=== PATIENT | male | born 1945 | race Caucasian/White ===

== ENCOUNTER → 2018-12-24 08:29 | Outpatient (CLI) | payer OTHER, SELFPAY ==
[2018-12-24 10:06] LABS: Add Manual Diff / Slide Review NO; Basophils Absolute Auto 0 /uL (0-100); Basophils Percent Auto 0.8 % (0-2); Eosinophils Absolute Auto 100 /uL (0-450); Eosinophils Percent Auto 1.7 % (2-4); Hemoglobin 13.9 g/dL (13.5-17.5); Lymphocytes Absolute Auto 1500 /uL (1100-4500); Lymphocytes Percent Auto 25.5 % (25-40); Mean Corpuscular Hemoglobin 29.8 PG (26-34); Mean Corpuscular Volume 87.6 fL (80-100); Monocytes Absolute Auto 600 /uL (0-900); Neutrophils Absolute Auto 3500 /uL (1500-7000); Platelet Count 224 X10^3/uL (150-400); Red Blood Cell Count 4.68 X10^6/uL (4.5-5.9); Red Cell Distribution Width 13.9 % (11.6-14.8); White Blood Cell Count 5.7 X10^3/uL (4.5-11.0)
[2018-12-24 10:15] LABS: Alanine Aminotransferase 16 IU/L (21-72); Albumin 4.4 g/dL (3.5-5.0); Albumin Globulin Ratio 1.6 (1.0-2.8); Alkaline Phosphatase 126 U/L (38-126); Aspartate Aminotransferase 24 IU/L (17-59); BUN Creatinine Ratio 16.3 (6-22); Bilirubin Total 0.9 mg/dL (0.2-1.3); Blood Urea Nitrogen 13 mg/dL (9-20); Carbon Dioxide 30 mmol/L (22-32); Chloride 104 mmol/L (98-107); Cholesterol 120 mg/dL (140-199); Estimated Glomerular Filt Rate > 60.0 mL/min (>60); Globulin 2.8 g/dL (1.7-4.1); Glucose 91 mg/dL (80-110); HDL Cholesterol 48 mg/dL (40-60); HEMOLYSIS < 15 (0-50); LDL Cholesterol Calculated 63 mg/dL (<100); Potassium 3.8 mmol/L (3.4-5.1); Sodium 145 mmol/L (137-145); Total Protein 7.2 g/dL (6.3-8.2); Triglycerides 46 mg/dL (35-150)
[2018-12-24 10:47] LABS: Thyroid Stimulating Hormone 2.48 uIU/mL (0.47-4.68)
[2018-12-24 10:50] LABS: Prostate Specific Antigen 1.05 ng/mL (0.10-4.00)
== END ==
PROVIDERS: Family Provider Family Medicine; PCP Family Medicine; Visit Provider Family Medicine
DX: E03.9 Hypothyroidism, unspecified (principal); E78.2 Mixed hyperlipidemia; Z00.00 Encounter for general adult medical examination without abnormal findings; Z12.5 Encounter for screening for malignant neoplasm of prostate
CPT/HCPCS: 36415; 80053; 80061; 84153; 84443; 85025

== ENCOUNTER → 2020-09-10 09:01 | Outpatient (CLI) | payer OTHER, SELFPAY ==
[2020-09-10 10:21] LABS: Alanine Aminotransferase 19 IU/L (<50); Albumin 4.5 g/dL (3.5-5.0); Albumin Globulin Ratio 1.8 (1.0-2.8); Alkaline Phosphatase 128 U/L (38-126); Aspartate Aminotransferase 41 IU/L (17-59); BUN Creatinine Ratio 18.2 (6-22); Bilirubin Total 0.7 mg/dL (0.2-1.3); Blood Urea Nitrogen 16 mg/dL (9-20); Calcium 10.2 mg/dL (8.4-10.2); Carbon Dioxide 28 mmol/L (22-32); Chloride 103 mmol/L (98-107); Cholesterol 121 mg/dL (140-199); Estimated Glomerular Filt Rate > 60.0 mL/min (>60); Globulin 2.5 g/dL (1.7-4.1); Glucose 93 mg/dL (80-110); HDL Cholesterol 59 mg/dL (40-60); HEMOLYSIS < 15 (0-50); LDL Cholesterol Calculated 55 mg/dL (<100); Potassium 3.7 mmol/L (3.4-5.1); Sodium 141 mmol/L (137-145); Triglycerides 34 mg/dL (35-150)
[2020-09-10 10:50] LABS: TSH w/ Reflex to FT4 1.46 uIU/mL (0.47-4.68)
[2020-09-10 10:51] LABS: Prostate Specific Antigen Scrn 0.986 ng/mL (0.1-4.0)
== END ==
PROVIDERS: Family Provider Family Medicine; PCP Family Medicine; Referring Provider Family Medicine; Visit Provider Family Medicine
DX: E03.9 Hypothyroidism, unspecified (principal); Z12.5 Encounter for screening for malignant neoplasm of prostate; E78.2 Mixed hyperlipidemia
CPT/HCPCS: 36415; 80053; 80061; 84443; G0103

== ENCOUNTER → 2020-09-21 09:59 | Outpatient (CLI) | payer MEDICARE, SELFPAY ==
[2020-09-21] MEDS: COVID-19 VACC, Ad26(JANSSEN)/PF 0.5 ML IM (10:14)
== END ==
PROVIDERS: Family Provider Family Medicine; PCP Family Medicine; Visit Provider Internal Medicine
DX: Z23 Encounter for immunization (principal)
CPT/HCPCS: 0031A; 91303

== ENCOUNTER 2021-05-31 23:17 | Inpatient (IN) | payer OTHER, SELFPAY ==
[2021-05-31 23:24] VITALS: BP 133/79; PULSE 89; RESP 17; TEMP 37.4; O2SAT 97; BMI 24.2
[2021-05-31 23:40] LABS: Add Manual Diff / Slide Review NO; Basophils Absolute Auto 0 /uL (0-100); Eosinophils Absolute Auto 0 /uL (0-450); Hematocrit 42.4 % (41-53); Hemoglobin 14.6 g/dL (13.5-17.5); Lymphocytes Absolute Auto 200 /uL (1100-4500); Mean Corpuscular HGB Conc 34.4 % (30-36); Mean Corpuscular Hemoglobin 29.5 PG (26-34); Mean Corpuscular Volume 85.5 fL (80-100); Monocytes Absolute Auto 500 /uL (0-900); Neutrophils Absolute Auto 7600 /uL (1500-7000); Platelet Count 193 X10^3/uL (150-400); Red Blood Cell Count 4.96 X10^6/uL (4.5-5.9); Red Cell Distribution Width 13.5 % (11.6-14.8); White Blood Cell Count 8.3 X10^3/uL (4.5-11.0)
[2021-05-31 23:41] LABS: Alanine Aminotransferase 26 IU/L (<50); Albumin 4.2 g/dL (3.5-5.0); Albumin Globulin Ratio 1.7 (1.0-2.8); Alkaline Phosphatase 77 U/L (38-126); Aspartate Aminotransferase 34 IU/L (17-59); BUN Creatinine Ratio 12.5 (6-22); Bilirubin Total 1.1 mg/dL (0.2-1.3); Blood Urea Nitrogen 10 mg/dL (9-20); Carbon Dioxide 32 mmol/L (22-32); Chloride 92 mmol/L (98-107); Estimated Glomerular Filt Rate > 60.0 mL/min (>60); Globulin 2.5 g/dL (1.7-4.1); Glucose 148 mg/dL (80-110); HEMOLYSIS < 15 (0-50); Lipase 10 U/L (23-300); Potassium 3.2 mmol/L (3.4-5.1); Sodium 133 mmol/L (137-145); Total Protein 6.7 g/dL (6.3-8.2)
--- NOTE | 2021-05-31 23:50 | DI.RAD.S_ITS ---
PROCEDURE: XR ACUTE ABDOMEN SERIES INDICATIONS: left lower quadrant pain TECHNIQUE: One view chest and two views of the abdomen were acquired. COMPARISON: None. FINDINGS: Surgical changes and devices: None. Chest: Mild patchy bilateral perihilar and basilar reticulonodular density.. Heart size is normal. No pleural effusions. No pneumoperitoneum. Abdomen: Bowel gas pattern is normal. No suspicious calcifications. Visualized solid organ contours appear normal. Bones: No suspicious bony lesions. IMPRESSION: Mild atypical pneumonia. No acute intra-abdominal process. Dictated by: Christina Alva M.D. on 06/01/2021 at 0:14 Approved by: Christina Alva M.D. on 06/01/2021 at 0:14
[2021-06-01] VITALS (48 sets, daily range): BP systolic 82–167; BP diastolic 6–94; PULSE 57–95; RESP 7–18; TEMP 36.4–37.3; O2SAT 92–100; BMI 24.2
--- NOTE | 2021-06-01 | PATH_ITS ---
[facility] Accession Number: [id number] . 01 Material submitted: . sigmoid colon - SIGMOID COLON . 02 Diagnosis: Sigmoid Colon, Resection (Length 15.0 cm): Extensive serosal exudate and adhesions (perforation per operative report) in a region of disruption. No dysplasia or malignancy identified. Margins appear viable and without diagnostic abnormality. MRV 06/08/2021 1304 Local . 02 Electronically signed: . Nivia Shepherd MD, Pathologist NPI- [id number] . 01 Gross description: . The specimen is received in formalin, labeled sigmoid colon and consists of a 15.0 cm in length by 5.0 cm in diameter portion of colon with two stapled margins. The serosa is brooks-pink and smooth, and there is a 7.0 x 6.0 cm area of brooks-green exudate and fibrinous adhesions, located 3.0 cm from the nearest stapled margin. Opening reveals a brooks-pink mucosa with normal to attenuated mucosal folds. The wall thickness ranges from 0.1-0.5 cm. No lymph node are identified within the attached adipose tissue. Skilled Trades Teacher sections are submitted. . A1-A2: Stapled margins, customer relations representative perpendicular sections (blue and black). A3-A5: Area of disruption with exudate. A6: Skilled Trades Teacher colon. ([id number]) /MRV 06/02/2021 1211 Local . 02 Pathologist provided ICD-10: Z00.01 . 02 CPT . 147907 Performed at: 01 [facility] [address] [facility], [place], [place] [id number] MD Hussein Thurman MD Phone: [phone] Performed at: 02 [facility] [address] [place] [id number] MD Nicki Goodwin MD Phone: [phone]
--- NOTE | 2021-06-01 01:28 | DI.CT.S_ITS ---
PROCEDURE: CT ABDOMEN PELVIS W CON INDICATIONS: severe abdominal pain, lower abdomen TECHNIQUE: After the administration of intravenous contrast, axial sections acquired from the lung bases to the pubic symphysis. Coronal and sagittal reformats were performed. For radiation dose reduction, the following was used: automated exposure control, adjustment of mA and/or kV according to patient size. COMPARISON: None. FINDINGS: Image quality: Excellent. Lung bases: Mild bibasilar atelectasis versus pneumonia. Heart: No significant findings. ABDOMEN: Liver: Unremarkable. Gallbladder: Wall is mildly thickened Biliary ducts: Unremarkable. Pancreas: Unremarkable. Spleen: Unremarkable. Adrenal Glands: Unremarkable. Kidneys and Ureters: Unremarkable. Stomach and Bowel: Stomach is moderately distended. Multiple mildly distended loops of small bowel within the left hemiabdomen which are mildly thickened. Colon is nondistended. There is thickening of the descending and sigmoid colon. There is a large collection of extraluminal stool and gas within the left hemipelvis, spanning roughly 11 cm craniocaudal by 10 cm transverse. Peritoneum: Small amount of free fluid within the abdomen and pelvis. Small amount of pneumoperitoneum in the abdomen and pelvis. Ventral Wall: No hernias. Abdominal Nodes: No retroperitoneal or mesenteric adenopathy by size criteria. Vessels: Aorta and inferior vena cava are normal in size. PELVIS: Pelvic Organs: Unremarkable. Bladder: Unremarkable. Pelvic Nodes: No enlarged lymph nodes. Miscellaneous: No hernias are seen. Bones: Unremarkable. IMPRESSION: 1. Bowel perforation within the left hemipelvis, resulting in a large extraluminal collection of stool. Pneumoperitoneum is also present. This likely represents perforation of the sigmoid colon, secondary to diverticulitis or ischemic bowel. 2. Mildly distended and thickened loops of small bowel within the left pelvis and abdomen, likely secondary. 3. Distended stomach. 4. Findings discussed with Dr. Red on 06/01/2021 at 01:58 hours. Dictated by: Christina Alva M.D. on 06/01/2021 at 1:56 Approved by: Christina Alva M.D. on 06/01/2021 at 2:00
[2021-06-01] MEDS: ONDANSETRON 4 MG/2 ML INJ IV ×2 (01:40→21:51)
[2021-06-01] MEDS: HYDROMORPHONE 1 MG INJ IV (01:40)
[2021-06-01] MEDS: SODIUM CHLORIDE 0.9% 1,000 ML 1000 ML IV (01:41)
--- NOTE | 2021-06-01 01:50 | ED.GENADULT ---
HPI - General Adult General Chief complaint: Abdominal Pain Stated complaint: abd px h/o pancreatitis Time Seen by Provider: 06/01/21 00:40 Source: patient and EMS Mode of arrival: EMS Limitations: no limitations History of Present Illness HPI narrative: 75-year-old gentleman with a history of hypertension, hypothyroidism and BPH who presents with abdominal pain it has been present since this morning and has gotten worse by mid afternoon. He did have a bowel movement this morning that did not influences pain. He describes it is involving his entire lower abdomen, sharp pain that just ?hurts?. Over the last few hours he reports that he has not been passing any flatus. He denies any fevers, cough, chills, nausea or vomiting. He has not had any chest pain, palpitations lower extremity edema. He has never had abdominal pain like this. He denies any abdominal surgeries previously. Related Data Previous Rx's Medication Instructions Recorded loratadine 10 mg tablet (Claritin) 10 mg PO DAILY #90 tab 12/24/18 alprazolam 0.5 mg tablet (Xanax) 0.5 mg PO BIDP PRN #20 tab 12/09/19 levothyroxine 50 mcg tablet 50 mcg PO DAILY #90 tab 09/10/20 tamsulosin 0.4 mg capsule (Flomax) 0.4 mg PO QDAY #90 cap 10/21/20 amoxicillin 875 mg-potassium 1 tab PO BID #20 tab 02/16/21 clavulanate 125 mg tablet (Augmentin) benazepril 20 See Rx Instructions .ROUTE 03/01/21 mg-hydrochlorothiazide 25 mg tablet .COMPLEX #60 tab Allergies Allergy/AdvReac Type Severity Reaction Status Date / Time No Known Drug Allergies Allergy Unverified 09/10/20 09:21 Review of Systems Review of Systems Narrative: Remainder of complete review of systems is otherwise unremarkable except for that included in the HPI. Patient History Medical History Hypertension Hypothyroidism Social History Smoking Status: Current every day smoker Smoking Status: Current every day smoker Substance Use Type: does not use Exam Narrative Exam Narrative: General: Healthy appearing, in obvious abdominal pain. Able to give a complete and coherent history. Well-nourished well-developed HEENT: Moist mucous membranes, normal sclera with reactive pupils, Neck: No JVD, supple Respiratory: Lungs are clear to auscultation, no wheezing no rales no rhonchi. Full and symmetrical air movement Cardiac: Regular rate and rhythm no murmurs no bruits Abdomen: Distended, diffusely tender with guarding in the lower abdomen. Rushes and tinkles appreciated on exam. He does not have any rebound. There is no flank pain Skin: Warm and dry, no rashes Neurologic: Grossly neurologically intact with no obvious asymmetries or abnormalities Extremities: No trauma, well perfused, no lower extremity edema Psych: Cooperative, appropriate insight and affect Initial Vital Signs Initial Vital Signs: Vital Signs Temperature 99.3 F 05/31/21 23:24 Pulse Rate 89 05/31/21 23:24 Respiratory Rate 17 05/31/21 23:24 Blood Pressure 133/79 05/31/21 23:24 Pulse Oximetry 97 05/31/21 23:24 Course Orders Ordered: ED Orders 05/31/21 23:33 Complete Blood Count AUTO DIFF Stat Comprehensive Metabolic Panel Stat Lipase Stat 05/31/21 23:50 XR acute abdomen series Stat 06/01/21 01:28 CT abdomen pelvis w con Stat 06/01/21 02:11 Blood Culture Stat Lactate (Lactic Acid) Stat 06/01/21 03:00 COVID19 - ADMIT (CEMENT TESTER ASSISTANT swab/PCR) Stat Hydromorphone HCl (Hydromorphone 0.5 Mg Inj) 0.5 mg IV Q15MIN PRN PRN Reason: Pain, Last Admin: 06/01/21 03:04 Dose: 0.5 mg Documented by: Admin: 06/01/21 02:30 Dose: 0.5 mg Documented by: FREEMAN Discontinued Medications Hydromorphone HCl (Hydromorphone 1 Mg Inj) 1 mg IV NOW ONE Stop: 06/01/21 01:29 Last Admin: 06/01/21 01:40 Dose: 1 mg Documented by: JESSIE Sodium Chloride (Normal Saline 0.9%) 1,000 mls @ 1,000 mls/hr IV BOLUS ONE Stop: 06/01/21 02:27 Last Infusion: 06/01/21 03:05 Dose: 0 mls/hr Documented by: Admin: 06/01/21 01:41 Dose: 1,000 mls/hr Documented by: JESSIE Piperacillin Sod/Tazobactam (Sod 4.5 gm/ Sodium Chloride) 100 mls @ 200 mls/hr IV NOW ONE Stop: 06/01/21 02:01 Last Infusion: 06/01/21 03:05 Dose: 0 mls/hr Documented by: Admin: 06/01/21 02:28 Dose: 200 mls/hr Documented by: FREEMAN Lidocaine HCl (Lidocaine 2% (Glydo) 6 Ml Gel) 6 ml TOP NOW ONE Stop: 06/01/21 02:27 Last Admin: 06/01/21 02:28 Dose: 6 ml Documented by: FREEMAN Ondansetron HCl (Ondansetron 4 Mg/2 Ml Inj) 4 mg IV NOW ONE Stop: 06/01/21 01:29 Last Admin: 06/01/21 01:40 Dose: 4 mg Documented by: JESSIE Vital Signs Vital signs: Vital Signs - 8 hr 05/31/21 23:24 06/01/21 00:06 06/01/21 00:30 Temperature 99.3 F Pulse Rate 89 88 75 Respiratory Rate 17 Blood Pressure 133/79 144/80 H 119/62 Pulse Oximetry 97 99 96 06/01/21 01:00 06/01/21 01:30 06/01/21 01:49 Temperature Pulse Rate 78 81 95 H Respiratory Rate Blood Pressure 131/68 129/67 158/74 H Pulse Oximetry 97 96 98 06/01/21 02:00 Temperature Pulse Rate 80 Respiratory Rate Blood Pressure 136/60 Pulse Oximetry 98 Medical Decision Making Lab Data Result diagrams: 05/31/21 23:33 05/31/21 23:33 Labs: Lab Results 05/31/21 05/31/21 06/01/21 Range/Units 23:33 23:33 02:11 WBC 8.3 (4.5-11.0) X10^3/uL RBC 4.96 (4.5-5.9) X10^6/uL Hgb 14.6 (13.5-17.5) g/dL Hct 42.4 (41-53) % MCV 85.5 (80-100) fL MCH 29.5 (26-34) PG MCHC 34.4 (30-36) % RDW 13.5 (11.6-14.8) % Plt Count 193 (150-400) X10^3/uL Neut % (Auto) 91.0 H (50-75) % Lymph % (Auto) 3.0 L (25-40) % [place] % (Auto) 6.0 (3-14) % Eos % (Auto) 0.0 L (2-4) % Baso % (Auto) 0.0 (0-2) % Neut # (Auto) 7600 H (1524-6545) /uL Lymph # (Auto) 200 L (0371-3232) /uL [place] # (Auto) 500 (0-900) /uL Eos # (Auto) 0 (0-450) /uL Baso # (Auto) 0 (0-100) /uL Sodium 133 L (137-145) mmol/L Potassium 3.2 L (3.4-5.1) mmol/L Chloride 92 L (98-107) mmol/L Carbon Dioxide 32 (22-32) mmol/L BUN 10 (9-20) mg/dL Creatinine 0.80 (0.66-1.25) mg/dL Estimated GFR > 60.0 (>60) mL/min BUN/Creatinine Ratio 12.5 (6-22) Glucose 148 H (80-110) mg/dL Lactate 1.9 (0.7-2.1) mmol/L Calcium 10.0 (8.4-10.2) mg/dL Total Bilirubin 1.1 (0.2-1.3) mg/dL AST 34 (17-59) IU/L ALT 26 (<50) IU/L Alkaline Phosphatase 77 (38-126) U/L Total Protein 6.7 (6.3-8.2) g/dL Albumin 4.2 (3.5-5.0) g/dL Globulin 2.5 (1.7-4.1) g/dL Albumin/Globulin Ratio 1.7 (1.0-2.8) Lipase 10 L (23-300) U/L Imaging Data Chest x-ray: Radiologist's Impression: FINDINGS:? ? Surgical changes and devices:? None.? ? Chest:? Mild patchy bilateral perihilar and basilar reticulonodular density..? Heart size is normal.? No pleural effusions.? No pneumoperitoneum.? ? Abdomen:? Bowel gas pattern is normal.? No suspicious calcifications.? Visualized solid organ contours appear normal.? ? Bones:? No suspicious bony lesions.? ? IMPRESSION:? Mild atypical pneumonia.? No acute intra-abdominal process. ? ? Dictated by: Christina Alva M.D. on 06/01/2021 at 0:14 ? ? CT scan - abdomen/pelvis: Radiologist's Impression: FINDINGS:? Image quality:? Excellent.? ? Lung bases:? Mild bibasilar atelectasis versus pneumonia. Heart:? No significant findings. ? ABDOMEN: Liver:? Unremarkable.? ? Gallbladder:? Wall is mildly thickened? ? Biliary ducts:? Unremarkable.? ? Pancreas:? Unremarkable.? ? Spleen:? Unremarkable.? ? Adrenal Glands:? Unremarkable.? ? Kidneys and Ureters:? Unremarkable.? ? ? Stomach and Bowel:? Stomach is moderately distended.? Multiple mildly distended loops of small bowel within the left hemiabdomen which are mildly thickened.? Colon is nondistended.? There is thickening of the descending and sigmoid colon.? There is a large collection of extraluminal stool and gas within the left hemipelvis, spanning roughly 11 cm craniocaudal by 10 cm transverse. Peritoneum:? Small amount of free fluid within the abdomen and pelvis.? Small amount of pneumoperitoneum in the abdomen and pelvis. ? Ventral Wall: ? No hernias.? Abdominal Nodes:? No retroperitoneal or mesenteric adenopathy by size criteria.? Vessels:? Aorta and inferior vena cava are normal in size.? ? PELVIS: Pelvic Organs:? Unremarkable.? ? Bladder:? Unremarkable.? ? Pelvic Nodes: No enlarged lymph nodes.? Miscellaneous: No hernias are seen. ? ? ? Bones:? Unremarkable.? IMPRESSION:? 1. Bowel perforation within the left hemipelvis, resulting in a large extraluminal collection of stool.? Pneumoperitoneum is also present.? This likely represents perforation of the sigmoid colon, secondary to diverticulitis or ischemic bowel. 2. Mildly distended and thickened loops of small bowel within the left pelvis and abdomen, likely secondary. 3. Distended stomach. 4. Findings discussed with Dr. Red on 06/01/2021 at 01:58 hours.? ? Dictated by: Christina Alva M.D. on 06/01/2021 at 1:56 ? ? ECG Data Interpretation: Sinus rhythm with arrhythmia Rate of 87 No acute ischemia MDM Narrative Medical decision making narrative: Basically healthy 75-year-old gentleman with increasing abdominal pain over the last 12 hours. He notes in retrospect that he has been somewhat more constipated over the last couple days but that is not a chronic problem for him. Lab work was reassuring and initial chest x-ray did not suggest dramatic abnormalities however clinical exam was concerning for acute surgical abdomen so CT scan was pursued. CT scan with multiple significant findings including a bowel perforation in the left hemipelvis resulting in a large extraluminal collection of stool. Pneumoperitoneum. Likely represents perforation of the sigmoid colon secondary to diverticulitis or ischemic bowel. Distended stomach. Discussed with Dr Alva at 1:50 am 2:[address] Rose, general surgeon. Reviewed findings in case. Agreed with plan for NG tube, antibiotics, pain control, gentle IV hydration and operating room early this morning. Will be admitted as an inpatient to Dr. Rose. 2:10am findings reviewed with patient. After a full mg of Dilaudid his pain is much better controlled. Currently working on additional blood work, COVID testing an NG tube placement. Findings are reviewed with him along with anticipated emergent surgery in a couple of hours with resulting colostomy expected. Of note, his is currently admitted to the hospital after having had a stroke. 2:20 pain is currently controlled, he is hemodynamically stable. supervisor beet end has been notified of anticipated sole painter surgery. 5:15 approximately 800 cc of fluid out of the NG tube in pain is much better controlled at this time. Resting comfortably . Discharge Plan Departure Patient Disposition: Admitted As Inpatient Clinical Impression: Bowel perforation, Pneumoperitoneum Admit Date/Time: 06/01/21 02:17 Admit Provider: Bala Rose
[2021-06-01] MEDS: LIDOCAINE 2% (GLYDO) 6 ML GEL TOP (02:28)
[2021-06-01] MEDS: PIPERACILLIN/TAZO 4.5 GM in SODIUM CHLORIDE 0.9% 100 ML 200 ML IV (02:28)
[2021-06-01] MEDS: HYDROMORPHONE 0.5 MG INJ IV ×3 (02:30→06:03)
[2021-06-01 02:40] LABS: Lactate (Lactic Acid) 1.9 mmol/L (0.7-2.1)
[2021-06-01 04:42] LABS: COVID19 - ADMIT (NP swab/PCR) Negative (Negative)
--- NOTE | 2021-06-01 06:03 | PC.NURSE ---
Dr. Rose in ED for surgical consult.
--- NOTE | 2021-06-01 06:08 | PM.HP.1 ---
History of Present Illness History of Present Illness Date Patient Seen: 06/01/21 Time Patient Seen: 06:08 Date of Onset of Symptoms: 05/31/21 Chief complaint: Abdominal pain Narrative: Elkin is a 75-year-old man who presents today to the emergency department overnight complaining of several hours of severe abdominal pain. He had a bowel movement yesterday morning which was unremarkable. He has been constipated for several days. He did take 1 narcotic pain pill for hip pain several days ago. He is not normally constipated. He had a colonoscopy many years ago but he is not sure exactly when. Patient History Medical History Hypertension Hypothyroidism Family & Social History Safety & Behavioral: Feels Safe in Current Yes Environment Tobacco & Substance use: Smoking Status Current every day smoker Substance Use Type does not use Meds Home Medications and Allergies Home Medications Medication Instructions Recorded Confirmed Type loratadine 10 mg tablet (Claritin) 10 mg PO DAILY #90 tab 12/24/18 Rx alprazolam 0.5 mg tablet (Xanax) 0.5 mg PO BIDP PRN #20 tab 12/09/19 Rx levothyroxine 50 mcg tablet 50 mcg PO DAILY #90 tab 09/10/20 09/10/20 Rx tamsulosin 0.4 mg capsule (Flomax) 0.4 mg PO QDAY #90 cap 10/21/20 10/21/20 Rx amoxicillin 875 mg-potassium 1 tab PO BID #20 tab 02/16/21 Rx clavulanate 125 mg tablet (Augmentin) benazepril 20 See Rx Instructions .ROUTE 03/01/21 Rx mg-hydrochlorothiazide 25 mg tablet .COMPLEX #60 tab Allergies Allergy/AdvReac Type Severity Reaction Status Date / Time No Known Drug Allergies Allergy Unverified 09/10/20 09:21 Exam Vital Signs (past 8 hours): - 05/31/21 23:24 06/01/21 00:06 06/01/21 00:30 Temperature 99.3 F Pulse Rate 89 88 75 Respiratory Rate 17 Blood Pressure 133/79 144/80 H 119/62 Pulse Oximetry 97 99 96 06/01/21 01:00 06/01/21 01:30 06/01/21 01:49 Temperature Pulse Rate 78 81 95 H Respiratory Rate Blood Pressure 131/68 129/67 158/74 H Pulse Oximetry 97 96 98 06/01/21 02:00 06/01/21 02:30 06/01/21 03:00 Temperature Pulse Rate 80 87 84 Respiratory Rate Blood Pressure 136/60 119/67 151/68 H Pulse Oximetry 98 94 92 06/01/21 03:30 06/01/21 04:00 06/01/21 04:30 Temperature Pulse Rate 59 L 61 62 Respiratory Rate Blood Pressure 116/71 128/66 Pulse Oximetry 97 98 98 06/01/21 05:00 06/01/21 05:30 Temperature Pulse Rate 61 63 Respiratory Rate Blood Pressure 130/65 121/71 Pulse Oximetry 99 99 Oxygen Delivery Method Room Air Const General: healthy appearing Resp Effort & Inspection: normal respiratory effort Cardio Rate: regular rate GI Other: Rigid abdomen Objective Labs Result Diagrams: 05/31/21 23:33 05/31/21 23:33 Labs: Laboratory Results - last 24 hr 05/31/21 05/31/21 06/01/21 23:33 23:33 02:11 WBC 8.3 RBC 4.96 Hgb 14.6 Hct 42.4 MCV 85.5 MCH 29.5 MCHC 34.4 RDW 13.5 Plt Count 193 Neut % (Auto) 91.0 H Lymph % (Auto) 3.0 L [place] % (Auto) 6.0 Eos % (Auto) 0.0 L Baso % (Auto) 0.0 Neut # (Auto) 7600 H Lymph # (Auto) 200 L [place] # (Auto) 500 Eos # (Auto) 0 Baso # (Auto) 0 Sodium 133 L Potassium 3.2 L Chloride 92 L Carbon Dioxide 32 BUN 10 Creatinine 0.80 Estimated GFR > 60.0 BUN/Creatinine Ratio 12.5 Glucose 148 H Lactate 1.9 Calcium 10.0 Total Bilirubin 1.1 AST 34 ALT 26 Alkaline Phosphatase 77 Total Protein 6.7 Albumin 4.2 Globulin 2.5 Albumin/Globulin Ratio 1.7 Lipase 10 L SARS-CoV-2 (PCR) 06/01/21 03:00 WBC RBC Hgb Hct MCV MCH MCHC RDW Plt Count Neut % (Auto) Lymph % (Auto) [place] % (Auto) Eos % (Auto) Baso % (Auto) Neut # (Auto) Lymph # (Auto) [place] # (Auto) Eos # (Auto) Baso # (Auto) Sodium Potassium Chloride Carbon Dioxide BUN Creatinine Estimated GFR BUN/Creatinine Ratio Glucose Lactate Calcium Total Bilirubin AST ALT Alkaline Phosphatase Total Protein Albumin Globulin Albumin/Globulin Ratio Lipase SARS-CoV-2 (PCR) Negative Assessment & Plan Assessment and plan (1) Perforated sigmoid colon: Status: Acute Plan I explained to Elkin that the CT indicates that he has perforated sigmoid colon with feculent peritonitis. I suspect this is a perforated stercoral ulcer however perforated diverticulitis or perforated colon cancer are also possible. I explained to him that he will need emergency exploratory laparotomy with an end colostomy. Although he is hemodynamically stable now I would expect him to quickly become very ill eventually if we do not proceed to the surgery this morning. I explained that he will have a colostomy when he wakes up from surgery and this will be temporary as long as he remains healthy and can be reversed 3 to 6 months after surgery. He is receiving Zosyn in the ER now. He would like to proceed with surgery. Time Spent With Patient Critical Care time: I spent a total of [] minutes of critical care time on this patient's care today; this time is exclusive of procedural time.
--- NOTE | 2021-06-01 06:50 | PC.NURSE ---
OR team here to transport pt to surgery
[2021-06-01] MEDS: LACTATED RINGERS 1,000 ML 42 ML IV ×3 (07:11→13:54)
[2021-06-01] MEDS: LIDOCAINE 2% W/EPI INJ 20 ML INJ (07:40)
--- NOTE | 2021-06-01 07:45 | SUR.OPER ---
Supine on padded OR bed, head on pillow, arms secured on padded arm boards at <90 degrees abduction, legs uncrossed, safety belt at thigh, tape over blanket over lower legs.
[2021-06-01] MEDS: ACETAMINOPHEN 1,000 MG/100 ML VIAL IV (07:50)
[2021-06-01] MEDS: PIPERACILLIN/TAZO 3.375 GM in SODIUM CHLORIDE 0.9% 100 ML 25 ML IV (09:42)
[2021-06-01] MEDS: BUPIVACAINE LIPOSOME 266 MG/20 ML VIAL INJ (09:45)
--- NOTE | 2021-06-01 10:43 | PM.OP.1 ---
Operative Date/Time/Diagnoses Date of procedure: 06/01/21 Time of procedure: 10:43 Pre-op diagnosis: Perforated sigmoid colon Post-op diagnosis: same Procedure & Clinicians Procedure: Exploratory laparotomy, sigmoid colectomy, peritoneal lavage and end colostomy Same procedure as scheduled: Yes Indications: Perforated sigmoid colon Surgeon: Bala Rose Click Yes if Unassisted: Yes Anesthesia Type: General Operative Notes Findings: Large full-thickness perforation of the proximal sigmoid colon with a 5 cm collection of solid stool in the sigmoid mesentery Applied: catheter and drain(s) Estimated Blood Loss (mL): 40 Procedure in detail: The patient was on Zosyn. The patient was brought to the operating room, placed on the table in the supine position and general endotracheal anesthesia was induced. A Monroe catheter was placed. The abdomen was prepped and draped in the usual fashion. A time-out was performed. A 10 cm low midline incision was created sharply and extended to the superior portion of the umbilicus skirting to the right. The fascia was divided with cautery. The posterior sheath was grasped between clamps and divided sharply. The peritoneum was entered and some murky ascites was suctioned. The large Amado wound retractor was placed. A Bookwalter retractor was set up. We explored the abdomen and found be some solid stool extruding from what looked like a hole in the mid sigmoid colon. We started to mobilize the sigmoid colon by taking it down along the white line of Toldt laterally. Initially, it appeared that we had entered the colon but soon realized that there was a large collection of solid stool in the sigmoid mesentery. This was scooped out by hand. We observed a 1 cm defect along the mesenteric aspect of the sigmoid colon which was the original source of the perforation. We then divided the colon at the proximal end of the sigmoid portion with a contour stapler. We started to take down the mesentery with LigaSure until we were well past the large hole. The distal portion of the sigmoid colon was again divided with a contour stapler. We removed the portion of sigmoid colon and proceeded to irrigate the pelvis with about 8 L of warm saline. There was a rather long rectal stump. We marked each corner of the staple line of the rectal stump with a 3-0 Prolene suture left long. We then proceeded to irrigate the rest of the abdomen until all visible evidence of contamination was gone. Next, we mobilized the descending colon to the splenic flexure allowing the colon to easily reach the left lower quadrant abdominal wall. We then created a colostomy site in the left lower quadrant and brought out the end of the colon. At this point we transitioned to clean gloves and gowns. We placed a 19 round Torsten drain into the left pelvis where the abscess cavity had been. We brought the drain out through a right lower quadrant stab incision, secured to the skin with a 3-0 nylon stitch and attached a bulb. Next, we injected some Exparel into the fascia and closed the midline wound with running 0 PDS suture. We then irrigated the subcutaneous wound and closed the skin with kiah. A negative pressure dressing was applied. Finally, we matured the colostomy in a Lakeisha fashion and applied a colostomy appliance. The patient was awakened and brought to recovery room. EBL 40 mL. Post-operative Condition: stable Disposition: PACU
--- NOTE | 2021-06-01 12:41 | SUR.PHASEI ---
took back over on the patient. woke up extremely anxious. tries to pull out catheter. impulsive. dr fernandez called and notified. will write orders accordingly. two nurses remain at bedside to avoid patient pulling out tubes.
[2021-06-01] MEDS: HALOPERIDOL 5 MG/ML VIAL 2.5 MG IV (12:50)
--- NOTE | 2021-06-01 13:01 | SUR.PHASEI ---
Prior to taking over the patient, patient had pulled his catheter tube fairly hard per ELADIO Murphy. patient remained aggitated. once haldol given and patient settled down we did a closer examination. ELADIO Herbert felt a ball in the shaft of his penis when assessing monroe function as we did not see urine return in the last 15 minutes. When 10cc syringe placed to deflate balloon, only air was returned, no liquid. MD notified via phone in OR. During this time entire monroe slipped out of penis. No bleeding noted from penis. MD immediately notified. Monroe placed in bag for inspection. Patient able to rest at this time. NG noted to have coffee ground colored drainage at this time, differing from original orange color prior. Colostomy remains pink, moist. Very tiny spots x2 on dressing, bloody in nature. JEFFRY Drain remains intact with serosanguenous drainage. Abdomen soft and flat.
--- NOTE | 2021-06-01 13:48 | SUR.PHASEI ---
Dr Raygoza to bedside. Examines old catheter tip and states is WNL. No bleeding continued to be noted from penis. Dr Raygoza inserted 20 g catheter with no problems or difficulties. Patient johny well.
[2021-06-01 14:24] LABS: Add Manual Diff / Slide Review NO; Basophils Absolute Auto 0 /uL (0-100); Basophils Percent Auto 0.1 % (0-2); Eosinophils Absolute Auto 0 /uL (0-450); Hematocrit 37.7 % (41-53); Hemoglobin 13.1 g/dL (13.5-17.5); Lymphocytes Absolute Auto 300 /uL (1100-4500); Lymphocytes Percent Auto 3.6 % (25-40); Mean Corpuscular HGB Conc 34.7 % (30-36); Mean Corpuscular Hemoglobin 29.8 PG (26-34); Mean Corpuscular Volume 85.8 fL (80-100); Monocytes Absolute Auto 300 /uL (0-900); Monocytes Percent Auto 3.1 % (3-14); Neutrophils Absolute Auto 8200 /uL (1500-7000); Neutrophils Percent Auto 93.2 % (50-75); Platelet Count 162 X10^3/uL (150-400); Red Blood Cell Count 4.39 X10^6/uL (4.5-5.9); Red Cell Distribution Width 13.6 % (11.6-14.8); White Blood Cell Count 8.8 X10^3/uL (4.5-11.0)
--- NOTE | 2021-06-01 14:37 | P.CONS_ITS ---
History of Present Illness Consult details Date Patient Seen: 06/01/21 Time Patient Seen: 14:37 Chief complaint: Abdominal pain Reason for consult: Traumatic removal of Monroe catheter Requesting provider: Bala Rose Narrative: This is a 75-year-old male who underwent emergent operation for apparent colonic rupture with stool in peritoneal cavity. He now has a colostomy, JEFFRY, an NG, as well as a Monroe. In in the PACU as he was waking up he became combative, and pulled his Monroe out. There was no bleeding, nursing did report a ?lump in the urethra, with further questioning this was the Monroe they deflated it and the catheter was easily removed. The patient had a silicone catheter but has no allergies. I discussed things with Dr. Rose and he feels that the patient would benefit from a Monroe catheter moving forward given the operation that he had and the disease process he was suffering from. Procedure: Noting that the patient needed a Monroe catheter the patient was prepped with Betadine and draped in a sterile fashion. The patient then had 2% viscous lidocaine instilled within the urethra as well as surgical lubricant and a 20 [place] 5 cc Monroe catheter was passed through the urethra and into the bladder without difficulty. The balloon was filled with 10 cc of sterile water and placed to gravity drainage. Clear yellow urine was observed to be flowing. Nursing was instructed to secure the Monroe and the patient was admonished not to full with any tube coming out of his body presently. These findings were then discussed with Dr. Rose letting him know that the Monroe catheter is in place and could be removed at his leisure. Meds Home Medications and Allergies Home Medications Medication Instructions Recorded Confirmed Type loratadine 10 mg tablet (Claritin) 10 mg PO DAILY #90 tab 12/24/18 Rx alprazolam 0.5 mg tablet (Xanax) 0.5 mg PO BIDP PRN #20 tab 12/09/19 Rx levothyroxine 50 mcg tablet 50 mcg PO DAILY #90 tab 09/10/20 09/10/20 Rx tamsulosin 0.4 mg capsule (Flomax) 0.4 mg PO QDAY #90 cap 10/21/20 10/21/20 Rx amoxicillin 875 mg-potassium 1 tab PO BID #20 tab 02/16/21 Rx clavulanate 125 mg tablet (Augmentin) benazepril 20 See Rx Instructions .ROUTE 03/01/21 Rx mg-hydrochlorothiazide 25 mg tablet .COMPLEX #60 tab Allergies Allergy/AdvReac Type Severity Reaction Status Date / Time No Known Drug Allergies Allergy Verified 06/01/21 09:29 Exam Vital Signs (past 8 hours): - 06/01/21 10:43 06/01/21 10:48 06/01/21 10:53 Temperature 97.5 F L Pulse Rate 65 63 62 Respiratory Rate 12 10 L 10 L Blood Pressure 82/46 L 85/46 L 87/47 L Pulse Oximetry 97 96 95 06/01/21 10:58 06/01/21 11:03 06/01/21 11:08 Temperature 97.5 F L Pulse Rate 63 62 62 Respiratory Rate 10 L 10 L 9 L Blood Pressure 86/51 L 90/49 L 97/50 L Pulse Oximetry 97 98 98 06/01/21 11:13 06/01/21 11:18 06/01/21 11:23 Temperature Pulse Rate 61 60 61 Respiratory Rate 8 L 10 L 8 L Blood Pressure 91/54 L 92/53 L 100/52 L Pulse Oximetry 98 98 98 06/01/21 11:29 06/01/21 11:34 06/01/21 11:39 Temperature Pulse Rate 59 L 60 62 Respiratory Rate 8 L 8 L 8 L Blood Pressure 95/52 L 94/55 L 98/55 L Pulse Oximetry 98 98 98 06/01/21 11:43 06/01/21 11:48 06/01/21 11:55 Temperature Pulse Rate 57 L 59 L 58 L Respiratory Rate 7 L 8 L 8 L Blood Pressure 94/56 L 95/57 L 90/56 L Pulse Oximetry 98 98 98 06/01/21 12:00 06/01/21 12:05 06/01/21 12:09 Temperature 99.2 F Pulse Rate 61 64 60 Respiratory Rate 10 L 18 10 L Blood Pressure 107/6 L 101/63 99/66 Pulse Oximetry 97 99 97 06/01/21 12:16 06/01/21 12:30 06/01/21 12:45 Temperature Pulse Rate 60 81 74 Respiratory Rate 8 L 12 15 Blood Pressure 123/63 156/80 H 167/77 H Pulse Oximetry 100 95 97 06/01/21 12:53 06/01/21 13:08 06/01/21 13:18 Temperature Pulse Rate 88 62 65 Respiratory Rate 15 12 12 Blood Pressure 139/77 110/62 98/56 L Pulse Oximetry 95 99 99 06/01/21 13:33 06/01/21 13:49 Temperature Pulse Rate 73 69 Respiratory Rate 16 15 Blood Pressure 144/62 H Pulse Oximetry 99 99 Oxygen Delivery Method Nasal Cannula Oxygen Flow Rate 2 Narrative Exam Narrative: General: This is a somnolent male resting in his bed who is noted to have somewhat restless legs. Genitourinary exam normal uncircumcised appearing penis, normal meatus without evidence of blood, normal penile shaft, normal scrotum, normal testes. Objective Labs Result Diagrams: 06/01/21 14:10 05/31/21 23:33 Labs: Laboratory Results - last 24 hr 05/31/21 05/31/21 06/01/21 23:33 23:33 02:11 WBC 8.3 RBC 4.96 Hgb 14.6 Hct 42.4 MCV 85.5 MCH 29.5 MCHC 34.4 RDW 13.5 Plt Count 193 Neut % (Auto) 91.0 H Lymph % (Auto) 3.0 L [place] % (Auto) 6.0 Eos % (Auto) 0.0 L Baso % (Auto) 0.0 Neut # (Auto) 7600 H Lymph # (Auto) 200 L [place] # (Auto) 500 Eos # (Auto) 0 Baso # (Auto) 0 Sodium 133 L Potassium 3.2 L Chloride 92 L Carbon Dioxide 32 BUN 10 Creatinine 0.80 Estimated GFR > 60.0 BUN/Creatinine Ratio 12.5 Glucose 148 H Lactate 1.9 Calcium 10.0 Total Bilirubin 1.1 AST 34 ALT 26 Alkaline Phosphatase 77 Total Protein 6.7 Albumin 4.2 Globulin 2.5 Albumin/Globulin Ratio 1.7 Lipase 10 L SARS-CoV-2 (PCR) 06/01/21 06/01/21 03:00 14:10 WBC 8.8 RBC 4.39 L Hgb 13.1 L Hct 37.7 L MCV 85.8 MCH 29.8 MCHC 34.7 RDW 13.6 Plt Count 162 Neut % (Auto) 93.2 H Lymph % (Auto) 3.6 L [place] % (Auto) 3.1 Eos % (Auto) 0.0 L Baso % (Auto) 0.1 Neut # (Auto) 8200 H Lymph # (Auto) 300 L [place] # (Auto) 300 Eos # (Auto) 0 Baso # (Auto) 0 Sodium Potassium Chloride Carbon Dioxide BUN Creatinine Estimated GFR BUN/Creatinine Ratio Glucose Lactate Calcium Total Bilirubin AST ALT Alkaline Phosphatase Total Protein Albumin Globulin Albumin/Globulin Ratio Lipase SARS-CoV-2 (PCR) Negative [facility] Medical History (Updated 06/01/21 @ 14:48 by Mando Raygoza MD) Hypertension Hypothyroidism Trauma of urethra Tobacco & Substance Use Smoking Status: Current every day smoker Assessment & Plan Assessment and plan (1) Trauma of urethra: Qualifiers: Encounter type: initial encounter Qualified Code(s): S37.30XA - Unspecified injury of urethra, initial encounter Status: Acute Plan Assessment and plan: Patient with traumatic removal of Monroe catheter without apparent significant sequelae. Plan Monroe catheter is replaced 20 [place] 5 cc atraumatically resulting in the flow of clear yellow urine. Catheter can be removed at the surgeon's pleasure. Time Spent With Patient Time with patient: less than 30 minutes Critical Care time: I spent a total of [] minutes of critical care time on this patient's care today; this time is exclusive of procedural time.
[2021-06-01 14:38] LABS: BUN Creatinine Ratio 14.4 (6-22); Blood Urea Nitrogen 15 mg/dL (9-20); Calcium 8.7 mg/dL (8.4-10.2); Carbon Dioxide 31 mmol/L (22-32); Chloride 97 mmol/L (98-107); Estimated Glomerular Filt Rate > 60.0 mL/min (>60); Glucose 126 mg/dL (80-110); HEMOLYSIS < 15 (0-50); Potassium 3.8 mmol/L (3.4-5.1); Sodium 134 mmol/L (137-145)
[2021-06-01] MEDS: DEXTROSE 5%-0.45NS W/KCL 40MEQ 1,000 ML 125 MEQ IV ×2 (15:06→22:45)
--- NOTE | 2021-06-01 18:59 | PC.NURSE ---
Pt arrived from PACU at approx 1430. A/O but drowsy and surprised he has colostomy. States he is overwhelmed with the process. NG connected to LIS. Oriented to room and call system.
[2021-06-01] MEDS: GABAPENTIN 300 MG CAPSULE PO (21:51)
[2021-06-01] MEDS: HYDROCODONE/ACET 5/325 TABLET 1 TAB PO (21:51)
[2021-06-02 01:00] VITALS: BP 136/72; PULSE 73; RESP 16; TEMP 37; O2SAT 96
[2021-06-02 05:02] VITALS: BP 121/71; PULSE 75; RESP 16; TEMP 36.7; O2SAT 96
[2021-06-02] MEDS: DEXTROSE 5%-0.45NS W/KCL 40MEQ 1,000 ML 125 MEQ IV ×2 (06:28→21:16)
--- NOTE | 2021-06-02 07:32 | P.PN_ITS ---
Subjective Subjective Date Patient Seen: 06/02/21 Time Patient Seen: 07:32 Interval history: No complaints. Exam Vital Signs (past 8 hours): - 06/02/21 01:00 06/02/21 05:02 Temperature 98.6 F 98.1 F Pulse Rate 73 75 Respiratory Rate 16 16 Blood Pressure 136/72 121/71 Pulse Oximetry 96 96 Oxygen Delivery Method Room Air Oxygen Flow Rate 0 Narrative Exam Narrative: Abdomen soft Colostomy looks well perfused. No output yet. Drain bulb contains scant dark bloody fluid Monroe collection bag contains dark yellow urine Objective Labs Result Diagrams: 06/01/21 14:10 06/01/21 14:10 Labs: Laboratory Results - last 24 hr 06/01/21 06/01/21 14:10 14:10 WBC 8.8 RBC 4.39 L Hgb 13.1 L Hct 37.7 L MCV 85.8 MCH 29.8 MCHC 34.7 RDW 13.6 Plt Count 162 Neut % (Auto) 93.2 H Lymph % (Auto) 3.6 L [place] % (Auto) 3.1 Eos % (Auto) 0.0 L Baso % (Auto) 0.1 Neut # (Auto) 8200 H Lymph # (Auto) 300 L [place] # (Auto) 300 Eos # (Auto) 0 Baso # (Auto) 0 Sodium 134 L Potassium 3.8 Chloride 97 L Carbon Dioxide 31 BUN 15 Creatinine 1.04 Estimated GFR > 60.0 BUN/Creatinine Ratio 14.4 Glucose 126 H Calcium 8.7 PFSH Medical History (Updated 06/02/21 @ 07:34 by Bala Rose MD) Hypertension Hypothyroidism Trauma of urethra Social History household members: spouse Smoking Status: Current every day smoker alcohol intake: never Assessment & Plan Assessment and plan (1) Postoperative examination: Status: Acute Plan Doing well postop day. Awaiting colostomy function Will DC NG tube Will continue Monroe catheter for now for close monitoring of urine output and because there was possible urethral trauma when he pulled his Monroe on the PACU. His urine output has been marginal overnight so we will give a normal saline osmani cristhian. Awaiting labs. Will replete electrolytes as needed. Dr. Hinson will be covering for the next few days. Time Spent With Patient Critical Care time: I spent a total of [] minutes of critical care time on this patient's care today; this time is exclusive of procedural time. Quality VTE Deep Vein Thrombosis/Pulmonary Embolism Present on Admission: No
[2021-06-02 07:35] VITALS: BP 142/71; PULSE 70; RESP 17; TEMP 36.4; O2SAT 94
--- NOTE | 2021-06-02 08:40 | PC.NURSE ---
Addendum entered by Emilie Landon R.N. 06/02/21 16:37: Pt sat in chair good portion of day. Denies discomfort when asked. Torsten drain, colostomy w/minimal drainage. IVF continue as per orders. Monroe cath patent maria c urine. Satisfactory post op course. Call light w/in reach, bed alarm on for pt safety. Continue w/plan of care. Original Note: Pt awake, denies discomfort at this time. NG removed as per orders, Tele removed as per orders. Lungs clear, SpO2 96% RA IVF infusing as per orders into the RFA HL LAC intact/patent. BRODY dsg w/small amount old shadow drainage noted. Torsten drain patent Colostomy bag intact/patent. Monroe cath patent maria c urine Call light w/in reach, bed alarm on for pt safety.
[2021-06-02 09:10] LABS: Add Manual Diff / Slide Review NO; Basophils Absolute Auto 0 /uL (0-100); Basophils Percent Auto 0.1 % (0-2); Eosinophils Absolute Auto 0 /uL (0-450); Hematocrit 38.3 % (41-53); Hemoglobin 13.1 g/dL (13.5-17.5); Lymphocytes Absolute Auto 500 /uL (1100-4500); Lymphocytes Percent Auto 5.9 % (25-40); Mean Corpuscular HGB Conc 34.1 % (30-36); Mean Corpuscular Hemoglobin 29.4 PG (26-34); Monocytes Absolute Auto 400 /uL (0-900); Monocytes Percent Auto 4.5 % (3-14); Neutrophils Absolute Auto 8400 /uL (1500-7000); Neutrophils Percent Auto 89.5 % (50-75); Platelet Count 168 X10^3/uL (150-400); Red Blood Cell Count 4.45 X10^6/uL (4.5-5.9); Red Cell Distribution Width 13.9 % (11.6-14.8); White Blood Cell Count 9.4 X10^3/uL (4.5-11.0)
[2021-06-02] MEDS: PIPERACILLIN/TAZO 3.375 GM in SODIUM CHLORIDE 0.9% 100 ML 25 ML IV ×2 (09:15→16:20)
[2021-06-02] MEDS: GABAPENTIN 300 MG CAPSULE PO ×2 (09:16→21:14)
[2021-06-02] MEDS: ENOXAPARIN 40 MG/0.4 ML SYRINGE SUBCUT (09:16)
[2021-06-02 09:24] LABS: BUN Creatinine Ratio 21.3 (6-22); Blood Urea Nitrogen 20 mg/dL (9-20); Calcium 9.1 mg/dL (8.4-10.2); Carbon Dioxide 35 mmol/L (22-32); Chloride 98 mmol/L (98-107); Estimated Glomerular Filt Rate > 60.0 mL/min (>60); Glucose 116 mg/dL (80-110); HEMOLYSIS < 15 (0-50); Potassium 3.5 mmol/L (3.4-5.1); Sodium 136 mmol/L (137-145)
[2021-06-02 13:00] VITALS: BP 161/77; PULSE 63; RESP 16; TEMP 37.7; O2SAT 95
[2021-06-02] MEDS: INFLUENZA HD VACCINE 0.7 ML SYRINGE IM (13:11)
--- NOTE | 2021-06-02 13:18 | CM.DANOTE ---
Patient is a 75 yo male who was admitted on 06/01/21 for Abd Pain. Pt has [facility] for insurance and his PCP is Dr. Jayson Mcmullen. EMR was reviewed. Per Surgeon, pt with a likely perforated Sigmoid Colon and will need exploratory lap and new colostomy. Pt tolerated surgical procedure well but currently no output from his colostomy. 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 Pt drives and does not use DME for ambulation. Pt and spouse have local supportive friends including Rhianna who lives nearby. Pt's spouse was just discharged to [facility] private pay after being admitted for medical care at [employer] until pt recovers from his surgery and with plan of colostomy reversal in a few months. Pt anticipates d/c to home when medically stable and would be agreeable to HH RN if needed for colostomy care. SW provided the HH Choice list and only agency that covers [facility] is [facility]. Mash Filter Operatorjohn Hazel meeting bedside with pt now to discuss foods to promote healing and reduce complications. SW called [facility] with new referral and discussed pt status and JIMI Sanchez kindly faxed clinicals to review for HH RN. F2F completed but needs Surgeon signature if HH RN needed. Plan: SW to follow closely for pt's colostomy to begin having output and pt to tolerate advancing diet and to confirm safe d/c home with possible need of HH RN through [facility] for colostomy care. ARISTEO Daly Discharge Planning/Care Management Advanced directive, confirm from FAMILY Start: 06/01/21 15:00 Freq: Q24H Status: Active Protocol: Document 06/01/21 16:00 GMP (Rec: 06/01/21 18:10 GMP [id number]) Advance Directive, confirm on record Time 16:00 Person contacted pt Copy received No CM Discharge Assessment Start: 06/02/21 13:16 Freq: Status: Active Protocol: Document 06/02/21 13:16 BF (Rec: 06/02/21 13:18 BF [id number]) Discharge Planning Assessment Assigned Supervisor Tubing ARISTEO Suazo Advance Directives? Yes Advance Directives on File No History Provided By Patient,Medical Record Has Patient been admitted in last 30 No days? Prior Living Arrangements House Household Members spouse Type of transporation used prior to Drives own vehicle admit Independent with ADL's Yes Is patient alert and oriented? Yes Caregiver for Another No Patient/Family Preference Home with Home Health Barriers to Discharge No Discharge Plan Home with Home Health Transportation Arrangement friend to likely transport at d/c Referrals Initiated Home Health Additional Comment [facility] for RN colostomy care Medicare Choice List Provided Yes SNF/HH Preference [facility] due to [facility] Has Agency SNF been contacted Yes Whiteboard Updated in Patient Room with Yes name and ext. # of Supervisor Tubing Review Status In Process Please Provide Date Initial DC 06/02/21 Assessment Was Performed Next Review Type Continued Stay Review
--- NOTE | 2021-06-02 14:26 | CM.DPNOTE ---
Faxed referral packet to [facility] per Lakeisha and received fax conf. Laura Soto CM Asst.
--- NOTE | 2021-06-02 16:21 | DIET.PN1 ---
Dietary Progress Note Assessment: 75y M s/p colon resection and colostomy after perforation of sigmoid colon c spillage. Pt tearful throughout bedside assessment, finding comfort in SENIOR WEB ANALYST Jeremy as well as the two cedar trees outside patient room. Pt has poor dentition and is picky eater so has trouble with roughage/seeds in diet. Usual Diet: B: canned peaches, cream of wheat, black tea c sugar L: Diet Pepsi and cookies D: TV dinner (used to like steak and potatoes) Ht: 167.64 cm Wt: 68.039 kg BMI: 24.2 Last BM: 05/30/21 (06/01/21 03:06) MNA: Daren Score: 17 Diet: 06/01/21 18:16 NPO Diet Diet Modifications: Ice chips okay NPO Type: NPO except for Meds 06/02/21 Dinner Clear Liquid Diet Diet Modifications: Ensure Clear c trays Nutrition Percent Meal Consumed 50% 06/02/21 10:30 Labs: RBC 4.45 X10^6/uL (4.5-5.9) L 06/02/21 08:49 Hgb 13.1 g/dL (13.5-17.5) L 06/02/21 08:49 Hct 38.3 % (41-53) L 06/02/21 08:49 Creatinine 0.94 mg/dL (0.66-1.25) 06/02/21 08:49 Lactate 1.9 mmol/L (0.7-2.1) 06/01/21 02:11 Nutrition Diagnosis: altered GI function r/t colostomy Interventions: 1. Using Colostomy Medical Nutrition Therapy handout educated pt on nutrition to support healing and diet reccs for next 6w including following low fiber diet and ensuring good fluid intake. Handout goes into detail on foods which may cause blockage, increase or decrease output, increase or decrease odor. Pts questions answered at this time. Monitoring/Evaluations: POs, diet advancement Electronically Signed by: Yasemin Gilbert 06/02/21 16:[address] [address]
[2021-06-02 21:10] VITALS: BP 143/97; PULSE 74; RESP 18; TEMP 37.7; O2SAT 96
[2021-06-02] MEDS: HYDROCODONE/ACET 5/325 TABLET 1 TAB PO (21:14)
[2021-06-03] VITALS (11 sets, daily range): BP systolic 136–179; BP diastolic 80–90; PULSE 59–72; RESP 18; TEMP 36.9–37.1; O2SAT 93–98
[2021-06-03] MEDS: PIPERACILLIN/TAZO 3.375 GM in SODIUM CHLORIDE 0.9% 100 ML 25 ML IV ×3 (00:06→17:22)
[2021-06-03] MEDS: DEXTROSE 5%-0.45NS W/KCL 40MEQ 1,000 ML 125 MEQ IV ×3 (04:45→21:49)
[2021-06-03 05:52] LABS: Add Manual Diff / Slide Review NO; Basophils Absolute Auto 0 /uL (0-100); Basophils Percent Auto 0.4 % (0-2); Eosinophils Absolute Auto 200 /uL (0-450); Eosinophils Percent Auto 2.3 % (2-4); Hematocrit 34.3 % (41-53); Hemoglobin 11.7 g/dL (13.5-17.5); Lymphocytes Absolute Auto 1000 /uL (1100-4500); Mean Corpuscular HGB Conc 34.1 % (30-36); Mean Corpuscular Hemoglobin 29.3 PG (26-34); Monocytes Absolute Auto 600 /uL (0-900); Monocytes Percent Auto 6.1 % (3-14); Neutrophils Absolute Auto 7900 /uL (1500-7000); Neutrophils Percent Auto 81.2 % (50-75); Platelet Count 159 X10^3/uL (150-400); Red Blood Cell Count 3.99 X10^6/uL (4.5-5.9); Red Cell Distribution Width 13.6 % (11.6-14.8); White Blood Cell Count 9.7 X10^3/uL (4.5-11.0)
[2021-06-03 05:57] LABS: Alanine Aminotransferase 21 IU/L (<50); Albumin Globulin Ratio 1.2 (1.0-2.8); Alkaline Phosphatase 109 U/L (38-126); Aspartate Aminotransferase 48 IU/L (17-59); BUN Creatinine Ratio 13.6 (6-22); Bilirubin Total 0.6 mg/dL (0.2-1.3); Blood Urea Nitrogen 12 mg/dL (9-20); Calcium 8.6 mg/dL (8.4-10.2); Carbon Dioxide 25 mmol/L (22-32); Chloride 106 mmol/L (98-107); Estimated Glomerular Filt Rate > 60.0 mL/min (>60); Globulin 2.5 g/dL (1.7-4.1); Glucose 104 mg/dL (80-110); HEMOLYSIS 26 (0-50); Potassium 4.7 mmol/L (3.4-5.1); Sodium 134 mmol/L (137-145); Total Protein 5.5 g/dL (6.3-8.2)
[2021-06-03 06:12] LABS: Procalcitonin 4.15 ng/mL (<0.5)
[2021-06-03] MEDS: GABAPENTIN 300 MG CAPSULE PO ×2 (08:58→20:55)
[2021-06-03] MEDS: ENOXAPARIN 40 MG/0.4 ML SYRINGE SUBCUT (08:58)
[2021-06-03] MEDS: HYDROCODONE/ACET 5/325 TABLET 1 TAB PO ×3 (09:10→20:55)
--- NOTE | 2021-06-03 12:23 | PM.PNPO.1 ---
Subjective Subjective Interval history: Patient doing okay. Seems comfortable. Sitting up talking with his who was visiting. Exam Vital Signs (past 8 hours): - 06/03/21 05:00 06/03/21 07:55 06/03/21 11:30 Temperature 98.6 F 98.7 F 98.7 F Pulse Rate 65 72 71 Respiratory Rate 18 18 18 Blood Pressure 148/86 H 165/81 H 176/90 H Pulse Oximetry 97 98 96 Oxygen Delivery Method Room Air Oxygen Flow Rate 0 Narrative Exam Narrative: Lungs are clear to auscultation. Good effort. Heart regular rate and rhythm without murmur gallop. Abdomen her wound VAC is in place. Ostomy is edematous and pink. Bag was apparently does clean but he the patient states that the output from the ostomy did not exactly look like stool. Objective Labs Result Diagrams: 06/03/21 04:50 06/03/21 04:50 Labs: Laboratory Results - last 24 hr 06/03/21 06/03/21 04:50 04:50 WBC 9.7 RBC 3.99 L Hgb 11.7 L Hct 34.3 L MCV 86.0 MCH 29.3 MCHC 34.1 RDW 13.6 Plt Count 159 Neut % (Auto) 81.2 H Lymph % (Auto) 10.0 L [place] % (Auto) 6.1 Eos % (Auto) 2.3 Baso % (Auto) 0.4 Neut # (Auto) 7900 H Lymph # (Auto) 1000 L [place] # (Auto) 600 Eos # (Auto) 200 Baso # (Auto) 0 Sodium 134 L Potassium 4.7 D Chloride 106 Carbon Dioxide 25 BUN 12 Creatinine 0.88 Estimated GFR > 60.0 BUN/Creatinine Ratio 13.6 Glucose 104 Calcium 8.6 Magnesium 2.0 Total Bilirubin 0.6 AST 48 ALT 21 Alkaline Phosphatase 109 Total Protein 5.5 L Albumin 3.0 L Globulin 2.5 Albumin/Globulin Ratio 1.2 Procalcitonin 4.15 H [facility] Medical History (Updated 06/02/21 @ 07:34 by Bala Rose MD) Hypertension Hypothyroidism Trauma of urethra Social History household members: spouse Smoking Status: Current every day smoker alcohol intake: never Assessment & Plan Post-op Postoperative Procedures: Procedures Operation Date: 06/01/21 07:15 Actual Procedure Side Surgeon p Exploratory Laparotomy, Sigmoid Colectomy, Abdominal Washout, Colostomy Not Applicable Bala Rose MD Postoperative status narrative: Patient is doing well. Little distended so I told him to slow down on taking p.o. liquids. I am not sure ostomy is actually working yet. Postoperative plan narrative: Continue IV antibiotics. Added his oral medications. Quality VTE Deep Vein Thrombosis/Pulmonary Embolism Present on Admission: No
[2021-06-03] MEDS: TAMSULOSIN 0.4 MG CAPSULE PO (13:33)
[2021-06-03] MEDS: lisinopriL 20 MG TABLET PO (13:33)
[2021-06-03] MEDS: hydroCHLOROthiazide 25 MG TABLET PO (13:33)
[2021-06-03 16:45] LABS: Acinetobacter baumannii Not Detected (Not Detect); Candida albicans Not Detected (Not Detect); Candida glabrata Not Detected (Not Detect); Candida krusei Not Detected (Not Detect); Candida parapsilosis Not Detected (Not Detect); Candida tropicalis Not Detected (Not Detect); E. coli Not Detected (Not Detect); Enterobacter cloacae complex Not Detected (Not Detect); Enterobacteriaceae species Not Detected (Not Detect); Enterococcus species Not Detected (Not Detect); Haemophilus influenzae Not Detected (Not Detect); Listeria monocytogenes Not Detected (Not Detect); Neisseria meningitidis Not Detected (Not Detect); Proteus species Not Detected (Not Detect); Pseudomonas aeruginosa Not Detected (Not Detect); Serratia marcescens Not Detected (Not Detect); Staphylococcus species Not Detected (Not Detect); Streptococcus agalactiae (Gr B Not Detected (Not Detect); Streptococcus pneumonia Not Detected (Not Detect); Streptococcus pyogenes (Gr A) Not Detected (Not Detect); Streptococcus species Not Detected (Not Detect)
[2021-06-03] MEDS: HYDRALAZINE 20 MG/ML VIAL 5 MG IV (18:39)
--- NOTE | 2021-06-03 18:54 | PC.NURSE ---
Pt started having brown liquid output into colostomy bag today. continued with high blood pressures with sbp maintaining in the 170's. Dr Hinson notified and Hydralazine 5 mg IV given at 1840.Will continue to monitor.
[2021-06-04] VITALS (9 sets, daily range): BP systolic 128–168; BP diastolic 80–109; PULSE 63–85; RESP 18–20; TEMP 36.4–37.7; O2SAT 93–98
--- NOTE | 2021-06-04 00:25 | PC.NURSE ---
s/p perforated sigmoid colon w/ colostomy POD#3 patient is a/o, voices needs. pleasant and talkative. 1pa cares and bed mobility. able to assist w/ moving around in bed, declined SCD's/. reports 5/10 abd pain (w/ movement) at HS, one norco given w/ good effect. declined offer of ice pack to surgical incisions. patient reports the air in my abdomen is what is uncomfortable, not the incisions. HOLLOCK MAKER reports a large amount of gas expelled from the colostomy bag. 180 cc of liquid brown stool collected from colostomy at HS. incisions are covered, shadow drainage on midline near sternum. drainage is dry and appears to be from earlier in the day. continues w/ Torsten drain, currently sero-sang drainage noted to be in the bulb, and also the BRODY drain insertion site located near the sternum. patient reports feeling gas bubbles on the right side of his abd. hernandez catheter is draining large amounts of yellow urine to gravity. skin is cool and dry, cheeks are flushed, remains afebrile. tolerating clears, may advance as tolerated. declined offer of jello at HS. D51/2NS w/ [id number]+ at 125/hour to RPIV. bp on Day shift was 170/80. for PM/NOC: 155/83, then 128/80. intermittent IV abx, and IVF. pulse check w/ pulse oximeter measured 70, manual check via radial pulse was 60.
[2021-06-04] MEDS: PIPERACILLIN/TAZO 3.375 GM in SODIUM CHLORIDE 0.9% 100 ML 25 ML IV ×3 (01:42→20:29)
[2021-06-04] MEDS: DEXTROSE 5%-0.45NS W/KCL 40MEQ 1,000 ML 125 MEQ IV ×2 (05:47→15:44)
[2021-06-04] MEDS: HYDROCODONE/ACET 5/325 TABLET 1 TAB PO ×2 (06:37→20:33)
[2021-06-04] MEDS: LEVOTHYROXINE 50 MCG TABLET PO (06:37)
[2021-06-04] MEDS: hydroCHLOROthiazide 25 MG TABLET PO (08:55)
[2021-06-04] MEDS: GABAPENTIN 300 MG CAPSULE PO ×2 (09:01→20:30)
[2021-06-04] MEDS: ENOXAPARIN 40 MG/0.4 ML SYRINGE SUBCUT (09:01)
[2021-06-04] MEDS: lisinopriL 20 MG TABLET PO ×2 (09:02→13:51)
[2021-06-04] MEDS: TAMSULOSIN 0.4 MG CAPSULE PO (09:02)
--- NOTE | 2021-06-04 10:55 | PC.NURSE ---
This CERTIFIED MARINE MECHANIC helped patient ambulate up to sink to brush teeth with FWW. He was steady on his feet, wearing his no-skid slippers and required no assistance. Afterward, he requested to sit in chair. Patient asks if he can occasionally stand and take a few steps then sit back in chair. This CERTIFIED MARINE MECHANIC asked RN Curt who said yes this is OK to do. Notified patient. Call light is within reach.
--- NOTE | 2021-06-04 11:05 | DI.RAD.S_ITS ---
PROCEDURE: XR ACUTE ABDOMEN SERIES INDICATIONS: abd distention post op TECHNIQUE: One view chest and two views of the abdomen were acquired. COMPARISON: Merged With [facility], CR, XR ACUTE ABDOMEN SERIES, 05/31/2021, 23:45. FINDINGS: Surgical changes and devices: Postsurgical changes are seen in lower abdomen with midline skin kiah and a right-sided surgical drain. Chest: Lungs are clear. Heart size is normal. No pleural effusions. Possible free air under right hemidiaphragm is noted. Abdomen: Moderate air distended small bowel and colon loops are noted throughout the abdomen with a few air-fluid levels. No peritoneal free air. No suspicious calcifications. Visualized solid organ contours appear normal. Bones: No suspicious bony lesions. IMPRESSION: Finding is most suggestive of postop ileus. Suggestion of trace amount of free air under right hemidiaphragm which likely represent postsurgical changes. Dictated by: Tommy Wren M.D. on 06/04/2021 at 11:38 Approved by: Tommy Wren M.D. on 06/04/2021 at 11:39
--- NOTE | 2021-06-04 12:47 | PC.NURSE ---
Addendum entered by Curt Sales R.N. 06/04/21 18:28: Pt up with QUALITY COMPLIANCE CONSULTANT. Up in chair good portion of the day. gait steady. Taking some clear liquid. some blotting, But otherwise johny Cl liq. Original Note: Pt alert and oriented, makes needs known articulately. Surgical site intact. Drains patent. Has Hernandez, Picco, and Torsten drain. Up to chair this morning and down to X-ray per Dr's orders. Hernandez to remain in per Dr. Hinson. Had long discussion about Pt's concerns. Reassured Pt he was progressing well and that not having the hernandez or other drains out was not uncommon. Pt requires reassurance that he is doing well. Pt continues to all that is asked of him.
--- NOTE | 2021-06-04 13:07 | PM.PNPO.1 ---
Subjective Subjective Interval history: Patient feeling pretty well. Wondering about his Monroe. No cough. Putting gas into his bag and a small amount of liquid stool. Exam Vital Signs (past 8 hours): - 06/04/21 07:20 06/04/21 09:02 06/04/21 12:20 Temperature 98.7 F 97.6 F Pulse Rate 71 71 63 Respiratory Rate 18 18 Blood Pressure 162/87 H 162/87 H 168/86 H Pulse Oximetry 93 93 Oxygen Delivery Method Room Air Oxygen Flow Rate 0 Narrative Exam Narrative: Cooperative alert sitting in a chair in no apparent distress. Lungs are clear to auscultation. Heart regular rate and rhythm without murmur gallop. Abdomen remains a little distended but soft. Ostomy is viable. Midline is intact and no cellulitis. Monroe is in place. Objective Labs Result Diagrams: 06/03/21 04:50 06/03/21 04:50 Labs: Laboratory Results - last 24 hr 06/01/21 02:11 A. baumannii (PCR) Not detected Kimberlee albicans (PCR) Not detected C. glabrata (PCR) Not detected C. krusei (PCR) Not detected C. parapsilosis (PCR) Not detected C. tropicalis (PCR) Not detected Enterobacteriac sp PCR Not detected E. cloacae complex PCR Not detected Enterococcus sp PCR Not detected E. coli (PCR) Not detected H. influenzae (PCR) Not detected Klebsiella oxytoca PCR Not detected Klebsiella pneumoniae Not detected List. monocytogenes PCR Not detected N. meningitidis (PCR) Not detected Proteus species (PCR) Not detected Serratia marcescens PCR Not detected Staphylococcus sp PCR Not detected Staph aureus (PCR) Not detected mecA-Methicil Res Gene Not Reportable Streptococcus sp PCR Not detected Group A Strep (PCR) Not detected Strep agalactiae (PCR) Not detected Strep pneumoniae (PCR) Not detected P. aeruginosa (PCR) Not detected Darlin/B-Vanco Res Genes Not Reportable KPC-Carbap Res Gene PCR Not Reportable [facility] Medical History (Updated 06/02/21 @ 07:34 by Bala Rose MD) Hypertension Hypothyroidism Trauma of urethra Social History household members: spouse Smoking Status: Current every day smoker alcohol intake: never Assessment & Plan Post-op Postoperative Procedures: Procedures Operation Date: 06/01/21 07:15 Actual Procedure Side Surgeon p Exploratory Laparotomy, Sigmoid Colectomy, Abdominal Washout, Colostomy Not Applicable Bala Rose MD Postoperative plan narrative: Patient had acute delirium in the recovery room most likely secondary to the anesthetic and other agents used during his operation. This resulted in him pulling his Monroe catheter out. Because of that trauma I will leave his Monroe in today. Ostomy is began to function. He is still somewhat distended so I am in no grigsby to advance his diet. X-rays are hopeful however. He has a fair amount of air in his small bowel but there is no particular distension. I did note a small amount of free air under the right hemidiaphragm on these plain films but that is not particularly unusual at this point. His vital signs have been acceptable except for hypertension. Will adjust his medications. Quality VTE Deep Vein Thrombosis/Pulmonary Embolism Present on Admission: No
--- NOTE | 2021-06-04 15:24 | PT.IIE ---
Current Diagnoses Perforation of intestine (nontraumatic) (06/01/21) Unspecified injury of urethra, initial encounter (06/01/21) Encounter for follow-up examination after completed treatment for conditions other than malignant neoplasm (06/01/21) Surgery Performed Operation Date: 06/01/21 07:15 Actual Procedures p Exploratory Laparotomy, Sigmoid Colectomy, Abdominal Washout, Colostomy(Not Applicable) - Bala Rose MD Medical History (Last Updated 06/01/21 @ 14:47 by Mando Raygoza MD) Hypertension Hypothyroidism Trauma of urethra Physical Therapy Inpatient Evaluation/Re-Eval M1 PT/OT-IP Prior Functional Status Start: 06/04/21 13:57 Freq: NEEDED Status: Active Protocol: Document 06/04/21 15:08 AMB (Rec: 06/04/21 15:24 AMB [id number]) Medical Review Prior Functional Status Medical History Reviewed Yes Mobility and Gait Independent with all ADLs, driving, used a SPC at times due to R hip arthritis Social History Household Members spouse Living Arrangements House Number of Floors (Floors) Two Floors Number of Stairs To Enter/Railing? 3 without railings Additional Social History Comment Doesn't need to use second floor, is at a rehab facility currently and he was working on installing railings on the stairs when he needed to come to the hospital. M2 PT-IP Current Condition Start: 06/04/21 13:57 Freq: NEEDED Status: Active Protocol: Document 06/04/21 15:08 AMB (Rec: 06/04/21 15:24 AMB [id number]) Physical Therapy Current Condition Current Condition Evaluation Date 06/04/21 Treatment Diagnosis weakness s/p colostomy Onset Date 05/31/21 M3 PT-IP Subjective Start: 06/04/21 13:57 Freq: NEEDED Status: Active Protocol: Document 06/04/21 15:08 AMB (Rec: 06/04/21 15:24 AMB [id number]) Subjective Physical Therapy Visit Type Type Initial Evaluation Visit Start Time 14:50 Visit Stop Time 15:15 Total Visit Minutes 25 Physical Therapy Visit Comments Patient Comments Elkin is sitting up in his recliner, he has some abdominal discomfort, but otherwise is doing well. M4 PT-IP Mobility and Gait Start: 06/04/21 13:57 Freq: NEEDED Status: Active Protocol: Document 06/04/21 15:08 AMB (Rec: 06/04/21 15:24 AMB [id number]) PT-Transfer Assessment Sit to and From Stand Sit to and from Stand Standby Assistance Equipment Transfer Assistive Device Front Wheeled Walker Transfers Transfer Destination Chair Transfer Technique Stand Step Pivot Transfer Ability Level of Assist Standby Assistance Comments Mobility Comments Elkin moves from sit to stand and stand to sit with SBA. Gait Assessment Gait Gait Assistance Required: Standby Assistance Distance (Feet) 200 Assistive Devices Assistive Device Front Wheeled Walker Gait Deviations General Gait Pattern Decreased Stride Length Factors Limiting Gait Function Factors Limiting Gait Function Decreased Activity Tolerance Comments Gait Comments Elkin ambulates with FWW, slowly but with good stability . Stair Climbing Assessment Evaluation Level of Assist On Stairs Standby Assistance Devices Stair Climbing Assistive Devices Left Railing,Right Railing Technique/Endurance Stair Climbing Direction Ascend and Descend Stair Climbing Technique Step Over Step Number of Steps Climbed 3 Query Text: Stair Climbing Set # Repetitions (reps) 1 Comments Stair Climbing Comments Cues to manage IV line but otherwise ascends and descend stairs well. PT-Balance Assessment Sitting Balance and Reactions Static Sitting Balance Ability Normal Dynamic Sitting Balance Ability Normal Standing Balance and Reactions Static Standing Balance Ability Good Dynamic Standing Balance Ability Good M5 PT-IP Objective Assessments Start: 06/04/21 13:57 Freq: NEEDED Status: Active Protocol: Document 06/04/21 15:08 AMB (Rec: 06/04/21 15:24 AMB [id number]) Orientation Orientation/Cognition Level of Alertness Alert Gross Range of Motion Upper Extremity ROM Assessment Within Functional Limits Lower Extremity ROM Assessment Within Functional Limits Strength Upper Extremity Strength Assessment Within Functional Limits Lower Extremity Strength Assessment Within Functional Limits M7 PT-IP Assessment and Plan Start: 06/04/21 13:57 Freq: NEEDED Status: Active Protocol: Document 06/04/21 15:08 AMB (Rec: 06/04/21 15:24 AMB [id number]) PT Summary Assessment and Plan Potential Rehabilitation Potential Excellent Status of Condition at Evaluation Stable Summary Impairments Transfers,Gait,Activity Tolerance Assessment Summary Elkin is planning to discharge home without family present due to his currently being at rehab. He was able to ambulate with FWW and ascend/descend stairs with railings with SBA. The question for the next therapy session is can he ambulate safely without FWW and ascend/ descend the stairs without using a railing. If so he would be likely be able to discharge home when medically stable. Goals Bed Mobility Goal Independent Transfer Goal Independent Gait Goal Standby Assistance Gait Distance 300 Other Goals Ascend and descend 3 stairs without a railing with SBA Days to Meet Goals 3 Frequency of Treatment Frequency Of Treatment Once a Day Treatment Plan Physical Therapy Treatment Plan Bed Mobility Training,Transfer Training,Gait Training, Therapeutic Exercise,Balance Retraining Other Recommendations and Next Treatment Bed mobility, stairs without a Focus railing, gait with SPC Recommendations To Nursing Amount of Assist Needed Standby Assistance Discharge Recommendations PT Discharge Recommendations Home Transportation Needs at Discharge Private Vehicle
--- NOTE | 2021-06-04 18:43 | PC.NURSE ---
2830- Patient requested to walk the halls. Confirmed with RN Curt that this was OK to do, and he said yes. Walked beside patient for about 10 minutes while he walked the halls. He used his cane and had non-skid slippers on. I followed with his IV pole. He was steady on his feet, alert, oriented and talkative. We returned back to his room where he sat in the recliner with call light in reach. Reminded to call for any needs. Patient verbalized understanding.
[2021-06-04] MEDS: HYDRALAZINE 20 MG/ML VIAL 5 MG IV (23:17)
[2021-06-05] VITALS: BP 158/76; PULSE 65; RESP 18; TEMP 36.6; O2SAT 95
[2021-06-05 00:41] VITALS: BP 134/75; PULSE 65
[2021-06-05] MEDS: PIPERACILLIN/TAZO 3.375 GM in SODIUM CHLORIDE 0.9% 100 ML 25 ML IV ×2 (03:19→12:11)
[2021-06-05] MEDS: DEXTROSE 5%-0.45NS W/KCL 40MEQ 1,000 ML 125 MEQ IV (03:20)
[2021-06-05 04:40] VITALS: BP 157/83; PULSE 84; RESP 16; TEMP 36.4; O2SAT 97
[2021-06-05] MEDS: LEVOTHYROXINE 50 MCG TABLET PO (05:17)
[2021-06-05] MEDS: TAMSULOSIN 0.4 MG CAPSULE PO (08:48)
[2021-06-05] MEDS: HYDROCODONE/ACET 5/325 TABLET 1 TAB PO (08:48)
[2021-06-05] MEDS: ENOXAPARIN 40 MG/0.4 ML SYRINGE SUBCUT (08:48)
[2021-06-05] MEDS: hydroCHLOROthiazide 25 MG TABLET PO (08:48)
[2021-06-05] MEDS: lisinopriL 20 MG TABLET 40 MG PO (08:48)
[2021-06-05] MEDS: GABAPENTIN 300 MG CAPSULE PO ×2 (08:49→21:01)
[2021-06-05 12:00] VITALS: BP 147/73; PULSE 100; RESP 19; TEMP 36.9; O2SAT 98
--- NOTE | 2021-06-05 12:30 | PT.IPTN ---
Current Diagnoses Perforation of intestine (nontraumatic) (06/01/21) Unspecified injury of urethra, initial encounter (06/01/21) Encounter for follow-up examination after completed treatment for conditions other than malignant neoplasm (06/01/21) Surgery Performed Operation Date: 06/01/21 07:15 Actual Procedures p Exploratory Laparotomy, Sigmoid Colectomy, Abdominal Washout, Colostomy(Not Applicable) - Bala Rose MD Physical Therapy Treatment Note M2 PT-IP Current Condition Start: 06/04/21 13:57 Freq: NEEDED Status: Active Protocol: Document 06/04/21 15:08 AMB (Rec: 06/04/21 15:24 AMB [id number]) Physical Therapy Current Condition Current Condition Evaluation Date 06/04/21 Treatment Diagnosis weakness s/p colostomy Onset Date 05/31/21 M3 PT-IP Subjective Start: 06/04/21 13:57 Freq: NEEDED Status: Active Protocol: Document 06/05/21 12:02 KS (Rec: 06/05/21 13:26 KS [id number]) Subjective Physical Therapy Visit Type Type Treatment Note Visit Start Time 12:02 Visit Stop Time 12:30 Total Visit Minutes 28 Number of CUSTODIAL MAINTENANCE WORKER Visits 1 Physical Therapy Visit Comments Patient Comments Pt agreeable to work w/ therapy. M4 PT-IP Mobility and Gait Start: 06/04/21 13:57 Freq: NEEDED Status: Active Protocol: Document 06/05/21 12:02 KS (Rec: 06/05/21 13:26 KS [id number]) PT-Transfer Assessment Sit to and From Stand Sit to and from Stand Independent Equipment Transfer Assistive Device None,Gait Belt,Straight Cane Transfers Transfer Destination Chair Transfer Technique Pt ambulated w/ SPC and no AD. Transfer Ability Level of Assist Independent,Standby Assistance Comments Mobility Comments Pt stood independently w/ therapy entered room. He then ambulated ~700 [address] in hallway w / SBA and SPC, but only used for 2 short bouts. He stated he usually ambulates w/o AD but sometimes usue SPC when arthritic hip is painful. He then completed 12 steps w/ no rails but w/ SPC SBA. He is safe to return home when medically stable. Gait Assessment Gait Gait Assistance Required: Standby Assistance Distance (Feet) 700 Assistive Devices Assistive Device None,Gait Belt,Straight Cane Comments Gait Comments Pt ambulated ~700 ft SBA mostly w/o AD, but 2x short use of SPC due to some hip pain. He ambulated quickly w/ good gait. Stair Climbing Assessment Evaluation Level of Assist On Stairs Standby Assistance Devices Stair Climbing Assistive Devices None,Straight Cane Technique/Endurance Stair Climbing Direction Ascend and Descend Stair Climbing Technique Step Over Step,Step to Step Number of Steps Climbed 3 Stair Climbing Set # Repetitions (reps) 4 Comments Stair Climbing Comments Pt ascended/descended 12 total steps SBA using both step over step and step to step pattern and SPC when descending for balance. PT-Balance Assessment Sitting Balance and Reactions Static Sitting Balance Ability Normal Dynamic Sitting Balance Ability Normal Standing Balance and Reactions Static Standing Balance Ability Good Dynamic Standing Balance Ability Good M5 PT-IP Objective Assessments Start: 06/04/21 13:57 Freq: NEEDED Status: Active Protocol: Document 06/04/21 15:08 AMB (Rec: 06/04/21 15:24 AMB [id number]) Orientation Orientation/Cognition Level of Alertness Alert Gross Range of Motion Upper Extremity ROM Assessment Within Functional Limits Lower Extremity ROM Assessment Within Functional Limits Strength Upper Extremity Strength Assessment Within Functional Limits Lower Extremity Strength Assessment Within Functional Limits M6 PT-IP Treatment Start: 06/04/21 13:57 Freq: NEEDED Status: Active Protocol: Document 06/05/21 13:26 KS (Rec: 06/05/21 13:26 KS [id number]) Physical Therapy Treatment Education Education Provided Safety M7 PT-IP Assessment and Plan Start: 06/04/21 13:57 Freq: NEEDED Status: Active Protocol: Document 06/05/21 12:02 KS (Rec: 06/05/21 13:26 KS [id number]) PT Summary Assessment and Plan Potential Rehabilitation Potential Excellent Status of Condition at Evaluation Stable Summary Impairments Transfers,Gait,Activity Tolerance Progress Towards Goals Progressing Toward Goals Assessment Summary Pt independent for most mobility, SBA for ambulation and stairs. He ambulated ~700 ft mostly w/o AD but minimal use of SPC and ascended/ descended 12 steps w/ SPC descending to remain balanced. He feels safe to d/c home and may go home when medically stable. He has met his therapy goals. Goals Bed Mobility Goal Independent Transfer Goal Independent Gait Goal Standby Assistance Gait Distance 300 Other Goals Ascend and descend 3 stairs without a railing with SBA Days to Meet Goals 3 Frequency of Treatment Frequency Of Treatment Once a Day Treatment Plan Physical Therapy Treatment Plan Bed Mobility Training,Transfer Training,Gait Training, Therapeutic Exercise,Balance Retraining Other Recommendations and Next Treatment Bed mobility, stairs without a Focus railing, gait with SPC Recommendations To Nursing Amount of Assist Needed Standby Assistance Discharge Recommendations PT Discharge Recommendations Home Transportation Needs at Discharge Private Vehicle
--- NOTE | 2021-06-05 13:14 | PM.PN.1 ---
Subjective Subjective Date Patient Seen: 06/05/21 Time Patient Seen: 13:17 Interval history: Elkin is feeling well. He has done well with clear liquid diet. He is starting to have some output through his colostomy. Exam Vital Signs (past 8 hours): Oxygen Delivery Method Room Air Oxygen Flow Rate 0 Narrative Exam Narrative: Abdomen is soft, appropriately tender Colostomy is viable and well perfused with some stool output. Drain output is serous Objective Labs Result Diagrams: 06/03/21 04:50 06/03/21 04:50 [facility] Medical History (Updated 06/02/21 @ 07:34 by Bala Rose MD) Hypertension Hypothyroidism Trauma of urethra Social History household members: spouse Smoking Status: Current every day smoker alcohol intake: never Assessment & Plan Assessment and plan (1) Postoperative examination: Status: Acute Plan Doing well now postop day 4 and starting to have some return of bowel function. Will advance diet to regular Will DC Monroe He would like Xanax for anxiety and a Pneumovax if available. Time Spent With Patient Critical Care time: I spent a total of [] minutes of critical care time on this patient's care today; this time is exclusive of procedural time. Quality VTE Deep Vein Thrombosis/Pulmonary Embolism Present on Admission: No
--- NOTE | 2021-06-05 15:11 | CM.DPNOTE ---
DCP Note Met w/patient this afternoon to review DCP. Spouse Becky (recently DC from to [facility] after a stroke) was in the room visiting w/patient. Patient and spouse in good spirits, patient has been walking the hallways when he can, and explains he has not gotten extensive teaching yet on ostomy care but expects he will receive this w/in 24 hrs since surgeon might DC him home as soon as tomorrow (?) Patient plans to DC home when medically cleared; transport likely via friend Rhianna. Patient plans to manage his ostomy on his own w/assist from HH RN. Placed call to [facility], spoke w/ Cynthia. She did not receive this HH referral. Reviewed notes to find SW did discuss referral w/Kevin 06.02.21 however actual faxed referral was sent to [facility]. Faxed referral to [facility] this afternoon. Unfortunately, [place] will not have a HH RN available until the end of next week, and there is no other agency that provides nursing on [facility]. Patient may be able to get transport via friends vs [employer] taxi into the surgeon's office and/or wound care for assist w/ostomy change (?) Still need surgeon's signature on F2F CM team following closely for coordination of DCP. Discussion and coordination w/surgeon would be helpful JW
[2021-06-05] MEDS: [UNRECOGNIZED DRUG - OTHER] IM (16:08)
[2021-06-05 16:55] VITALS: BP 143/88; PULSE 107; RESP 20; TEMP 37.2; O2SAT 99
--- NOTE | 2021-06-05 19:46 | PC.NURSE ---
Dr. Rose here. He spoke with the patient for a long time. Increased diet. Monroe d/c intact, no void yet, pt doesn't think it will be a problem. While Dr Rose was here he removed pt's drains as well. Pt is resting quietly at this time. Information about colostomy and diet were printed up and Camille HENDRICKS will give them to pt.
[2021-06-05 20:12] VITALS: BP 124/72; PULSE 91; RESP 16; TEMP 36.2; O2SAT 96
--- NOTE | 2021-06-06 00:28 | PC.NURSE ---
It was noted that patient removed cody drain from dressing, he stated it was sometime this afternoon. Also, his colostomy was loose and draining out the side onto the cody dressing. Notified Dr. Rose and received order to remove midline dressing and leave KATHIE and ok to cover kiah with ostomy wafer if needed. [place] are clean, dry and intact. No drainage or s/s of infection noted.
[2021-06-06 05:10] VITALS: BP 134/86; PULSE 68; RESP 16; TEMP 35.8; O2SAT 96
[2021-06-06] MEDS: LEVOTHYROXINE 50 MCG TABLET PO (05:26)
[2021-06-06 09:06] VITALS: BP 128/81; PULSE 76; RESP 16; TEMP 37; O2SAT 99
[2021-06-06 09:07] VITALS: BP 128/81; PULSE 77
[2021-06-06] MEDS: TAMSULOSIN 0.4 MG CAPSULE PO (09:07)
[2021-06-06] MEDS: ENOXAPARIN 40 MG/0.4 ML SYRINGE SUBCUT (09:07)
[2021-06-06] MEDS: hydroCHLOROthiazide 25 MG TABLET PO (09:07)
[2021-06-06] MEDS: GABAPENTIN 300 MG CAPSULE PO (09:07)
[2021-06-06] MEDS: lisinopriL 20 MG TABLET 40 MG PO (09:07)
[2021-06-06] MEDS: HYDROCODONE/ACET 5/325 TABLET 1 TAB PO (09:18)
--- NOTE | 2021-06-06 11:07 | PT-IP ANOTE ---
Per VOCATIONAL TRAINING DIRECTOR note from yesterday patient has met all PT goals and is safe and independent with mobility, ambulated 700 ft yesterday. Confirmed with RN patient continues to do well with mobility. Patient is discharged from inpatient PT.
--- NOTE | 2021-06-06 14:19 | P.DS_ITS ---
History of Present Illness History of Present Illness Chief complaint: Abdominal pain Narrative: Elkin is a 75-year-old man who presents today to the emergency department overnight complaining of several hours of severe abdominal pain. He had a bowel movement yesterday morning which was unremarkable. He has been constipated for several days. He did take 1 narcotic pain pill for hip pain several days ago. He is not normally constipated. He had a colonoscopy many years ago but he is not sure exactly when. Discharge Providers Provider Date of admission: 06/01/21 02:17 Discharge Date: 06/06/21 Primary care physician: Jayson Mcmullen MD Consults: 06/01/21 07:07 Consult to Respiratory Therapy Evaluate & Treat Comment: Physician Instructions: Evaluate and treat 06/01/21 10:54 Consult to Discharge Planning Routine Comment: 06/04/21 13:06 Consult to Physical Therapy Evaluate & Treat Comment: Assist in ambulation Physician Instructions: Evaluate and Treat 06/06/21 13:29 Consult to Home Health Routine Comment: colostomy Reason For Exam: New colostomy, please help with appliance changes Discharge provider: Bala Rose MD Summary Hospital Course Discharge Diagnosis: Perforated sigmoid colon Hospital Course: The patient underwent emergency sigmoid colectomy for a perforated sigmoid colon on 06/01/21. He had a large perforation with significant collection of stool within the sigmoid mesentery. He underwent a sigmoid colectomy with end ileostomy. He did well after surgery and was able to restart a diet. He had colostomy function by post operative day 4 and had significant stool output into day 5 requiring several appliance changes. He was discharged home on post op day 5. Home health was ordered to assist with initial colostomy care at home. Status at Discharge Cognitive/behavioral status at discharge: oriented Functional status at discharge: independent ambulation Time Spent with Patient Time spent: Greater than 30 minutes Exam Vital Signs (past 8 hours): - 06/06/21 09:06 06/06/21 09:07 Temperature 98.6 F Pulse Rate 76 77 Respiratory Rate 16 Blood Pressure 128/81 128/81 Pulse Oximetry 99 Oxygen Delivery Method Room Air Oxygen Flow Rate 0 Narrative Exam Narrative: Abdomen is less distended Colostomy is well perfused and functional Midline wound is healing well Objective Labs Result Diagrams: 06/03/21 04:50 06/03/21 04:50 [facility] Medical History (Updated 06/02/21 @ 07:34 by Bala Rose MD) Hypertension Hypothyroidism Trauma of urethra Social History household members: spouse Smoking Status: Current every day smoker alcohol intake: never Discharge Plan Discharge Plan Patient Disposition: Home Discharge orders & Medications Prescriptions: New alprazolam 0.5 mg tablet 0.5 mg PO BID PRN (Reason: anxiety) Qty: 10 0RF oxycodone 5 mg tablet 5 mg PO Q8H PRN (Reason: pain) Qty: 15 0RF Continued benazepril-hydrochlorothiazide 20-25 mg tablet See Rx Instructions .ROUTE .COMPLEX Qty: 60 0RF Dose Instruction: TAKE 1 TABLET BY MOUTH DAILY Rx Instructions: TAKE 1 TABLET BY MOUTH DAILY levothyroxine 50 mcg tablet 50 mcg PO DAILY Qty: 90 2RF Rx Instructions: establishing appt w [facility] 3/4 tamsulosin [Flomax] 0.4 mg capsule 0.4 mg PO QDAY Qty: 90 3RF loratadine [Claritin] 10 mg tablet 10 mg PO DAILY PRN (Reason: Allergy Symptoms) 0RF Follow up/Referrals: Jayson Mcmullen MD [Primary Care Provider] - Diet/Activity/Treatments Diet: Regular Activity: No restrictions Skin/Wound/Dressing Care Skin care: Leave midline incision open to air. Ok to shower Report to your healthcare provider any signs of infection, such as:: chills, fever, night sweats, increased pain, unusual drainage and unusual redness Visit Report/Discharge Packet Instructions: How to Care for Your Colostomy or Ileostomy, [facility]: Wound Care Discharge Data Primary Care Provider: Jayson Mcmullen Quality VTE Deep Vein Thrombosis/Pulmonary Embolism Present on Admission: No
--- NOTE | 2021-06-06 15:29 | CM.DPC ---
DCP Discharge Home with HH Per Surgeon, pt is medically stable to d/c home with RN and outpt follow up at [facility]. JUANA met bedside with pt and provided his Medicare Rights and a copy for home and he acknowledges understanding and states he is agreeable with d/c home today and friend Rhianna to provide transport home and also friend of the family is an Ostomy/sizing machine tender and will be available to answer patient's questions or concerns and pt feels very supported by this plan. JUANA provided the Critical access hospital brochure and updated him that they likely do not have openings to come see him at home for 4 or so days and pt is agreeable with this and states then it will give me a chance to get settled back in at home. JUANA updated RN and pt will call eve [place] for orange picker at ER entrance when pt has received his d/c pwk and his supplies for home. JUANA called and left msg for w/e [facility] RN and faxed Critical access hospital pt's F2F, d/c summ, and MD orders. Plan: Patient to d/c home via friend BLANKA and new Critical access hospital referral and outpt f/u with Surgeon. ARISTEO Daly
--- NOTE | 2021-06-06 15:45 | PC.NURSE ---
Discharge Note Patient A&O, VSS, RA, no complaints of pain/discomfort. Ostomy appliance and bag changed at bedside by Dr Rose and this RN. Extensive ostomy education given to patient by this RN. Multiple ostomy supplies given to patient. Home health to follow-up with patient tomorrow. Discharge information reviewed with patient all questions/concerns addressed. Patient reminded to order picker/assembler prescriptions at preferred pharmacy. Medication retrieved from pharmacy. All belongings packed and given to patient. Patient taken down via wheelchair to POV.
== END 2021-06-06 15:30 | disposition home health service (06) | DRG 329 ==
LOC: ED 06-01 00:40 → AC 06-01 02:18 → ICU 06-01 09:09 → AC 06-01 10:07
PROVIDERS: Specialist; Admitting Provider Surgery; Emergency Provider Emergency Medicine; Family Provider Family Medicine; PCP Family Medicine; Referring Provider Emergency Medicine; Visit Provider Surgery
PROC: 0DTN0ZZ Resection of Sigmoid Colon, Open Approach (ICD-10-PCS; CPT 49000; principal; 2021-06-01 07:15)
DX: K63.1 Perforation of intestine (nontraumatic) (principal); K65.1 Peritoneal abscess; F19.921 Other psychoactive substance use, unspecified with intoxication with delirium; R18.8 Other ascites; T88.59XA Other complications of anesthesia, initial encounter; F17.200 Nicotine dependence, unspecified, uncomplicated; I10 Essential (primary) hypertension; E03.9 Hypothyroidism, unspecified; F41.9 Anxiety disorder, unspecified; Z20.822 Contact with and (suspected) exposure to COVID-19; X58.XXXA Exposure to other specified factors, initial encounter; Z23 Encounter for immunization
CPT/HCPCS: 36415; 44143; 74022; 74177; 80048; 80053; 83605; 83690; 83735; 84145; 85025; 87040; 87077; 87150; 87205; 87635; 90471; 90662; 90732; 93005; 96361; 96365; 96375; 97116; 97161; 97530; 99223; 99232; 99285; 99406; C9803; C9290; J0131; J0330; J0360; J1100; J1170; J1630; J1650; J1885; J2405; J2543; J2704; Q9967

== ENCOUNTER → 2021-06-17 14:44 | Outpatient (CLI) | payer OTHER, SELFPAY ==
[2021-06-01 03:06] VITALS: BMI 24.2
[2021-06-17 15:34] LABS: Add Manual Diff / Slide Review NO; Basophils Absolute Auto 100 /uL (0-100); Basophils Percent Auto 0.7 % (0-2); Eosinophils Absolute Auto 100 /uL (0-450); Hematocrit 34.9 % (41-53); Hemoglobin 12.1 g/dL (13.5-17.5); Lymphocytes Absolute Auto 1300 /uL (1100-4500); Lymphocytes Percent Auto 12.9 % (25-40); Mean Corpuscular HGB Conc 34.8 % (30-36); Mean Corpuscular Hemoglobin 29.1 PG (26-34); Mean Corpuscular Volume 83.7 fL (80-100); Monocytes Absolute Auto 1100 /uL (0-900); Monocytes Percent Auto 11.3 % (3-14); Neutrophils Absolute Auto 7500 /uL (1500-7000); Neutrophils Percent Auto 74.1 % (50-75); Platelet Count 514 X10^3/uL (150-400); Red Blood Cell Count 4.17 X10^6/uL (4.5-5.9); Red Cell Distribution Width 13.4 % (11.6-14.8); White Blood Cell Count 10.1 X10^3/uL (4.5-11.0)
[2021-06-17 15:46] LABS: Alanine Aminotransferase 46 IU/L (<50); Albumin 3.8 g/dL (3.5-5.0); Albumin Globulin Ratio 1.5 (1.0-2.8); Alkaline Phosphatase 88 U/L (38-126); Aspartate Aminotransferase 46 IU/L (17-59); Bilirubin Total 0.5 mg/dL (0.2-1.3); Blood Urea Nitrogen 13 mg/dL (9-20); Calcium 10.1 mg/dL (8.4-10.2); Carbon Dioxide 33 mmol/L (22-32); Chloride 91 mmol/L (98-107); Cholesterol 133 mg/dL (140-199); Estimated Glomerular Filt Rate > 60.0 mL/min (>60); Globulin 2.5 g/dL (1.7-4.1); Glucose 116 mg/dL (80-110); HDL Cholesterol 31 mg/dL (40-60); HEMOLYSIS < 15 (0-50); LDL Cholesterol Calculated 77 mg/dL (<100); Sodium 132 mmol/L (137-145); Total Protein 6.3 g/dL (6.3-8.2); Triglycerides 124 mg/dL (35-150)
== END ==
PROVIDERS: Family Provider Family Medicine; PCP Family Medicine; Referring Provider Surgery; Visit Provider Surgery
DX: Z93.3 Colostomy status (principal)
CPT/HCPCS: 36415; 80053; 80061; 85025

== ENCOUNTER → 2021-07-27 11:50 | Outpatient (CLI) | payer OTHER, SELFPAY ==
[2021-06-01 03:06] VITALS: BMI 24.2
--- NOTE | 2021-07-27 11:52 | DI.RAD.S_ITS ---
PROCEDURE: XR HIP W PEL IF DONE RT 2V INDICATIONS: RIGHT HIP PAIN TECHNIQUE: AP pelvis with lateral view(s) of the right hip(s). COMPARISON: None. FINDINGS: Bones: No fractures or dislocations. Pelvic ring appears intact. No suspicious bony lesions. Moderate bilateral degenerative hip joint space narrowing is present without erosions. Subchondral sclerosis is present. Lower lumbar degenerative changes present. Soft tissues: The visualized bowel gas pattern is normal. No suspicious soft tissue calcifications. IMPRESSION: Bilateral arthritic changes as above. Dictated by: Yohana Herzog M.D. on 07/27/2021 at 17:34 Approved by: Yohana Herzog M.D. on 07/27/2021 at 17:35
[2021-07-27 12:22] LABS: Add Manual Diff / Slide Review NO; Basophils Absolute Auto 100 /uL (0-100); Basophils Percent Auto 1.2 % (0-2); Eosinophils Absolute Auto 100 /uL (0-450); Eosinophils Percent Auto 0.8 % (2-4); Hematocrit 32.6 % (41-53); Lymphocytes Absolute Auto 1400 /uL (1100-4500); Lymphocytes Percent Auto 15.2 % (25-40); Mean Corpuscular HGB Conc 33.8 % (30-36); Mean Corpuscular Hemoglobin 27.3 PG (26-34); Mean Corpuscular Volume 80.8 fL (80-100); Monocytes Absolute Auto 500 /uL (0-900); Monocytes Percent Auto 5.8 % (3-14); Neutrophils Absolute Auto 7100 /uL (1500-7000); Platelet Count 403 X10^3/uL (150-400); Red Blood Cell Count 4.03 X10^6/uL (4.5-5.9); Red Cell Distribution Width 16.3 % (11.6-14.8); White Blood Cell Count 9.2 X10^3/uL (4.5-11.0)
[2021-07-27 12:34] LABS: HEMOLYSIS < 15 (0-50); Iron 67 ug/dL (49-181)
[2021-07-27 12:46] LABS: Percent Iron Saturation 22 % (20-50); Total Iron Binding Capacity 304 ug/dL (261-462); Transferrin 237 mg/dL (206-381)
[2021-07-27 13:06] LABS: TSH w/ Reflex to FT4 1.34 uIU/mL (0.47-4.68)
[2021-07-27 13:12] LABS: Ferritin 104 ng/mL (18-464)
== END ==
PROVIDERS: Family Medicine; Family Provider Family Medicine; PCP Family Medicine; Referring Provider Family Medicine; Visit Provider Family Medicine
DX: D64.9 Anemia, unspecified (principal); E03.9 Hypothyroidism, unspecified; I10 Essential (primary) hypertension; M25.551 Pain in right hip
CPT/HCPCS: 36415; 73502; 82728; 83540; 83550; 84443; 85025

== ENCOUNTER → 2021-11-29 09:12 | Outpatient (CLI) | payer OTHER, SELFPAY ==
[2021-06-01 03:06] VITALS: BMI 24.2
[2021-11-29 11:55] LABS: COVID19 -Nasal RAPID Negative (Negative)
== END ==
PROVIDERS: Family Provider Family Medicine; PCP Family Medicine; Visit Provider Surgery
DX: Z20.822 Contact with and (suspected) exposure to COVID-19 (principal); Z01.812 Encounter for preprocedural laboratory examination
CPT/HCPCS: 87635

== ENCOUNTER 2021-11-30 10:22 | Day surgery (SDC) | payer OTHER, SELFPAY ==
[2021-06-01 03:06] VITALS: BMI 24.2
[2021-11-30 10:56] VITALS: BP 192/99; PULSE 65; RESP 12; TEMP 36.6; O2SAT 99; BMI 22.8
[2021-11-30] MEDS: LACTATED RINGERS 1,000 ML 42 ML IV (11:15)
--- NOTE | 2021-11-30 12:14 | PM.HP.1 ---
History of Present Illness History of Present Illness Date Patient Seen: 11/30/21 Time Patient Seen: 12:14 Chief complaint: SCREENING COLONOSCOPY Narrative: Elkin is here for his colonoscopy prior to his colostomy reversal tomorrow. Patient History Medical History Hypertension Hypothyroidism Trauma of urethra Surgical History Hx of exploratory laparotomy (06/01/21) Family & Social History Social History: household members spouse Tobacco & Substance use: Tobacco type cigarettes Smoking Status Former smoker alcohol intake never Substance Use Type marijuana Meds Home Medications and Allergies Home Medications Medication Instructions Recorded Confirmed Type loratadine 10 mg tablet (Claritin) 10 mg PO DAILY PRN 06/01/21 11/30/21 History benazepril 20 See Rx Instructions .ROUTE 06/28/21 11/30/21 Rx mg-hydrochlorothiazide 25 mg tablet .COMPLEX #60 tab levothyroxine 50 mcg tablet 50 mcg PO DAILY #90 tab 06/28/21 11/30/21 Rx hydrocodone 5 mg-acetaminophen 325 1 tab PO Q8H PRN #60 tab 07/27/21 11/30/21 Rx mg tablet tamsulosin 0.4 mg capsule (Flomax) 0.4 mg PO QDAY #90 cap 10/25/21 11/30/21 Rx alprazolam 0.5 mg tablet 0.5 mg PO BID PRN #14 tab 11/24/21 11/30/21 Rx Allergies Allergy/AdvReac Type Severity Reaction Status Date / Time No Known Drug Allergies Allergy Verified 11/30/21 10:42 Exam Vital Signs (past 8 hours): - 11/30/21 10:56 Temperature 97.8 F Pulse Rate 65 Respiratory Rate 12 Blood Pressure 192/99 H Pulse Oximetry 99 Oxygen Delivery Method Room Air Const General: healthy appearing Resp Effort & Inspection: normal respiratory effort GI Palpation: soft Assessment & Plan Assessment and plan (1) Colostomy status: Status: Acute Plan We will perform a colostomy and proctoscopy today to rule out unexpected malignancies prior to colostomy reversal tomorrow. Time Spent With Patient Critical Care time: I spent a total of [] minutes of critical care time on this patient's care today; this time is exclusive of procedural time.
[2021-11-30] MEDS: MIDAZOLAM 5 MG/5 ML VIAL IV (12:37)
[2021-11-30] MEDS: fentaNYL 250 MCG/5 ML INJ IV (12:43)
[2021-11-30 13:00] VITALS: BP 162/74; PULSE 49; RESP 16; TEMP 36.9; O2SAT 96
--- NOTE | 2021-11-30 13:00 | P.OP.COLON_ITS ---
Operative Date/Time/Diagnoses Date of procedure: 11/30/21 Time of procedure: 13:00 Pre-op diagnosis: Colon cancer screening and colostomy status Post-op diagnosis: same Procedure & Clinicians Study performed: Colonoscopy and proctoscopy with sedation Surgeon: Bala Rose Procedure Notes Procedure in detail: Surgeon: Bala Rose MD Procedure: The patient was brought to the operating room and placed supine. The patient was connected to monitoring devices. A time-out was performed. Sedation was administered with Versed and fentanyl. Once the patient was adequately sedated, the colostomy bag was removed and the scope was then inserted into the colostomy and advanced to the cecum where the appendiceal or ifice was identified and photographed. The scope was then slowly withdrawn over greater than 6 minutes. Mucosa was thoroughly inspected. No abnormalities were noted. The appliance was changed. Next, the scope was inserted through the rectum to the end of the rectal stump. There was a small polyp right at the staple line and this was left in Situ with a plan to remove it at the surgery tomorrow. The scope was retroflexed in the rectum. No abnormalities were noted. The scope was straightened and removed. The patient was awakened and brought to recovery. Versed: 7 mg Fentanyl: 150 mcg EBL: 0 Findings: Normal colon Scope withdrawal time: 12 Post-procedure Recommendations: Colonoscopy in 5 years Follow up: weeks Disposition: PACU
[2021-11-30 13:06] VITALS: BP 146/75; PULSE 56; RESP 12; O2SAT 95
[2021-11-30 13:11] VITALS: BP 142/76; PULSE 49; RESP 12; O2SAT 95
[2021-11-30 13:16] VITALS: BP 161/96; PULSE 55; RESP 16; O2SAT 98
[2021-11-30 13:20] VITALS: BP 163/90; PULSE 50; RESP 16; TEMP 37.1; O2SAT 97
--- NOTE | 2021-11-30 13:27 | SUR.PHASEII ---
pt given discharge instructions. Pt state he understands discharge instructions. pt to come back tomorrow for surgery. Pt's is picking up his prescriptions now. No distress noted. No complaints voiced.
== END 2021-11-30 13:47 | disposition home or self-care (01) ==
PROVIDERS: Family Provider Family Medicine; PCP Family Medicine; Referring Provider Surgery; Visit Provider Surgery
PROC: 0DJD8ZZ Inspection of Lower Intestinal Tract, Via Natural or Artificial Opening Endoscopic (ICD-10-PCS; CPT 45378; principal; 2021-11-30 11:45)
DX: Z12.11 Encounter for screening for malignant neoplasm of colon (principal); Z93.3 Colostomy status; I10 Essential (primary) hypertension; E03.9 Hypothyroidism, unspecified; K63.5 Polyp of colon
CPT/HCPCS: G0105; J2250; J3010

== ENCOUNTER 2021-12-01 07:12 | Inpatient (IN) | payer OTHER, SELFPAY ==
[2021-06-01 03:06] VITALS: BMI 24.2
[2021-11-24 09:36] VITALS: BMI 23.7
[2021-12-01] VITALS (19 sets, daily range): BP systolic 83–150; BP diastolic 38–84; PULSE 74–104; RESP 8–18; TEMP 36.3–38.1; O2SAT 93–100; BMI 23.7
--- NOTE | 2021-12-01 | PATH_ITS ---
[facility] Accession Number: [id number] . 01 Material submitted: . PART A: appendix - APPENDIX PART B: rectum - RECTUM PART C: colon - COLON . 01 Diagnosis: A. Appendix, Appendectomy: Appendix with no signficiant diagnostic abnormality. Negative for dysplasia and malignancy. . B. Rectum, Segmental Resection: Rectal segment with well healed staple line at blind end. Fibrous adhesions. Negative for active, chronic, and microscopic colitis. Negative for dysplasia and malignancy. . C. Colon, Segmental Resection: Colocutaneous tissue, with changes consistent with prior procedure. Negative for active, chronic, or microscopic colitis. Negative for dysplasia and malignancy. [facility] 12/08/2021 0924 Local . 01 Comment: B. The endoscopic impression of a polyp at the rectal stump staple line is noted. Sampled polypoid tissue from this area shows colonic tissue with a prominent benign lymphoid aggregate and polypid redundancy. There is no evidence of dysplasia or malignancy. . 01 Electronically signed: . Nicki Goodwin MD, Pathologist NPI- [id number] . 01 Gross description: . A. Received in formalin, labeled with the patient's name and designated 1. Appendix is a 7.0 cm long x 0.8 cm in diameter intact vermiform appendix with a moderate amount of attached mesoappendix and a stapled proximal margin (inked black). The serosa is brooks and hyperemic with focal extensive brooks fibrous and hemorrhagic adhesions. The wall is uniform, 0.3 cm thick. The lumen is uniform and pinpoint. No gross evidence of perforation or other lesions are identified. Administrative Clerk sections to include proximal inked margin, cross sections, and distal bisected tip are submitted in A1. B. Received in formalin labeled with the patient's name, designated 2. Rectum is a 3.5 cm long x 2.5 cm in diameter segment of bowel, received closed with one stapled end (inked black), and an opposing blind end with embedded sutures and dusky hemorrhagic adhesions. The serosa is brooks and smooth with a moderate amount of attached fat. The mucosa is pink-brooks and unremarkable with normal folding and an average wall thickness of 0.4 cm. No discrete lesions are identified. The blind end has multiple embedded kiah. No additional lesions are identified. Administrative Clerk composite longitudinal sections are submitted in B1-B2. . A small possible polypoid structure is located near the blind pouch measuring 0.3 cm in greatest dimension. . B5-B6: Possible polypoid structure. (AG:[id number]) . C. Received in formalin and labeled with the patient's name, designated 3. Colon is a 3.2 x 3.2 cm portion of exposed erythematous slightly nodular mucosa with a 0.7 x 0.2 cm peripheral attached portion of brooks- white fibrotic skin, contiguous with a 5.5 cm long x 3.5 cm in diameter segment of bowel, received closed with a stapled end. The skin/colostomy margin is inked black and the bowel mucosal margin is inked blue. The serosa is sandoval-brooks with focal extensive adhesions. The bowel mucosa is brooks, slightly granular with normal folding and an average wall thickness of 0.5 cm. No discrete masses or other lesions are identified. Administrative Clerk sections are submitted as follows: . C1: Colostomy site, including rim of skin. C2: Administrative Clerk mid portion. C3: Administrative Clerk bowel margin. (ANTONINO:[id number]) /[facility] 12/07/[address] [place] [address] . Pathologist provided ICD-10: Z43.3, Z93.3 . 01 CPT . 404196, 605899, [id number] Specimen Comment: A courtesy copy of this report has been sent to [phone] Performed at: 01 [facility] [address] [place] [address], [place], [place] [id number] MD Hussein Thurman MD Phone: [phone]
[2021-12-01] MEDS: LACTATED RINGERS 1,000 ML 42 ML IV ×3 (07:48→14:02)
--- NOTE | 2021-12-01 08:23 | PM.HP.1 ---
History of Present Illness History of Present Illness Date Patient Seen: 12/01/21 Time Patient Seen: 08:24 Chief complaint: INPT Narrative: Elkin is in for his colostomy reversal following his sigmoid colon resection for a perforation last May. He had a colonoscopy yesterday with no findings except a small polyp at the staple line of the rectal stump which was not resected because it will be resected during the take down. He has no new problems to report. Patient History Medical History Hypertension Hypothyroidism Trauma of urethra Surgical History Hx of exploratory laparotomy (06/01/21) Family & Social History Social History: household members spouse Tobacco & Substance use: Tobacco type cigarettes Smoking Status Former smoker alcohol intake never Substance Use Type marijuana Meds Home Medications and Allergies Home Medications Medication Instructions Recorded Confirmed Type loratadine 10 mg tablet (Claritin) 10 mg PO DAILY PRN 06/01/21 12/01/21 History benazepril 20 See Rx Instructions .ROUTE 06/28/21 12/01/21 Rx mg-hydrochlorothiazide 25 mg tablet .COMPLEX #60 tab levothyroxine 50 mcg tablet 50 mcg PO DAILY #90 tab 06/28/21 12/01/21 Rx hydrocodone 5 mg-acetaminophen 325 1 tab PO Q8H PRN #60 tab 07/27/21 12/01/21 Rx mg tablet tamsulosin 0.4 mg capsule (Flomax) 0.4 mg PO QDAY #90 cap 10/25/21 12/01/21 Rx alprazolam 0.5 mg tablet 0.5 mg PO BID PRN #14 tab 11/24/21 12/01/21 Rx metronidazole 500 mg tablet 500 mg PO TID #3 tab 11/30/21 12/01/21 Rx neomycin 500 mg tablet 1 g PO TID #3 tab 11/30/21 12/01/21 Rx Allergies Allergy/AdvReac Type Severity Reaction Status Date / Time No Known Drug Allergies Allergy Verified 12/01/21 07:24 Exam Vital Signs (past 8 hours): - 12/01/21 07:46 Temperature 97.8 F Pulse Rate 82 Respiratory Rate 16 Blood Pressure 142/80 H Pulse Oximetry 100 Oxygen Delivery Method Room Air Const General: healthy appearing Resp Effort & Inspection: normal respiratory effort GI Other: well perfused colostomy Assessment & Plan Assessment and plan (1) Colostomy status: Status: Acute Plan Plan for colostomy reversal today. Time Spent With Patient Critical Care time: I spent a total of [] minutes of critical care time on this patient's care today; this time is exclusive of procedural time.
[2021-12-01 08:32] LABS: Add Manual Diff / Slide Review NO; Basophils Absolute Auto 0 /uL (0-100); Basophils Percent Auto 0.4 % (0-2); Eosinophils Absolute Auto 100 /uL (0-450); Eosinophils Percent Auto 0.8 % (2-4); Hematocrit 40.2 % (41-53); Hemoglobin 14.3 g/dL (13.5-17.5); Lymphocytes Absolute Auto 1300 /uL (1100-4500); Lymphocytes Percent Auto 18.9 % (25-40); Mean Corpuscular HGB Conc 35.6 % (30-36); Mean Corpuscular Hemoglobin 28.5 PG (26-34); Monocytes Absolute Auto 900 /uL (0-900); Monocytes Percent Auto 12.6 % (3-14); Neutrophils Absolute Auto 4700 /uL (1500-7000); Neutrophils Percent Auto 67.3 % (50-75); Platelet Count 225 X10^3/uL (150-400); Red Blood Cell Count 5.02 X10^6/uL (4.5-5.9); Red Cell Distribution Width 14.3 % (11.6-14.8)
[2021-12-01 08:42] LABS: BUN Creatinine Ratio 16.7 (6-22); Blood Urea Nitrogen 12 mg/dL (9-20); Calcium 9.7 mg/dL (8.4-10.2); Carbon Dioxide 29 mmol/L (22-32); Chloride 93 mmol/L (98-107); Estimated Glomerular Filt Rate > 60 mL/min (>60); Glucose 118 mg/dL (80-110); HEMOLYSIS < 15 (0-50); Potassium 3.8 mmol/L (3.4-5.1); Sodium 131 mmol/L (137-145)
[2021-12-01] MEDS: AMPICILLIN/SULBACTAM 3 GM 3 GM in SODIUM CHLORIDE 0.9% 100 ML IV ×4 (09:33→23:46)
--- NOTE | 2021-12-01 10:42 | SUR.OPER ---
Monroe inserted with ease, Clear yellow urine was visualized in tubing prior to balloon inflation. Secured during surgery. Secured to thigh with statlock prior to leaving OR
[2021-12-01] MEDS: ACETAMINOPHEN IV 1,000 MG/100 ML VIAL 400 MG IV (11:00)
[2021-12-01] MEDS: BUPIVACAINE 0.25% (PF) VIAL 30 ML INJ (11:22)
--- NOTE | 2021-12-01 12:08 | PM.AN.REGBLK ---
Regional Block Pre-procedure Procedure: Continuous Epidural for Post-operative Pain Management Attending OB provider: Bala Rose PMH/ROS narrative: 76y/o male s/p colostomy for bowel perforation, here for takedown/reversal. PMH: HTN, well controlled on benazapril-HCTZ (took this am); hypothyroid, stable on synthroid (this am), BPH, on tamsulosin (this am). ASA Class: II Labs: Hct 40.2 % (41-53) L 12/01/21 08:21 Plt Count 225 X10^3/uL (150-400) 12/01/21 08:21 Medications: Current Medications Generic Name Dose Route Start Last Admin Trade Name Freq PRN Reason Stop Dose Admin Hydromorphone HCl 0 mg 12/01/21 10:36 Hydromorphone 2 Mg Inj IV Q5M PRN Pain, Severe (7-10) Hydromorphone HCl 0 mg 12/01/21 10:36 Hydromorphone 2 Mg Inj IV Q5M PRN Pain, Moderate (4-6) Hydromorphone HCl 0 mg 12/01/21 10:36 Hydromorphone 2 Mg Inj IV Q5MIN PRN Pain, Mild (1-3) Lactated Ringer's 1,000 mls @ 42 mls/hr 12/01/21 06:45 12/01/21 11:00 Lactated Ringers IV 42 mls/hr CONT JEFFERSON Administration FENT 2MCG/ML BUPIV 0.125% EPI 200 mcg in 100 mls @ 4 mls/hr 12/01/21 10:45 Fentanyl/Bupiv/Ns 2mcg/Ml - 0.125% EPIDURAL CONT JEFFERSON Allergies: Allergies Allergy/AdvReac Type Severity Reaction Status Date / Time No Known Drug Allergies Allergy Verified 12/01/21 07:24 Procedure Insertion date: 12/01/21 Insertion time: 09:20 Prep/Local: betadine x3 and 1% lidocaine Interspace: T10-11 Patient position: sitting Needle: 18 gauge Grant Loss of resistance with: saline VELMA at (cm): 4 Catheter placed at SKIN (cm): 9 Catheter in SPACE (cm): 5 Insertion: No CSF, No Blood, No Paresthesia with insertion, No Paresthesia with injection and No Test dose reaction Initial Medications TEST DOSE time: 09:25 TEST DOSE: 1.5% lidocaine with epinephrine 1:200k (mL): 3 BOLUS DOSE time: 09:35 BOLUS DOSE (mL): 3 BOLUS DOSE med: 0.2% ropivacaine Infusion INFUSION: 0.125% bupivacaine and with fentanyl 2 mcg/mL Initial rate (mL/hr): 4 Subsequent interventions: see anesthesia record. Infusion started at 12:05. PCEA. Post-procedure Anesthesia time START: 09:08 Anesthesia time END: 09:28 Post-procedure Anesthesia Assessment: Yes CV function: HR/BP stable, Yes Resp function: RR/sat/airway adequate, Yes Mental status appropriate and No Anesthesia complications
--- NOTE | 2021-12-01 14:55 | P.OP_ITS ---
Operative Date/Time/Diagnoses Date of procedure: 12/01/21 Time of procedure: 14:55 Pre-op diagnosis: Colostomy reversal Post-op diagnosis: same Procedure & Clinicians Procedure: Reversal of colostomy Same procedure as scheduled: Yes Surgeon: Bala Rose Desulfurizer Operator: Adrian Ojeda Anesthesia Type: General and Epidural Operative Notes Procedure in detail: The patient was given preoperative antibiotic. The patient was brought to the operating room where an epidural catheter was placed by Dr. Good. He was then placed on the table in the supine position and general endotracheal anesthesia was induced. Monroe catheter was placed. The colostomy was sutured closed with silk sutures. The abdomen was then prepped and draped in the usual fashion and a time-out was performed. An Ioban was placed over the colostomy. We then made a midline incision from 4 fingerbreadths above the umbilicus to the pubis. The abdomen was entered under direct vision. Omental adhesions were taken down. The Bookwalter retractor was placed and we explored the pelvis. The rectal stump was located. We dissected the rectal stump free and because it was rather long we took off about 3 cm. We then took down the colostomy and dropped the colon into the abdomen. There was some leakage of liquid stool from between the sutures and so the end was stapled off with a contour stapler. We did not have enough length to reach into the pelvis and so we started to take down the splenic flexure. There were some tenacious adhesions around the spleen and between the transverse colon and stomach. These were carefully taken down under direct vision. We had the perform a extensive lysis of adhesions of loops of small bowel to allow adequate length of the colon into the pelvis. Once there was good length we performed a end-to-end anastomosis using the EEA stapler. The leak test was performed and was negative. We irrigated the abdomen with over 5 L of warm saline. We placed a 19 round Torsten drain into the left abdomen and down into the left pelvis alongside the anastomosis. We brought the drain out through a right lower quadrant stab incision. The drain was secured with a 2-0 nylon stitch. A bulb was connected to the end. Finally we closed the abdomen. The midline fascial incision was closed with a running 0 PDS suture. We then closed the left lower quadrant fascial defect with multiple interrupted 0 Ethibond sutures. The midline skin incision was closed with kiah. The old colostomy site was partially closed with Vicryl suture and kiah and the remaining cavity was packed with iodoform gauze. Dressings were applied. The patient was awakened and brought to recovery room. EBL: [address] Ojeda provided essential assistance with retraction and creation of the anastomosis as well as intraoperative decision making. Post-operative Condition: stable Disposition: PACU
[2021-12-01] MEDS: LACTATED RINGERS 1,000 ML 999 ML IV (15:17)
[2021-12-01] MEDS: LACTATED RINGERS 1,000 ML 100 ML IV (16:58)
--- NOTE | 2021-12-01 17:15 | PC.NURSE ---
Post op note: Patient alert, oriented and cooperative. Catheter epidural off on arrival, no infusion. Notified and clarified with Dr. Good in anesthesia regarding patients order for infusion. VSS BP 137/70, HR 88. Order obtained to not continue infusion and he will remove catheter epidural after case. Informed Jessica RN regarding clarification with anesthesiology.
[2021-12-01] MEDS: GABAPENTIN 100 MG CAPSULE PO (23:46)
[2021-12-01] MEDS: IBUPROFEN 600 MG TABLET PO (23:46)
[2021-12-02] VITALS: BP 133/70; PULSE 77; RESP 17; TEMP 38.1; O2SAT 98
[2021-12-02 03:41] LABS: Add Manual Diff / Slide Review NO; Basophils Absolute Auto 0 /uL (0-100); Eosinophils Absolute Auto 0 /uL (0-450); Hematocrit 33.3 % (41-53); Hemoglobin 11.7 g/dL (13.5-17.5); Lymphocytes Absolute Auto 600 /uL (1100-4500); Lymphocytes Percent Auto 4.2 % (25-40); Mean Corpuscular HGB Conc 35.2 % (30-36); Mean Corpuscular Hemoglobin 28.5 PG (26-34); Monocytes Absolute Auto 1600 /uL (0-900); Monocytes Percent Auto 10.2 % (3-14); Neutrophils Absolute Auto 13100 /uL (1500-7000); Neutrophils Percent Auto 85.6 % (50-75); Platelet Count 176 X10^3/uL (150-400); Red Blood Cell Count 4.11 X10^6/uL (4.5-5.9); Red Cell Distribution Width 14.8 % (11.6-14.8); White Blood Cell Count 15.3 X10^3/uL (4.5-11.0)
[2021-12-02 03:57] LABS: BUN Creatinine Ratio 17.2 (6-22); Blood Urea Nitrogen 11 mg/dL (9-20); Calcium 8.5 mg/dL (8.4-10.2); Carbon Dioxide 26 mmol/L (22-32); Chloride 100 mmol/L (98-107); Estimated Glomerular Filt Rate > 60 mL/min (>60); Glucose 119 mg/dL (80-110); HEMOLYSIS < 15 (0-50); Potassium 3.8 mmol/L (3.4-5.1); Sodium 130 mmol/L (137-145)
[2021-12-02 04:00] VITALS: BP 120/58; PULSE 58; RESP 16; TEMP 37.5; O2SAT 97
[2021-12-02] MEDS: LACTATED RINGERS 1,000 ML 100 ML IV ×2 (04:04→15:57)
[2021-12-02] MEDS: LEVOTHYROXINE 50 MCG TABLET PO (06:05)
[2021-12-02] MEDS: AMPICILLIN/SULBACTAM 3 GM 3 GM in SODIUM CHLORIDE 0.9% 100 ML IV ×3 (06:06→20:56)
--- NOTE | 2021-12-02 06:25 | PC.NURSE ---
Shift Note-Patient was awake most of the night, rates pain 2/10, epidural Fent/bupiv at 2ml/hr plus occasion use of 3ml demand. Ibuprofen given for Temp 100.5, down to 99.5. Midline abdominal drsg D/I with shadowing on left. Torsten drain patent, put out 170ml sang fluid for shift.
[2021-12-02 08:00] VITALS: BP 136/68; PULSE 61; RESP 20; TEMP 37.1; O2SAT 98
[2021-12-02] MEDS: TAMSULOSIN 0.4 MG CAPSULE PO (10:19)
[2021-12-02] MEDS: GABAPENTIN 100 MG CAPSULE PO ×2 (11:32→23:52)
[2021-12-02] MEDS: FENT 2MCG/ML BUPIV 0.125% EPI 200 MCG/100 ML PLAST..BAG 3 MCG EPIDURAL (11:37)
--- NOTE | 2021-12-02 11:52 | CM.DANOTE ---
DCP: Case received, EMR reviewed and met with patient. Introduced self and role. Was able to obtain information regarding patient's baseline activity status prior to hospitalization. DCP assessment completed with information currently available. Patient is a 76 year old male who admitted yesterday morning to the care of the surgical team. PCP: Dr. Mcmullen. Payer: confirmed: [facility] [employer]. Patient came to the hospital via private vehicle for a surgical procedure. Patient had colostomy reversal. According to notes, patient had surgery in May, and ostomy was placed. He went home with ostomy, and confirmed that he was getting [facility]. Met with patient in his room. He was sitting up in bed, alert and oriented. He resides here in [facility], with spouse, Becky. At his baseline, he is independent at his baseline. He stated, he did well at home when he was discharged last May with his ostomy, and home health. Patient is glad to no longer need ostomy. P: DCP to continue to follow for any needs. Patient should be able to go home when he is deemed medically stable. Alicia Hendricks RN/[facility] Discharge Planning/Care Management CM Discharge Assessment Start: 12/02/21 11:50 Freq: Status: Active Protocol: Document 12/02/21 11:50 (Rec: 12/02/21 11:52 [id number]) Discharge Planning Assessment Assigned Director Of Development Alicia Hendricks RN/[facility] Cl[facility] Advance Directives? Yes Advance Directives on File No History Provided By Patient,Medical Record Prior Living Arrangements House Household Members spouse Type of transporation used prior to Drives own vehicle admit Independent with ADL's Yes Is patient alert and oriented? Yes Caregiver for Another No Barriers to Discharge No Transportation Arrangement friend or family Referrals Initiated None needed,Home Health Whiteboard Updated in Patient Room with Yes name and ext. # of Director Of Development Review Status In Process Next Review Type Continued Stay Review Pre-Anesthesia Assessment Start: 11/24/21 09:36 Freq: Status: Complete Protocol: Document 11/24/21 09:36 [facility] (Rec: 11/24/21 09:42 [facility] [id number]) Pre-Anesthesia Assessment Patient Information Reviewed Via Chart Review Comment COVID screen not identified Primary Care Provider Ezra Garcia Seen Specialist in Last 12 Months Yes Specialist Seen Emergency,General surgeon, Urologist Primary Language Moldovan Preferred Language Moldovan Lead Nuclear Medicine Technologist Required No Height 5 ft 6 in Weight 147 lb Body Mass Index (BMI) 23.7 Barriers to Learning None Hx Anesthesia Reactions No Hx Family Anesthesia Reaction No Hx Malignant Hyperthermia No Hx Blood Transfusion Reaction No Anesthesia Review Requested No alcohol intake never Smoking Status Current every day smoker how long ago did patient quit smoking 55 yrs ago Substance Use Type marijuana Patient is completely paralyzed or No completely immobile Mental Status Oriented to own ability Hx Sleep Apnea No Currently Taking a Beta Moose No Anti-Coagulant Therapy No Cardiac Testing No Hx Pacemaker/ICD No Pacemaker Rep Required? No Urinary Catheter Present No Hx Urinary Self Catheterization No Diabetes No Presence of External or Internal Medical Yes: Colostomy Devices Received a COVID vaccine? Yes Marital Status Lives With spouse Patient Discharge Plan Description Return Home Do You Have Any Spiritual Beliefs That No May Affect Your HC Choices? Do You Have Any Cultural Practices That No May Affect Your HC Choices? Emergency Contact Name Janna Hernandez (currently in room 207) Emergency Contact Advance Directives? Yes Advance Directives on File No Power of Hospice Plan Administrator Yes Power of Hospice Plan Administrator Name Janna Hernandez
[2021-12-02 12:00] VITALS: BP 161/85; PULSE 70; RESP 21; TEMP 36.8; O2SAT 97
--- NOTE | 2021-12-02 12:12 | PT.IIE ---
Current Diagnoses Colostomy status (12/01/21) Surgery Performed Operation Date: 12/01/21 08:00 Actual Procedures p Colostomy reversal - Bala Rose MD Medical History (Last Reviewed 11/30/21 @ 10:41 by Steve Corral RN) Hypertension Hypothyroidism Trauma of urethra Physical Therapy Inpatient Evaluation/Re-Eval M1 PT/OT-IP Prior Functional Status Start: 12/02/21 12:02 Freq: Status: Active Protocol: Document 12/02/21 12:02 (Rec: 12/02/21 12:12 [id number]) Medical Review Prior Functional Status Medical History Reviewed Yes Mobility and Gait Independent Activities of Daily Living and IADL's Independent Prior Functional Level (Other details) 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 4 steps with railing to enter home. Stays on first floor of home Home Environment Walk in Shower Home Equipment Four Wheel Walker Additional Social History Comment has walker from prior dx that Pt states she no longer needs it and he can use it if needed. M2 PT-IP Current Condition Start: 12/02/21 12:02 Freq: Status: Active Protocol: Document 12/02/21 12:02 BC (Rec: 12/02/21 12:12 [id number]) Physical Therapy Current Condition Current Condition Evaluation Date 12/02/21 Treatment Diagnosis Perforated bowel; difficulty with ambulation Onset Date 12/01/21 M3 PT-IP Subjective Start: 12/02/21 12:02 Freq: Status: Active Protocol: Document 12/02/21 12:02 BC (Rec: 12/02/21 12:12 [id number]) Subjective Physical Therapy Visit Type Type Initial Evaluation Visit Start Time 10:20 Visit Stop Time 10:55 Total Visit Minutes 26 Physical Therapy Visit Comments Patient Comments Requests to ambulate to bathroom. Therapy Pain Assessment Pain When Pain Assessed sitting Pain Present Pain Present Pain Reported Location Abdomen Intensity 2 Scale Used Numeric (0 - 10) Description Aching M4 PT-IP Mobility and Gait Start: 12/02/21 12:02 Freq: Status: Active Protocol: Document 12/02/21 12:02 BC (Rec: 12/02/21 12:12 [id number]) PT-Bed Mobility Assessment Rolling Type of Rolling Roll to Left Level of Assist Independent,Standby Assistance Supine to Sit Supine to Sit Independent Sit to Supine Sit to Supine Independent Scooting Scooting to Edge of Bed Independent Scooting Up and Down in Bed Independent PT-Transfer Assessment Sit to and From Stand Sit to and from Stand Independent Equipment Transfer Assistive Device Gait Belt Transfers Transfer Destination Bed Transfer Technique Stand Pivot Transfer Ability Level of Assist Independent Gait Assessment Gait Gait Assistance Required: Independent Distance (Feet) 5 Assistive Devices Assistive Device Gait Belt Gait Deviations General Gait Pattern Within Normal Limits Comments Gait Comments Pt able to ambulate just a few feet at bedside due to epidural intact. No LE weakness/buckling. Stair Climbing Assessment Comments Stair Climbing Comments Stair assessment not appropriate at time of eval due to epidural/multiple lines PT-Balance Assessment Sitting Balance and Reactions Static Sitting Balance Ability Normal Dynamic Sitting Balance Ability Normal Standing Balance and Reactions Static Standing Balance Ability Normal Dynamic Standing Balance Ability Normal Device Used none Functional Assessments Other Functional Tests Performed Prior to OOB, Pt demo'd 5/5 quad and ankle DF bilaterally. In standing he was able to march in place, minisquat and heel/toe raises without difficulty. M5 PT-IP Objective Assessments Start: 12/02/21 12:02 Freq: Status: Active Protocol: Document 12/02/21 12:02 (Rec: 12/02/21 12:12 [id number]) Orientation Orientation/Cognition Level of Alertness Alert Orientation Name,Age,Birthday,Month,Date, Year,Day of Week,Place, Situation Language Function Ability No Deficits Noted Safety Awareness Understands Safety Issues Memory Description No Deficits Noted Gross Range of Motion Upper Extremity ROM Assessment Within Functional Limits Lower Extremity ROM Assessment Within Functional Limits Strength Upper Extremity Strength Assessment Within Functional Limits Lower Extremity Strength Assessment Within Functional Limits Coordination Assessment Gross Coordination Gross Coordination WNL Sensation Assessment Sensation Sensation Description Numbness Comments Sensation Comments numbness L flank due to epidural. M6 PT-IP Treatment Start: 12/02/21 12:02 Freq: Status: Active Protocol: Document 12/02/21 12:02 BC (Rec: 12/02/21 12:12 [id number]) Physical Therapy Treatment Exercises Exercises Ankle Pumps,Quad Sets M7 PT-IP Assessment and Plan Start: 12/02/21 12:02 Freq: Status: Active Protocol: Document 12/02/21 12:02 (Rec: 12/02/21 12:12 [id number]) PT Summary Assessment and Plan Potential Rehabilitation Potential Excellent Status of Condition at Evaluation Stable Summary Impairments Gait Progress Towards Goals Progressing Toward Goals Assessment Summary Pt admitted for reversal of colostomy. He is reporting his PLOF as fully independent and very active on property and biking. CLOF is limited primarily due to medical need of epidural at T10-T11 following surgery. He demonstrates 5/5 strength on BLE MMT prior to OOB attempt. He is able to transfer independently into standing bedside without assistive device. At this point he demonstrates good closed chain /WB strength in BLE with mini squats and heel/toe raises . Good balance demonstrated throughout. Limited in full PT evaluation due to epidural attachment. Anticipate he will mobilize later with nsng as epidural is d/c. 1 more PT visit as needed for stair assessment though I anticipate he will do fine based on PLOF and his CLOF demonstrated. Goals Other Goals Pt will ascend/descend 4 steps with railing for safe entrance into home. Frequency of Treatment Frequency Of Treatment Once a Day Treatment Plan Physical Therapy Treatment Plan Gait Training,Discharge Planning Recommendations To Nursing Amount of Assist Needed Independent,Standby Assistance Discharge Recommendations PT Discharge Recommendations Home Transportation Needs at Discharge Private Vehicle
--- NOTE | 2021-12-02 17:47 | PC.NURSE ---
Pt resting quietly, intermittently anxious and tearful throughout the day, but asking appropriate questions. Dr. Rose in to see patient. Drsg change to ostomy closure sight. Repacked with iodiform covered with gauze and medipore. Swelling to left side assessed by MD. Patient reports mild increase in pain during palpation. Epidural infusing at 3mls/hr, with 3ml demand available. Taking clear liquids without difficulty.
[2021-12-02 18:00] VITALS: BP 161/81; PULSE 64; RESP 21; TEMP 37.1; O2SAT 97
--- NOTE | 2021-12-02 18:21 | P.PN_ITS ---
Subjective Subjective Date Patient Seen: 12/02/21 Time Patient Seen: 18:21 Interval history: Pain is well controlled. No flatus. He was able to get out of bed today and sit on the edge of bed and stand on his feet. Tolerating small amounts of clear liquids. Exam Vital Signs (past 8 hours): - 12/02/21 12:00 Temperature 98.2 F Pulse Rate 70 Respiratory Rate 21 Blood Pressure 161/85 H Pulse Oximetry 97 Oxygen Delivery Method Room Air Oxygen Flow Rate 0 Narrative Exam Narrative: Drain output is serosanguineous The old colostomy site is clean and dry and gauze was repacked There is bulging of the left flank Objective Labs Result Diagrams: 12/02/21 03:20 12/02/21 03:20 Labs: Laboratory Results - last 24 hr 12/02/21 12/02/21 03:20 03:20 WBC 15.3 H D RBC 4.11 L Hgb 11.7 L Hct 33.3 L MCV 81.0 MCH 28.5 MCHC 35.2 RDW 14.8 Plt Count 176 Neut % (Auto) 85.6 H Lymph % (Auto) 4.2 L [place] % (Auto) 10.2 Eos % (Auto) 0.0 L Baso % (Auto) 0.0 Neut # (Auto) 05711 H Lymph # (Auto) 600 L [place] # (Auto) 1600 H Eos # (Auto) 0 Baso # (Auto) 0 Sodium 130 L Potassium 3.8 Chloride 100 Carbon Dioxide 26 BUN 11 Creatinine 0.64 L Estimated GFR > 60 BUN/Creatinine Ratio 17.2 Glucose 119 H Calcium 8.5 PFSH Medical History Hypertension Hypothyroidism Trauma of urethra Surgical History Hx of exploratory laparotomy (06/01/21) Social History household members: spouse Smoking Status: Former smoker alcohol intake: never Assessment & Plan Assessment and plan (1) Postoperative examination: Status: Acute Plan Suspect the bulging of the left flank is related to some laxity of the abdominal wall musculature from the epidural catheter. Await flatus before advancing diet Change left sided colostomy packing daily. Will start Lovenox. Time Spent With Patient Critical Care time: I spent a total of [] minutes of critical care time on this patient's care today; this time is exclusive of procedural time. Quality VTE Deep Vein Thrombosis/Pulmonary Embolism Present on Admission: No
--- NOTE | 2021-12-02 21:48 | P.PN_ITS ---
Subjective Subjective Date Patient Seen: 12/02/21 Time Patient Seen: 07:00 Interval history: POD#1 colostomy reversal, pain well controlled with thoracic epidural catheter @2mL/h overnight. Pt reported using PCEA x 3 (3mL bolus) overnight with good relief of pain. No flatus, tolerating clears. Exam Vital Signs (past 8 hours): - 12/02/21 18:00 Temperature 98.8 F Pulse Rate 64 Respiratory Rate 21 Blood Pressure 161/81 H Pulse Oximetry 97 Oxygen Delivery Method Room Air Oxygen Flow Rate 0 Narrative Exam Narrative: good block at site of incision L side, to cold sensation, though difficult to ascertain exactly the level. Epidural site without pain, redness, catheter in place. Objective Labs Result Diagrams: 12/02/21 03:20 12/02/21 03:20 Labs: Laboratory Results - last 24 hr 12/02/21 12/02/21 03:20 03:20 WBC 15.3 H D RBC 4.11 L Hgb 11.7 L Hct 33.3 L MCV 81.0 MCH 28.5 MCHC 35.2 RDW 14.8 Plt Count 176 Neut % (Auto) 85.6 H Lymph % (Auto) 4.2 L [place] % (Auto) 10.2 Eos % (Auto) 0.0 L Baso % (Auto) 0.0 Neut # (Auto) 83272 H Lymph # (Auto) 600 L [place] # (Auto) 1600 H Eos # (Auto) 0 Baso # (Auto) 0 Sodium 130 L Potassium 3.8 Chloride 100 Carbon Dioxide 26 BUN 11 Creatinine 0.64 L Estimated GFR > 60 BUN/Creatinine Ratio 17.2 Glucose 119 H Calcium 8.5 PFSH Medical History Hypertension Hypothyroidism Trauma of urethra Surgical History Hx of exploratory laparotomy (06/01/21) Social History household members: spouse Smoking Status: Former smoker alcohol intake: never Assessment & Plan Assessment & Plan narrative: good block, though one-sided, with adequate pain control. Rate increased to 3mL/h. Will leave through tonight, reassess tomorrow am. Time Spent With Patient Critical Care time: I spent a total of [] minutes of critical care time on this patient's care today; this time is exclusive of procedural time. Quality VTE Deep Vein Thrombosis/Pulmonary Embolism Present on Admission: No
[2021-12-02 22:00] VITALS: BP 135/87; PULSE 74; RESP 17; TEMP 37.2; O2SAT 97
[2021-12-03] VITALS (9 sets, daily range): BP systolic 138–178; BP diastolic 67–84; PULSE 63–80; RESP 17–19; TEMP 36.8–37.4; O2SAT 94–100
[2021-12-03] MEDS: LACTATED RINGERS 1,000 ML 100 ML IV (03:34)
[2021-12-03] MEDS: AMPICILLIN/SULBACTAM 3 GM 3 GM in SODIUM CHLORIDE 0.9% 100 ML IV ×3 (06:38→18:13)
[2021-12-03] MEDS: FENT 2MCG/ML BUPIV 0.125% EPI 200 MCG/100 ML PLAST..BAG 3 MCG EPIDURAL (07:47)
[2021-12-03] MEDS: LEVOTHYROXINE 50 MCG TABLET PO (08:02)
[2021-12-03] MEDS: TAMSULOSIN 0.4 MG CAPSULE PO (08:32)
[2021-12-03] MEDS: hydroCHLOROthiazide 25 MG TABLET PO (08:32)
[2021-12-03] MEDS: lisinopriL 20 MG TABLET PO (08:33)
[2021-12-03] MEDS: ENOXAPARIN 40 MG/0.4 ML SYRINGE SUBCUT (08:33)
--- NOTE | 2021-12-03 09:03 | PT.IPTN ---
Current Diagnoses Encounter for follow-up examination after completed treatment for conditions other than malignant neoplasm (12/01/21) Colostomy status (12/01/21) Surgery Performed Operation Date: 12/01/21 08:00 Actual Procedures p Colostomy reversal - Bala Rose MD Physical Therapy Treatment Note M2 PT-IP Current Condition Start: 12/02/21 12:02 Freq: Status: Active Protocol: Document 12/03/21 08:35 SP (Rec: 12/03/21 12:44 SP [id number]) Physical Therapy Current Condition Current Condition Evaluation Date 12/02/21 Treatment Diagnosis Perforated bowel; difficulty with ambulation Onset Date 12/01/21 M3 PT-IP Subjective Start: 12/02/21 12:02 Freq: Status: Active Protocol: Document 12/03/21 08:35 SP (Rec: 12/03/21 12:44 SP [id number]) Subjective Physical Therapy Visit Type Type Treatment Note Visit Start Time 08:35 Visit Stop Time 09:03 Total Visit Minutes 28 Notes Vitals taken during tx: elevate supine: BP 182/104 HR 75 SaO2 98% on RA. post mobility: BP 188/84 HR ?, SaO2 88% initially recovered with seconds to 94% on RA. Number of AWNING MAKER Visits 1 Physical Therapy Visit Comments Patient Comments Pt requested out of bed mobility and eventually use of BSC with nursing end PT. Patient Goals Use commode. Therapy Pain Assessment Pain When Pain Assessed During Mobility Pain Present Pain Present Pain Reported Location Abdomen Intensity 2 Scale Used Numeric (0 - 10) Description Aching,With Movement Pain Behaviors Facial Grimacing Pain Management Techniques Distraction,Modification of Treatment,Re-positioning, Timing of Activity with Medications M4 PT-IP Mobility and Gait Start: 12/02/21 12:02 Freq: Status: Active Protocol: Document 12/03/21 08:35 SP (Rec: 12/03/21 12:44 SP [id number]) PT-Bed Mobility Assessment Rolling Type of Rolling Roll to Left Level of Assist Independent,Standby Assistance Supine to Sit Supine to Sit Independent,Bedrails Scooting Scooting to Edge of Bed Independent PT-Transfer Assessment Sit to and From Stand Sit to and from Stand Independent Equipment Transfer Assistive Device None,Gait Belt,Front Wheeled Walker Orthotic/Prosthetic Devices or Brace: No Transfers Transfer Destination Bed,Bedside Commode Transfer Technique pt ambulated using FWW initially then no AD Transfer Ability Level of Assist Independent,Standby Assistance Comments Mobility Comments Instructed pt BLe exercises supine pre mobiltiy ROM: AP, slow ROM heel slide with abdominal engagement awareness for stabilization/comfort. LR L w/use bed rail support, cued knee flexion assist abdominal support, then scoot to EOB SBA- I. AWNING MAKER donned GB upper chest. Sit>stand I light use UEs on bed. Instructed marching in place, good stability very light hand contact FWW for stability. Pt further gait end bed and back w/FWW sBA with AWNING MAKER manage tubing, approx 10 ft. Then 2nd set gait no AD sBA, stable. STS from closed BSC near bed light UE on BSC arm rests x5 reps, standing balance assessment NBOS EC 30 sec light wt shifts but self recovery stability SBA, tandem EO 30sec stance unsupported little sways but self recovery without contact needed on FWW placed in front for safety. Pt complete portable step R HR CGA x4 reps step up and back down, stable and stated little tiring but no support needed. Pt returned to EOB. Called the nurse per pt request may want to use BSC assist for safety. Nurse took over pt care. Pt had call light and all needs in reach before left . Gait Assessment Gait Gait Assistance Required: Independent,Standby Assistance Distance (Feet) 20 Able to Maintain Weight Bearing Status Yes During Gait Assistive Devices Assistive Device None,Gait Belt,Front Wheeled Walker Orthotic/Prosthetic Devices or Brace: No Gait Deviations General Gait Pattern Within Normal Limits Factors Limiting Gait Function Factors Limiting Gait Function Decreased Activity Tolerance Comments Gait Comments Pt only able to ambulate just few feet end bed back approx 10 ft x2 laps due to epidural intact. No LE weakness/ buckling. Stair Climbing Assessment Evaluation Level of Assist On Stairs Standby Assistance,Contact Guard Assistance Devices Stair Climbing Assistive Devices Right Railing Technique/Endurance Stair Climbing Direction Ascend and Descend Stair Climbing Technique Step to Step Number of Steps Climbed 1 Stair Climbing Set # Repetitions (reps) 4 Comments Stair Climbing Comments Pt able ascend/descend portable 8 step in room at bedside CGA first 3 steps for safety assessment, SBA 4th step, stable no LOB/balance deviations. PT-Balance Assessment Sitting Balance and Reactions Static Sitting Balance Ability Normal Dynamic Sitting Balance Ability Normal Standing Balance and Reactions Static Standing Balance Ability Normal Dynamic Standing Balance Ability Normal Device Used none Comments Other Balance Tests/Deviations/Treatment see mobility comments. : Functional Assessments Functional Tests 5 Times Sit to Stand light contact arm rests ab support, not timed Other Functional Tests Performed NBOS EC 30 sec, tandem stance unsupported EO no LOB. see mobiltiy details. M5 PT-IP Objective Assessments Start: 12/02/21 12:02 Freq: Status: Active Protocol: Document 12/02/21 12:02 BC (Rec: 12/02/21 12:12 BC [id number]) Orientation Orientation/Cognition Level of Alertness Alert Orientation Name,Age,Birthday,Month,Date, Year,Day of Week,Place, Situation Language Function Ability No Deficits Noted Safety Awareness Understands Safety Issues Memory Description No Deficits Noted Gross Range of Motion Upper Extremity ROM Assessment Within Functional Limits Lower Extremity ROM Assessment Within Functional Limits Strength Upper Extremity Strength Assessment Within Functional Limits Lower Extremity Strength Assessment Within Functional Limits Coordination Assessment Gross Coordination Gross Coordination WNL Sensation Assessment Sensation Sensation Description Numbness Comments Sensation Comments numbness L flank due to epidural. M6 PT-IP Treatment Start: 12/02/21 12:02 Freq: Status: Active Protocol: Document 12/03/21 08:35 SP (Rec: 12/03/21 12:44 SP [id number]) Physical Therapy Treatment Exercises Exercises Ankle Pumps,Heel Slides Education Education Provided Safety Other Treatments Other Treatment Performed see mobiltiy comments M7 PT-IP Assessment and Plan Start: 12/02/21 12:02 Freq: Status: Active Protocol: Document 12/03/21 08:35 SP (Rec: 12/03/21 12:44 SP [id number]) PT Summary Assessment and Plan Potential Rehabilitation Potential Excellent Status of Condition at Evaluation Stable Summary Impairments Gait Progress Towards Goals Progressing Toward Goals Assessment Summary Pt BP hypertensive at rest, diastolic improved with mobility see notes above, He is I in all mobility at bedside with no AD required. Completed 4 step mgt needed to complete for entering home CG > SBA, stable balance assessment. AWNING MAKER notified PT and recommending DC from therapy services. Pt is ok to return home when medically cleared. Goals Other Goals Pt will ascend/descend 4 steps with railing for safe entrance into home. Frequency of Treatment Frequency Of Treatment Once a Day Treatment Plan Physical Therapy Treatment Plan Discharge Planning Other Recommendations and Next Treatment Pt has met all goals and Focus recommendation DC from PT caseload, is able return home when medically stable/cleared. Recommendations To Nursing Amount of Assist Needed Independent Discharge Recommendations PT Discharge Recommendations Home Transportation Needs at Discharge Private Vehicle
--- NOTE | 2021-12-03 10:24 | P.PN_ITS ---
Subjective Subjective Interval history: POD#2 colostomy reversal, TEP in place for POPM. Pain control adequate, used PCEA x2 overnight with rate of 3mL/h. Pain not bad when button pushed, but improves with PCEA. Tolerating PO, using commode. Afebrile, VSS. Exam Vital Signs (past 8 hours): - 12/03/21 06:00 12/03/21 08:33 Temperature 98.2 F Pulse Rate 63 68 Respiratory Rate 18 Blood Pressure 163/74 H 171/84 H Pulse Oximetry 100 Oxygen Delivery Method Room Air Oxygen Flow Rate 0 Narrative Exam Narrative: Alert, up on commode, comfortable appearing. Epidural site c/d/i, no erythema or tenderness. Catheter slightly pulled out approx 1-2cm, still adequate, good function/pain control, no leak. Block to cold sensation equal bilaterally, approx T10-12, only covering lower aspect of surgical incision. Objective Labs Result Diagrams: 12/02/21 03:20 12/02/21 03:20 [facility] Medical History Hypertension Hypothyroidism Trauma of urethra Surgical History Hx of exploratory laparotomy (06/01/21) Social History household members: spouse Smoking Status: Former smoker alcohol intake: never Assessment & Plan Assessment and plan (1) Postoperative examination: Status: Acute Plan see below Assessment & Plan narrative: Good pain control POD#[address] Plan: Continue epidural infusion without change through tonight, cap in am, anticipate pulling catheter in coordination with lovenox hold. Discussed with Dr Rose, in agreement with plan. Time Spent With Patient Critical Care time: I spent a total of [] minutes of critical care time on this patient's care today; this time is exclusive of procedural time. Quality VTE Deep Vein Thrombosis/Pulmonary Embolism Present on Admission: No
[2021-12-03] MEDS: GABAPENTIN 100 MG CAPSULE PO ×2 (12:00→23:58)
--- NOTE | 2021-12-03 16:37 | PM.PN.1 ---
Subjective Subjective Interval history: Doing well. Has had multiple liquid bowel movements. Pain is well controlled. Still no significant appetite. No nausea or vomiting. Exam Vital Signs (past 8 hours): - 12/03/21 10:00 12/03/21 10:26 12/03/21 14:00 Temperature 98.8 F 99.0 F Pulse Rate 77 63 Respiratory Rate 18 17 Blood Pressure 171/84 H 138/67 Pulse Oximetry 98 94 99 Oxygen Delivery Method Room Air Oxygen Flow Rate 0 Narrative Exam Narrative: Drain output remains serosanguineous Left colostomy wound site is clean dry and packing was changed Objective Labs Result Diagrams: 12/02/21 03:20 12/02/21 03:20 PFSH Medical History Hypertension Hypothyroidism Trauma of urethra Surgical History Hx of exploratory laparotomy (06/01/21) Social History household members: spouse Smoking Status: Former smoker alcohol intake: never Assessment & Plan Assessment and plan (1) Postoperative examination: Status: Acute Plan Doing well postoperative day 2 from colostomy reversal He would be able to advance his diet once he has some appetite The drain may be able to be removed tomorrow if he starts on a diet Holding Lovenox in anticipation of epidural removal tomorrow Time Spent With Patient Critical Care time: I spent a total of [] minutes of critical care time on this patient's care today; this time is exclusive of procedural time. Quality VTE Deep Vein Thrombosis/Pulmonary Embolism Present on Admission: No
[2021-12-04] VITALS (9 sets, daily range): BP systolic 121–193; BP diastolic 66–99; PULSE 62–90; RESP 17–77; TEMP 36.1–37.6; O2SAT 93–100
[2021-12-04] MEDS: AMPICILLIN/SULBACTAM 3 GM 3 GM in SODIUM CHLORIDE 0.9% 100 ML IV ×2 (00:01→07:48)
[2021-12-04] MEDS: LACTATED RINGERS 1,000 ML 100 ML IV (02:57)
[2021-12-04] MEDS: FENT 2MCG/ML BUPIV 0.125% EPI 200 MCG/100 ML PLAST..BAG 3 MCG EPIDURAL (05:23)
[2021-12-04] MEDS: LEVOTHYROXINE 50 MCG TABLET PO (05:37)
--- NOTE | 2021-12-04 05:51 | PC.NURSE ---
Addendum entered by Kelly Valladares R.N. 12/04/21 06:00: Patient states that swelling on left side of lateral abdomen is unchanged from when Dr. Rose saw him yesterday. Original Note: Patient reports effective pain relief with epidural per EMAR. Analgesia level to T8. Midline dressing C,D,,I and drsg to Left of midline C,D,I. Patient denies nausea. Pt encouraged to T,C,DB and use incentive spirometer. Encouraged patient to ankle wave and calf pump, as patient refusing SCDS. [place] draining clear yellow urine. JEFFRY with light pink tinged serosanguinous fluid. Abd soft with slight distention and active bowel tones.
[2021-12-04] MEDS: lisinopriL 20 MG TABLET PO (08:45)
[2021-12-04] MEDS: hydroCHLOROthiazide 25 MG TABLET PO (08:47)
[2021-12-04] MEDS: TAMSULOSIN 0.4 MG CAPSULE PO (08:47)
--- NOTE | 2021-12-04 10:39 | PM.PNPO.1 ---
Subjective Subjective Date Patient Seen: 12/04/21 Time Patient Seen: 10:39 Interval history: S/p colostomy takedown with epidural in place. BM and gas last night, no nausea, minimal abdominal pain. Mild distension. Wounds intact, dressing dry, stoma site packing. Exam Vital Signs (past 8 hours): - 12/04/21 04:00 12/04/21 08:00 12/04/21 08:33 Temperature 99.3 F 97.0 F L Pulse Rate 72 62 Respiratory Rate 19 77 H 18 Blood Pressure 121/77 165/89 H Pulse Oximetry 95 93 99 12/04/21 08:45 Temperature Pulse Rate 72 Respiratory Rate Blood Pressure 165/89 H Pulse Oximetry Oxygen Delivery Method Room Air Oxygen Flow Rate 0 Const General: cooperative, comfortable and anxious Nutritional Appearance: average body habitus HENMT Head: normocephalic and atraumatic Eyes Sclera: sclerae normal Neck Neck: trachea midline Resp Effort & Inspection: normal respiratory effort and able to speak in complete sentences Cardio Rate: regular rate Rhythm: regular rhythm GI Palpation: soft Other: drain is serous. hernandez in place. abdomen benign but slightly distended Objective Labs Result Diagrams: 12/02/21 03:20 12/02/21 03:20 PFSH Medical History Hypertension Hypothyroidism Trauma of urethra Surgical History Hx of exploratory laparotomy (06/01/21) Social History household members: spouse Smoking Status: Former smoker alcohol intake: never Assessment & Plan Post-op Postoperative Procedures: Procedures Operation Date: 12/01/21 08:00 Actual Procedure Side Surgeon p Colostomy reversal Bala Rose MD Postoperative status: doing well Postoperative status narrative: no complications. Epidural and hernandez in place. Postoperative plan narrative: Hopefully remove epidural and hernandez today. stop antibiotics. continue drain, ambulate and advance diet Time Spent With Patient Time with patient: 15-24 minutes Quality VTE Deep Vein Thrombosis/Pulmonary Embolism Present on Admission: No
[2021-12-04 10:54] LABS: Add Manual Diff / Slide Review NO; Basophils Absolute Auto 0 /uL (0-100); Basophils Percent Auto 0.3 % (0-2); Eosinophils Absolute Auto 200 /uL (0-450); Eosinophils Percent Auto 1.5 % (2-4); Hemoglobin 11.9 g/dL (13.5-17.5); Lymphocytes Absolute Auto 800 /uL (1100-4500); Mean Corpuscular HGB Conc 35.2 % (30-36); Mean Corpuscular Hemoglobin 28.7 PG (26-34); Mean Corpuscular Volume 81.7 fL (80-100); Monocytes Absolute Auto 900 /uL (0-900); Monocytes Percent Auto 8.7 % (3-14); Neutrophils Absolute Auto 9000 /uL (1500-7000); Neutrophils Percent Auto 82.5 % (50-75); Platelet Count 197 X10^3/uL (150-400); Red Blood Cell Count 4.16 X10^6/uL (4.5-5.9); Red Cell Distribution Width 14.3 % (11.6-14.8); White Blood Cell Count 10.9 X10^3/uL (4.5-11.0)
[2021-12-04 10:58] LABS: BUN Creatinine Ratio 7.1 (6-22); Blood Urea Nitrogen 5 mg/dL (9-20); Carbon Dioxide 33 mmol/L (22-32); Chloride 96 mmol/L (98-107); Estimated Glomerular Filt Rate > 60 mL/min (>60); Glucose 131 mg/dL (80-110); HEMOLYSIS < 15 (0-50); Sodium 133 mmol/L (137-145)
[2021-12-04] MEDS: ONDANSETRON 4 MG/2 ML INJ IV (11:49)
--- NOTE | 2021-12-04 13:35 | PM.PN.1 ---
Subjective Subjective Date Patient Seen: 12/04/21 Time Patient Seen: 15:54 Interval history: Called to see patient for removal of indwelling epidural catheter. His pain has been well controlled. He had an episode of N/V earlier today which has greatly troubled him, but seems to be unrelated to his pain control. He desires it to be removed. Epidural catheter removed by me, tip intact. Exam Vital Signs (past 8 hours): - 12/04/21 08:00 12/04/21 08:33 12/04/21 08:45 Temperature 97.0 F L Pulse Rate 62 72 Respiratory Rate 77 H 18 Blood Pressure 165/89 H 165/89 H Pulse Oximetry 93 99 12/04/21 12:50 Temperature 98.7 F Pulse Rate 74 Respiratory Rate 17 Blood Pressure 156/66 H Pulse Oximetry 100 Oxygen Delivery Method Room Air Oxygen Flow Rate 0 Objective Labs Result Diagrams: 12/04/21 10:37 12/04/21 10:37 Labs: Laboratory Results - last 24 hr 12/04/21 12/04/21 10:37 10:37 WBC 10.9 RBC 4.16 L Hgb 11.9 L Hct 34.0 L MCV 81.7 MCH 28.7 MCHC 35.2 RDW 14.3 Plt Count 197 Neut % (Auto) 82.5 H Lymph % (Auto) 7.0 L [place] % (Auto) 8.7 Eos % (Auto) 1.5 L Baso % (Auto) 0.3 Neut # (Auto) 9000 H Lymph # (Auto) 800 L [place] # (Auto) 900 Eos # (Auto) 200 Baso # (Auto) 0 Sodium 133 L Potassium 3.0 L Chloride 96 L Carbon Dioxide 33 H BUN 5 L Creatinine 0.70 Estimated GFR > 60 BUN/Creatinine Ratio 7.1 Glucose 131 H Calcium 9.0 PFSH Medical History Hypertension Hypothyroidism Trauma of urethra Surgical History Hx of exploratory laparotomy (06/01/21) Social History household members: spouse Smoking Status: Former smoker alcohol intake: never Assessment & Plan Time Spent With Patient Critical Care time: I spent a total of [] minutes of critical care time on this patient's care today; this time is exclusive of procedural time. Quality VTE Deep Vein Thrombosis/Pulmonary Embolism Present on Admission: No
--- NOTE | 2021-12-04 14:02 | PT-IP ANOTE ---
WOOD HEEL FLAP RUBBER informed PT that pt is moving well but limited to activities in room due to epidural attachment and ready for d/c and PT goals met. pt confirmed. This PT reviewed evaluating PT's note and WOOD HEEL FLAP RUBBER's note and this PT opted to continue PT and will revise goals. will need to assess mobility without epidural due to expected increase in pain level without epidural and will affect pt's mobility level. checked on pt this morning and stated that he is awaiting for epidural disconnection. talked with nurse and confirmed that the plan is to disconnect pt from the epidural but unknown time depending on when anesthesiologist arrives. preferred to do PT when pt is disconnected from the epidural to assess mobility level due to pain may affect mobility with expected increase pain without the epidural medication. will follow up in the afternoon.
[2021-12-04] MEDS: POTASSIUM CHLORIDE 20 MEQ/15 ML UDC 40 MEQ PO (14:26)
--- NOTE | 2021-12-04 14:57 | PT-IP ANOTE ---
Addendum entered and electronically signed by Bethany Vazquez PT 12/04/21 15:08: unable to revise PT goals for pt due to pt's refusal of PT tx. PT that sees the pt on next tx will assess pt's mobility without epidural and revise/update pt's PT goals. Original Note: checked on pt and now epidural is disconnected but pt refused PT. pt stated that he just vomitted and came out of his nose and just wants to rest right now.
[2021-12-04] MEDS: HYDROCODONE/ACET 5/325 TABLET 1 TAB PO ×2 (17:51→21:45)
[2021-12-04] MEDS: hydrOXYzine pamoate 25 MG CAPSULE PO (17:51)
[2021-12-04] MEDS: HYDROMORPHONE 0.5 MG INJ IV (18:23)
[2021-12-04] MEDS: POTASSIUM CHLORIDE IN WATER 10 MEQ/100 ML PIGGYBACK 100 MEQ IV ×3 (20:50→23:32)
[2021-12-04] MEDS: CELECOXIB 200 MG CAPSULE PO (21:43)
[2021-12-04] MEDS: PANTOPRAZOLE DR 40 MG TABLET PO (21:43)
[2021-12-05] VITALS: BP 167/86; PULSE 83; RESP 18; TEMP 36.1; O2SAT 98
[2021-12-05] MEDS: POTASSIUM CHLORIDE IN WATER 10 MEQ/100 ML PIGGYBACK 100 MEQ IV (00:27)
[2021-12-05] MEDS: GABAPENTIN 100 MG CAPSULE PO (01:09)
[2021-12-05] MEDS: HYDROCODONE/ACET 5/325 TABLET 1 TAB PO (01:43)
--- NOTE | 2021-12-05 02:13 | PC.NURSE ---
Dr. Sotelo notified of patient's difficulty with inability to tolerate potassium solution. Orders for K+ riders obtained, and for Pantoprazole for patient's complaint of heart burn. Patient reports that Vicodin is working well to control incisional pain. Drsg to midline incision C,D, I. and packing with drsg intact to old stoma site. BTs + L side of abdomen with some bulging/swelling unchanged from 12/03/21 physician/internist. Patient OOB to bathroom and had moderate liquid stool mixed with urine.
[2021-12-05] MEDS: LEVOTHYROXINE 50 MCG TABLET PO (06:07)
[2021-12-05] MEDS: PANTOPRAZOLE DR 40 MG TABLET PO (06:30)
[2021-12-05 08:00] VITALS: BP 162/95; PULSE 65; RESP 20; TEMP 37.6; O2SAT 98
[2021-12-05 08:05] VITALS: BP 162/95; PULSE 65
[2021-12-05] MEDS: TAMSULOSIN 0.4 MG CAPSULE PO (08:05)
[2021-12-05] MEDS: lisinopriL 20 MG TABLET PO (08:05)
[2021-12-05] MEDS: CELECOXIB 200 MG CAPSULE PO ×2 (08:05→20:58)
[2021-12-05] MEDS: hydroCHLOROthiazide 25 MG TABLET PO (08:06)
[2021-12-05] MEDS: HYDROCODONE/ACET 5/325 TABLET 2 TAB PO ×3 (08:06→16:34)
[2021-12-05] MEDS: SODIUM CHLORIDE 0.9% FLUSH 10 ML IV ×2 (08:07→21:29)
--- NOTE | 2021-12-05 10:47 | PT.IPTN ---
Current Diagnoses Encounter for follow-up examination after completed treatment for conditions other than malignant neoplasm (12/01/21) Colostomy status (12/01/21) Surgery Performed Operation Date: 12/01/21 08:00 Actual Procedures p Colostomy reversal - Bala Rose MD Physical Therapy Treatment Note M2 PT-IP Current Condition Start: 12/02/21 12:02 Freq: Status: Active Protocol: Document 12/03/21 08:35 SP (Rec: 12/03/21 12:44 SP [id number]) Physical Therapy Current Condition Current Condition Evaluation Date 12/02/21 Treatment Diagnosis Perforated bowel; difficulty with ambulation Onset Date 12/01/21 M3 PT-IP Subjective Start: 12/02/21 12:02 Freq: Status: Active Protocol: Document 12/05/21 10:47 AW (Rec: 12/05/21 12:11 AW [id number]) Subjective Physical Therapy Visit Type Type Treatment Note Visit Start Time 10:20 Visit Stop Time 10:47 Total Visit Minutes 27 Physical Therapy Visit Comments Patient Comments Pt would like to walk. Patient Goals Return home Therapy Pain Assessment Pain When Pain Assessed During Mobility Pain Present Pain Present Pain Reported Location Abdomen Intensity 2 Scale Used Numeric (0 - 10) M4 PT-IP Mobility and Gait Start: 12/02/21 12:02 Freq: Status: Active Protocol: Document 12/05/21 10:47 AW (Rec: 12/05/21 12:11 AW [id number]) PT-Bed Mobility Assessment Rolling Type of Rolling Log Rolling,Roll to Left Level of Assist Standby Assistance Supine to Sit Supine to Sit Minimal Assistance Scooting Scooting to Edge of Bed Independent PT-Transfer Assessment Sit to and From Stand Sit to and from Stand Independent Equipment Transfer Assistive Device None,Gait Belt Transfers Transfer Destination Chair Transfer Technique pt ambulated using FWW initially then no AD Transfer Ability Level of Assist Independent Comments Mobility Comments Pt was lying in bed after wound care as PT arrived. He rolled to his left side and needed min A for SL to sit when bedrails removed. He sat with and without UE support. He stood and walked around the room. He ambulated in the halls I/SBA with FWW initially but pt was carrying the walker which strained his abdomen. Pt then ambulated without AD a total of 400 feet I/SBA with no LOB or SOB. On return to the room, pt transferred to the chair IND and was left there with his spouse visiting. Gait Assessment Gait Gait Assistance Required: Independent,Standby Assistance Distance (Feet) 400 Able to Maintain Weight Bearing Status Yes During Gait Assistive Devices Assistive Device None,Gait Belt Gait Deviations General Gait Pattern Decreased Stride Length,Narrow Based Gait Factors Limiting Gait Function Factors Limiting Gait Function Decreased Activity Tolerance Stair Climbing Assessment Evaluation Level of Assist On Stairs Independent,Standby Assistance Devices Stair Climbing Assistive Devices Right Railing Technique/Endurance Stair Climbing Direction Ascend and Descend Stair Climbing Technique Step Over Step Number of Steps Climbed 10 Stair Climbing Set # Repetitions (reps) 2 Comments Stair Climbing Comments Pt descended/ascended ICU stairs with unilateral rail SBA. PT-Balance Assessment Sitting Balance and Reactions Static Sitting Balance Ability Normal Dynamic Sitting Balance Ability Normal Standing Balance and Reactions Static Standing Balance Ability Normal Dynamic Standing Balance Ability Normal Device Used none M5 PT-IP Objective Assessments Start: 12/02/21 12:02 Freq: Status: Active Protocol: Document 12/02/21 12:02 (Rec: 12/02/21 12:12 [id number]) Orientation Orientation/Cognition Level of Alertness Alert Orientation Name,Age,Birthday,Month,Date, Year,Day of Week,Place, Situation Language Function Ability No Deficits Noted Safety Awareness Understands Safety Issues Memory Description No Deficits Noted Gross Range of Motion Upper Extremity ROM Assessment Within Functional Limits Lower Extremity ROM Assessment Within Functional Limits Strength Upper Extremity Strength Assessment Within Functional Limits Lower Extremity Strength Assessment Within Functional Limits Coordination Assessment Gross Coordination Gross Coordination WNL Sensation Assessment Sensation Sensation Description Numbness Comments Sensation Comments numbness L flank due to epidural. M6 PT-IP Treatment Start: 12/02/21 12:02 Freq: Status: Active Protocol: Document 12/05/21 10:47 AW (Rec: 12/05/21 12:11 AW [id number]) Physical Therapy Treatment Education Education Provided Precautions,Safety M7 PT-IP Assessment and Plan Start: 12/02/21 12:02 Freq: Status: Active Protocol: Document 12/05/21 10:47 AW (Rec: 12/05/21 12:11 AW [id number]) PT Summary Assessment and Plan Potential Rehabilitation Potential Excellent Status of Condition at Evaluation Evolving Summary Impairments Bed Mobility,Gait Progress Towards Goals Progressing Toward Goals Assessment Summary Pt reassessed today after epidural discontinued. Pt does well and does not complain of increased pain. Pt struggled with log roll bed mobility when bed rail was removed but otherwise mobilized well. Pt is ok to return home when medically cleared. Goals Bed Mobility Goal Independent Transfer Goal Independent Gait Goal Independent Gait Distance 500 Other Goals Pt will ascend/descend 4 steps with railing for safe entrance into home. Days to Meet Goals 2 Frequency of Treatment Frequency Of Treatment Once a Day Treatment Plan Physical Therapy Treatment Plan Bed Mobility Training,Gait Training,Post Op Education, Discharge Planning Other Recommendations and Next Treatment Practice bed mobility, Focus continue to mobilize as tolerated, likely d/c to walk with nursing after one more visit. Recommendations To Nursing Amount of Assist Needed Independent,Standby Assistance Discharge Recommendations PT Discharge Recommendations Home Transportation Needs at Discharge Private Vehicle
--- NOTE | 2021-12-05 10:53 | P.PN_ITS ---
Subjective Subjective Date Patient Seen: 12/05/21 Time Patient Seen: 10:53 Interval history: Patient feeling much better. Exam Vital Signs (past 8 hours): - 12/05/21 08:00 12/05/21 08:05 Temperature 99.6 F Pulse Rate 65 65 Respiratory Rate 20 Blood Pressure 162/95 H 162/95 H Pulse Oximetry 98 Oxygen Delivery Method Room Air Oxygen Flow Rate 0 Narrative Exam Narrative: Abdomen is benign, wounds show no infection,seroma or hematoma. Good GI function. Objective Labs Result Diagrams: 12/04/21 10:37 12/04/21 10:37 Labs: Laboratory Results - last 24 hr 12/04/21 12/04/21 10:37 10:37 WBC 10.9 RBC 4.16 L Hgb 11.9 L Hct 34.0 L MCV 81.7 MCH 28.7 MCHC 35.2 RDW 14.3 Plt Count 197 Neut % (Auto) 82.5 H Lymph % (Auto) 7.0 L [place] % (Auto) 8.7 Eos % (Auto) 1.5 L Baso % (Auto) 0.3 Neut # (Auto) 9000 H Lymph # (Auto) 800 L [place] # (Auto) 900 Eos # (Auto) 200 Baso # (Auto) 0 Sodium 133 L Potassium 3.0 L Chloride 96 L Carbon Dioxide 33 H BUN 5 L Creatinine 0.70 Estimated GFR > 60 BUN/Creatinine Ratio 7.1 Glucose 131 H Calcium 9.0 PFSH Medical History Hypertension Hypothyroidism Trauma of urethra Surgical History Hx of exploratory laparotomy (06/01/21) Social History household members: spouse Smoking Status: Former smoker alcohol intake: never Assessment & Plan Post-op Postoperative Procedures: Procedures Operation Date: 12/01/21 08:00 Actual Procedure Side Surgeon p Colostomy reversal Bala Rose MD Postoperative day: 3 Postoperative status: doing well Postoperative status narrative: no complications Postoperative plan narrative: Advance diet to general. remove drain. ambulate and plan for discharge tomorrow. Replaced K with tablets as liquid made him sick. Time Spent With Patient Time with patient: 15-24 minutes Quality VTE Deep Vein Thrombosis/Pulmonary Embolism Present on Admission: No
[2021-12-05] MEDS: GABAPENTIN 300 MG CAPSULE PO (12:27)
--- NOTE | 2021-12-05 15:55 | CM.DPC ---
DCP Cont: It is noted that patient's diet is being advanced, per surgeon. Patient may be able to discharge home tomorrow, according to surgeon's note. Patient lives here in [place] with spouse, Janna. P: DCP to continue to follow. Patient should be able to go home when he is medically stable, may be tomorrow. Alicia Hendricks RN/Elevator Repairer
[2021-12-05 16:00] VITALS: BP 110/63; PULSE 60; RESP 18; TEMP 36.4; O2SAT 99
[2021-12-05] MEDS: POTASSIUM CHLORIDE 20 MEQ TAB 40 MEQ PO (16:34)
[2021-12-05 20:00] VITALS: BP 165/93; PULSE 87; RESP 18; TEMP 36.5; O2SAT 97
[2021-12-06] MEDS: GABAPENTIN 300 MG CAPSULE PO (00:21)
[2021-12-06] MEDS: HYDROCODONE/ACET 5/325 TABLET 2 TAB PO ×2 (00:25→07:42)
[2021-12-06 04:00] VITALS: BP 163/90; PULSE 78; RESP 18; TEMP 36.7; O2SAT 98
[2021-12-06] MEDS: LEVOTHYROXINE 50 MCG TABLET PO (06:52)
--- NOTE | 2021-12-06 07:00 | PC.NURSE ---
End of shift note. Care of patient from . AAOX4, good pain control with NORCO one tab. Up to BR with no assist, steady gate. Voiding clear maria c urine. Had a small formed BM. Abd midline incision well approximated with kiah. Patient is hoping to discharge home today.
[2021-12-06] MEDS: PANTOPRAZOLE DR 40 MG TABLET PO (07:36)
[2021-12-06] MEDS: POTASSIUM CHLORIDE 20 MEQ TAB 40 MEQ PO (07:36)
--- NOTE | 2021-12-06 08:20 | PM.DS.1 ---
History of Present Illness History of Present Illness Date Patient Seen: 12/06/21 Time Patient Seen: 08:20 Chief complaint: INPT Narrative: S/p colostomy reversal with monitored, asymptomatic hypokalemia. No post op complications. Discharge Providers Provider Date of admission: 12/01/21 07:12 Discharge Date: 12/06/21 Primary care physician: Jayson Mcmullen MD Consults: 12/01/21 16:14 Consult to Physical Therapy Evaluate & Treat Comment: T10-11 epidural, ambulate per surgeon as able Physician Instructions: Evaluate and Treat Discharge provider: Sandra Sotelo MD Summary Hospital Course Discharge Diagnosis: colostomy reversal. No complications Hospital Course: Post op epidural and slow transition to general diet due to complex surgery. Open wound at old stoma site with wet to dry dressing and stapled midline. Drain removed and antibiotics stopped. Status at Discharge Cognitive/behavioral status at discharge: oriented and at baseline, oriented Functional status at discharge: independent ambulation Overall status at discharge: patient is progressing back to baseline Time Spent with Patient Time spent: Greater than 30 minutes Exam Vital Signs (past 8 hours): - 12/06/21 04:00 Temperature 98.0 F Pulse Rate 78 Respiratory Rate 18 Blood Pressure 163/90 H Pulse Oximetry 98 Oxygen Delivery Method Room Air Oxygen Flow Rate 0 Narrative Exam Narrative: abdomen is soft and no infection, wounds healing well. Tolerating general diet and having adequate GI function. Objective Labs Result Diagrams: 12/04/21 10:37 12/04/21 10:37 [facility] Medical History Hypertension Hypothyroidism Trauma of urethra Surgical History Hx of exploratory laparotomy (06/01/21) Social History household members: spouse Smoking Status: Former smoker alcohol intake: never Discharge Assessment & Plan Assessment and Plan Assessment: No complications follow a tough colostomy reversal. Old stoma site requires wet to dry dressing daily. Plan of Treatment: Home today with no diet restrictions, wet to dry dressing of wound, no lifting greater than 15 lbs. Shower with wounds open. Follow up with [facility] 1-2 weeks. Discharge Plan Discharge Plan Patient Disposition: Home Discharge orders & Medications Prescriptions: New celecoxib [Celebrex] 200 mg Capsule 200 mg PO BID Qty: 20 1RF hydrocodone-acetaminophen 5-325 mg Tablet 2 tab PO Q4HR PRN (Reason: Pain, Moderate (4-6)) Qty: 30 0RF potassium chloride [Klor-Con M20] 20 mEq Tablet,Er Particles/Crystals 40 meq PO BIDWM Qty: 10 0RF pantoprazole 40 mg Tablet,Delayed Release (Dr/Ec) 40 mg PO 0700 Qty: 30 0RF gabapentin [Neurontin] 300 mg Capsule 300 mg PO Q12HR Qty: 20 1RF Continued benazepril-hydrochlorothiazide 20-25 mg tablet See Rx Instructions .ROUTE .COMPLEX Qty: 60 3RF Dose Instruction: TAKE 1 TABLET BY MOUTH DAILY Rx Instructions: TAKE 1 TABLET BY MOUTH DAILY levothyroxine 50 mcg tablet 50 mcg PO DAILY Qty: 90 1RF Rx Instructions: Need repeat TSH in september, tamsulosin [Flomax] 0.4 mg capsule 0.4 mg PO QDAY Qty: 90 3RF alprazolam 0.5 mg tablet 0.5 mg PO BID PRN (Reason: anxiety) Qty: 14 0RF hydrocodone-acetaminophen 5-325 mg tablet 1 tab PO Q8H PRN (Reason: pain) Qty: 60 0RF loratadine [Claritin] 10 mg tablet 10 mg PO DAILY PRN (Reason: Allergy Symptoms) 0RF neomycin 500 mg tablet 1 g PO TID Qty: 3 0RF Rx Instructions: administer at 2 PM, 3 PM, and 11 PM the day prior to surgery metronidazole 500 mg tablet 500 mg PO TID Qty: 3 0RF Rx Instructions: Take at 2 PM, 3 PM and 11 PM Follow up/Referrals: Bala Rose MD [Physician] - Jayson Mcmullen MD [Primary Care Provider] - Diet/Activity/Treatments Diet: Diet as Tolerated Activity: no lifting greater than 15 lbs for 4 weeks Skin/Wound/Dressing Care Dressing: moist to dry dressing change daily to old stoma site. dry dressing as needed to the other sites. Dangelo will be removed in clinic in 10-14 days Visit Report/Discharge Packet Instructions: DI for Colostomy or Ileostomy Reversal, [facility]: Wound Care Stand Alone Forms: Surgery Discharge Discharge Data Primary Care Provider: Jayson Mcmullen Quality VTE Deep Vein Thrombosis/Pulmonary Embolism Present on Admission: No
[2021-12-06] MEDS: TAMSULOSIN 0.4 MG CAPSULE PO (08:29)
[2021-12-06] MEDS: hydroCHLOROthiazide 25 MG TABLET PO (08:29)
[2021-12-06] MEDS: lisinopriL 20 MG TABLET PO (08:29)
[2021-12-06] MEDS: CELECOXIB 200 MG CAPSULE PO (08:29)
[2021-12-06 08:43] VITALS: BP 198/92; PULSE 67; RESP 20; TEMP 36.6; O2SAT 91
--- NOTE | 2021-12-06 11:11 | PC.NURSE ---
1110: Discharge instructions reviewed with pt. Dressing change teaching completed, pt expresses understanding and denies questions/concerns. PIV removed per order and pt escorted to ED entrance per staff.
== END 2021-12-06 11:20 | disposition home or self-care (01) | DRG 334 ==
LOC: AC 07:48 → ICU 12-02 09:17
PROVIDERS: Anesthesiology; Admitting Provider Surgery; Family Provider Family Medicine; PCP Family Medicine; Referring Provider Surgery; Visit Provider Surgery
PROC: 0DBP0ZZ Excision of Rectum, Open Approach (ICD-10-PCS; CPT 44620; principal; 2021-12-01 08:00)
DX: Z43.3 Encounter for attention to colostomy (principal); K66.0 Peritoneal adhesions (postprocedural) (postinfection); I10 Essential (primary) hypertension; E03.9 Hypothyroidism, unspecified; Z20.822 Contact with and (suspected) exposure to COVID-19; Z87.891 Personal history of nicotine dependence; Z12.11 Encounter for screening for malignant neoplasm of colon; Z93.3 Colostomy status; K63.5 Polyp of colon
CPT/HCPCS: 36415; 44626; 80048; 85025; 87635; 94762; 97110; 97116; 97161; 97530; C9803; G0105; J0131; J0295; J0330; J1100; J1170; J1650; J2250; J2405; J2704; J3010

== ENCOUNTER → 2022-01-27 09:04 | Outpatient (CLI) | payer OTHER, SELFPAY ==
[2021-12-01 16:18] VITALS: BMI 23.7
[2022-01-27 10:12] LABS: Add Manual Diff / Slide Review NO; Basophils Absolute Auto 0 /uL (0-100); Basophils Percent Auto 0.7 % (0-2); Eosinophils Absolute Auto 100 /uL (0-450); Eosinophils Percent Auto 1.5 % (2-4); Hematocrit 38.2 % (41-53); Hemoglobin 12.9 g/dL (13.5-17.5); Lymphocytes Absolute Auto 1300 /uL (1100-4500); Lymphocytes Percent Auto 21.7 % (25-40); Mean Corpuscular HGB Conc 33.7 % (30-36); Mean Corpuscular Hemoglobin 28.4 PG (26-34); Mean Corpuscular Volume 84.3 fL (80-100); Monocytes Absolute Auto 700 /uL (0-900); Monocytes Percent Auto 11.7 % (3-14); Neutrophils Absolute Auto 3900 /uL (1500-7000); Neutrophils Percent Auto 64.4 % (50-75); Platelet Count 247 X10^3/uL (150-400); Red Blood Cell Count 4.53 X10^6/uL (4.5-5.9); Red Cell Distribution Width 14.4 % (11.6-14.8)
[2022-01-27 10:54] LABS: Alanine Aminotransferase 12 IU/L (<50); Albumin 4.3 g/dL (3.5-5.0); Albumin Globulin Ratio 1.7 (1.0-2.8); Alkaline Phosphatase 107 U/L (38-126); Aspartate Aminotransferase 25 IU/L (17-59); BUN Creatinine Ratio 13.2 (6-22); Bilirubin Total 0.7 mg/dL (0.2-1.3); Blood Urea Nitrogen 10 mg/dL (9-20); Calcium 10.4 mg/dL (8.4-10.2); Carbon Dioxide 31 mmol/L (22-32); Chloride 96 mmol/L (98-107); Estimated Glomerular Filt Rate > 60 mL/min (>60); Globulin 2.5 g/dL (1.7-4.1); Glucose 92 mg/dL (80-110); HEMOLYSIS < 15 (0-50); Iron 100 ug/dL (49-181); Potassium 4.4 mmol/L (3.4-5.1); Sodium 134 mmol/L (137-145); Total Protein 6.8 g/dL (6.3-8.2)
[2022-01-27 11:05] LABS: Percent Iron Saturation 26 % (20-50); Total Iron Binding Capacity 383 ug/dL (261-462); Transferrin 290 mg/dL (206-381)
[2022-01-27 11:11] LABS: Free T4, Direct Thyroxine 1.52 ng/dL (0.78-2.19)
[2022-01-27 11:25] LABS: Thyroid Stimulating Hormone 0.835 uIU/mL (0.47-4.68)
[2022-01-27 11:41] LABS: Vitamin B12 208 pg/mL (239-931)
== END ==
PROVIDERS: Family Provider Family Medicine; PCP Family Medicine; Referring Provider Family Medicine; Visit Provider Family Medicine
DX: E03.9 Hypothyroidism, unspecified (principal); I10 Essential (primary) hypertension
CPT/HCPCS: 36415; 80053; 82607; 83540; 83550; 84439; 84443; 85025

== ENCOUNTER → 2022-10-13 08:59 | Outpatient (CLI) | payer OTHER, SELFPAY ==
[2021-12-01 16:18] VITALS: BMI 23.7
[2022-10-13 10:22] LABS: Alanine Aminotransferase 19 IU/L (<50); Albumin 4.1 g/dL (3.5-5.0); Albumin Globulin Ratio 1.7 (1.0-2.8); Alkaline Phosphatase 64 U/L (38-126); Aspartate Aminotransferase 30 IU/L (17-59); BUN Creatinine Ratio 18.1 (6-22); Bilirubin Total 0.6 mg/dL (0.2-1.3); Blood Urea Nitrogen 13 mg/dL (9-20); Calcium 9.4 mg/dL (8.4-10.2); Carbon Dioxide 31 mmol/L (22-32); Chloride 96 mmol/L (98-107); Estimated Glomerular Filt Rate > 60 mL/min (>60); Globulin 2.4 g/dL (1.7-4.1); Glucose 92 mg/dL (80-110); HEMOLYSIS < 15 (0-50); Potassium 3.7 mmol/L (3.4-5.1); Sodium 133 mmol/L (137-145); Total Protein 6.5 g/dL (6.3-8.2)
[2022-10-13 10:38] LABS: Free T4, Direct Thyroxine 1.17 ng/dL (0.78-2.19)
[2022-10-13 10:52] LABS: Thyroid Stimulating Hormone 1.31 uIU/mL (0.47-4.68)
== END ==
PROVIDERS: Family Provider Family Medicine; PCP Family Medicine; Referring Provider Family Medicine; Visit Provider Family Medicine
DX: E03.9 Hypothyroidism, unspecified (principal); E78.2 Mixed hyperlipidemia; I10 Essential (primary) hypertension
CPT/HCPCS: 36415; 80053; 84439; 84443

== ENCOUNTER → 2023-09-29 08:32 | Outpatient (CLI) | payer MEDICARE, SELFPAY ==
[2021-12-01 16:18] VITALS: BMI 23.7
[2023-09-29 09:22] LABS: Add Manual Diff / Slide Review NO; Basophils Absolute Auto 100 /uL (0-100); Basophils Percent Auto 0.7 % (0-2); Eosinophils Absolute Auto 200 /uL (0-450); Eosinophils Percent Auto 2.8 % (2-4); Hematocrit 40.4 % (41-53); Hemoglobin 13.9 g/dL (13.5-17.5); Lymphocytes Absolute Auto 1500 /uL (1100-4500); Mean Corpuscular HGB Conc 34.5 % (30-36); Mean Corpuscular Hemoglobin 30.4 PG (26-34); Mean Corpuscular Volume 88.2 fL (80-100); Monocytes Absolute Auto 700 /uL (0-900); Monocytes Percent Auto 9.5 % (3-14); Neutrophils Absolute Auto 5100 /uL (1500-7000); Platelet Count 216 X10^3/uL (150-400); Red Blood Cell Count 4.58 X10^6/uL (4.5-5.9); Red Cell Distribution Width 13.6 % (11.6-14.8); White Blood Cell Count 7.6 X10^3/uL (4.5-11.0)
[2023-09-29 09:39] LABS: Alanine Aminotransferase 18 IU/L (<50); Albumin 4.4 g/dL (3.5-5.0); Albumin Globulin Ratio 1.4 (1.0-2.8); Alkaline Phosphatase 86 U/L (38-126); Aspartate Aminotransferase 30 IU/L (17-59); BUN Creatinine Ratio 14.5 (6-22); Bilirubin Total 0.9 mg/dL (0.2-1.3); Blood Urea Nitrogen 12 mg/dL (9-20); Calcium 9.7 mg/dL (8.4-10.2); Carbon Dioxide 29 mmol/L (22-32); Chloride 107 mmol/L (98-107); Cholesterol 186 mg/dL (140-199); Estimated Glomerular Filt Rate > 60 mL/min (>60); Globulin 3.1 g/dL (1.7-4.1); Glucose 110 mg/dL (80-110); HDL Cholesterol 58 mg/dL (40-60); HEMOLYSIS < 15 (0-50); LDL Cholesterol Calculated 114 mg/dL (<100); Potassium 3.8 mmol/L (3.4-5.1); Sodium 140 mmol/L (137-145); Total Protein 7.5 g/dL (6.3-8.2); Triglycerides 72 mg/dL (35-150)
[2023-09-29 10:00] LABS: Free T4, Direct Thyroxine 1.29 ng/dL (0.78-2.19)
[2023-09-29 10:10] LABS: Prostate Specific Antigen 2.04 ng/mL (0.10-4.00)
[2023-09-29 10:14] LABS: Thyroid Stimulating Hormone 1.81 uIU/mL (0.47-4.68)
[2023-09-29 10:31] LABS: Vitamin B12 > 1000 pg/mL (239-931)
== END ==
PROVIDERS: PCP Family Medicine; Referring Provider Family Medicine; Visit Provider Family Medicine
DX: I10 Essential (primary) hypertension (principal); E03.9 Hypothyroidism, unspecified; E78.2 Mixed hyperlipidemia
CPT/HCPCS: 36415; 80053; 80061; 82607; 84153; 84439; 84443; 85025

== ENCOUNTER 2024-06-02 10:46 | Emergency (ER) | payer MEDICARE, SELFPAY ==
[2021-12-01 16:18] VITALS: BMI 23.7
[2024-06-02 10:51] VITALS: BP 195/98; PULSE 68; RESP 18; TEMP 36.6; O2SAT 99; BMI 24.2
--- NOTE | 2024-06-02 11:08 | ED.EXTPRO ---
HPI - Extremity Problem <Mindy Martinez PA-C - Last Filed: 06/02/24 12:18> General Chief complaint: Extremity Problem,Nontraumatic Stated complaint: right foot problem Time Seen by Provider: 06/02/24 11:08 Source: patient Mode of arrival: Ambulatory History of Present Illness HPI Narrative: Mr. Hernandez is a pleasant 78-year-old male with a past medical history of hypertension, hyperlipidemia, GERD, right hallux valgus who presents to the emergency department for right 2nd toe pain after he stubbed it 2 days ago. Patient reports 20 years of chronic pain and issues with his right foot secondary to bunion and his 2nd toe being much longer than the rest. States that he often stubbed it and 2 days ago he stubbed the tip of the 2nd toe causing pain with weight-bearing on the foot. He occasionally takes hydrocodone which does temporarily alleviate the pain. He saw podiatry in October of this year and at that time did not want to proceed with any surgical options as he did have bunion surgery 20 years ago. They recommended toe spacers which she does occasionally use. Patient denies a history of diabetes, fevers, chills, nausea, vomiting. He does report chronic decreased sensation in his bilateral feet. Related Data Home Medications Medication Instructions Recorded Confirmed loratadine 10 mg tablet (Claritin) 10 mg PO DAILY PRN Allergy Symptoms 06/01/21 09/29/23 Previous Rx's Medication Instructions Recorded alprazolam 0.5 mg tablet 0.5 mg PO BID PRN anxiety #14 tabs 09/29/23 benazepril 20 mg tablet 20 mg PO DAILY #90 tabs 09/29/23 hydrochlorothiazide 25 mg tablet 25 mg PO DAILY #90 tabs 09/29/23 tamsulosin 0.4 mg capsule See Rx Instructions .Route 11/21/23 .COMPLEX #90 caps hydrocodone 5 mg-acetaminophen 325 1 tab PO Q8H PRN pain #60 tabs 03/13/24 mg tablet levothyroxine 50 mcg tablet 50 mcg PO DAILY #90 tabs 04/26/24 Allergies Allergy/AdvReac Type Severity Reaction Status Date / Time No Known Drug Allergies Allergy Verified 09/29/23 10:22 Review of Systems <Mindy Martinez PA-C - Last Filed: 06/02/24 12:18> Review of Systems ROS Unobtainable: All systems reviewed & are unremarkable except as noted in HPI and below Patient History <Mindy Martinez PA-C - Last Filed: 06/02/24 12:18> Medical History Headache Bunion, right foot Ventral hernia GERD (gastroesophageal reflux disease) Greater trochanteric bursitis of right hip Trauma of urethra Hypertension Hypothyroidism Surgical History Hx of exploratory laparotomy (06/01/21) Social History household members: spouse Smoking Status: Former smoker alcohol intake: never Smoking Status: Former smoker Substance Use Type: marijuana Exam <Mindy Martinez PA-C - Last Filed: 06/02/24 12:18> Narrative Exam Narrative: GENERAL: 78 year old patient appears stated age. Well-developed patient, in no acute distress. HEAD: Atraumatic. Normocephalic. EYES: Extraocular motions intact. No scleral icterus. No injection or drainage. ENT: Nose without bleeding, purulent drainage. Airway patent. NECK: Trachea midline. Cervical ROM intact. CARDIOVASCULAR: Regular rate and rhythm. RESPIRATORY: ?Nonlabored respirations. ?Speaking in clear, full sentences. ? EXTREMITIES: Right foot with hallux valgus. Swelling of 2nd distal phalanx and overlying erythema and ecchymosis. No increased warmth, wound, or drainage. Fungal disease of the toenails. Strong DP and PT pulses, brisk capillary refill on all toes. Tenderness along the distal 2nd phalanx, no tenderness along the metatarsals. Sensation intact to light touch on the plantar and dorsal aspect of the right foot and dorsal and plantar flexion strength intact. No tenderness to palpation of the ankle. NEURO: AOx3. ?Clear speech. ?Moves all 4 extremities appropriately. Steady gait. Initial Vital Signs Initial Vital Signs: Vital Signs Temperature 97.9 F 06/02/24 10:51 Pulse Rate 68 06/02/24 10:51 Respiratory Rate 18 06/02/24 10:51 Blood Pressure 195/98 H 06/02/24 10:51 Pulse Oximetry 99 06/02/24 10:51 Oxygen Delivery Method Room Air 06/02/24 10:51 <Bebe Ramesh MD - Last Filed: 06/02/24 19:21> Initial Vital Signs Initial Vital Signs: Vital Signs Temperature 97.9 F 06/02/24 10:51 Pulse Rate 68 06/02/24 10:51 Respiratory Rate 18 06/02/24 10:51 Blood Pressure 195/98 H 06/02/24 10:51 Pulse Oximetry 99 06/02/24 10:51 Oxygen Delivery Method Room Air 06/02/24 10:51 Course <Mindy Martinez PA-C - Last Filed: 06/02/24 12:18> Orders Ordered: ED Orders 06/02/24 11:22 XR foot RT min 3V Stat Discontinued Medications Acetaminophen (Acetaminophen 325 Mg Tablet) 650 mg PO NOW ONE Stop: 06/02/24 11:23 Last Admin: 06/02/24 11:30 Dose: 650 mg Documented By: ES Ibuprofen (Ibuprofen 400 Mg Tablet) 400 mg PO NOW ONE Stop: 06/02/24 11:23 Last Admin: 06/02/24 11:29 Dose: 400 mg Documented By: MILY Vital Signs Vital signs: Vital Signs - 8 hr 06/02/24 10:51 Temperature 97.9 F Pulse Rate 68 Respiratory Rate 18 Blood Pressure 195/98 H Pulse Oximetry 99 Oxygen Delivery Method Room Air <Bebe Ramesh MD - Last Filed: 06/02/24 19:21> Orders Ordered: ED Orders 06/02/24 11:22 XR foot RT min 3V Stat Discontinued Medications Acetaminophen (Acetaminophen 325 Mg Tablet) 650 mg PO NOW ONE Stop: 06/02/24 11:23 Last Admin: 06/02/24 11:30 Dose: 650 mg Documented By: ES Ibuprofen (Ibuprofen 400 Mg Tablet) 400 mg PO NOW ONE Stop: 06/02/24 11:23 Last Admin: 06/02/24 11:29 Dose: 400 mg Documented By: ES Vital Signs Vital signs: Vital Signs - 8 hr 06/02/24 10:51 Temperature 97.9 F Pulse Rate 68 Respiratory Rate 18 Blood Pressure 195/98 H Pulse Oximetry 99 Oxygen Delivery Method Room Air MDM - Extremity (Nontraumatic) <Mindy Martinez PA-C - Last Filed: 06/02/24 12:18> Medical Records Attestation: I reviewed the patient's medical records. Medical records narrative: 10/24/[address] Dr[address] Roxy Chawla. 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 She recommended toe spacer or Silipos top. Imaging Data right foot x-ray: Radiologist's Impression: PROCEDURE: XR FOOT RT MIN 3V INDICATIONS: right 2nd toe pain after stubbed ; hx bunion TECHNIQUE: 3 views of the foot were acquired. COMPARISON: [facility] [place], CR, XR FOOT 3 VIEWS WEIGHT BEARING RIGHT, 10/24/2023, 9:09. FINDINGS: Bones: In this patient with this given history, scrutiny is given to the 2nd toe. No displaced fracture seen of the 2nd toe. No displaced fractures are seen elsewhere. Focal degenerative change can be seen involving the 1st metatarsophalangeal joint, with focal joint space narrowing, with associated subchondral sclerosis and osteophyte formation. Milder degenerative changes are seen elsewhere. Incidental note is made of an accessory ossicle, an os tibiale externum. Soft tissues: No tibiotalar joint effusion. Achilles tendon appears normal. Atherosclerotic calcification is noted. IMPRESSION: Negative for acute fracture of the 2nd toe. No other fractures are seen. Focal prominent 1st metatarsophalangeal joint change seen. [facility] Narrative Medical decision making narrative: 78-year-old male with a past medical history of hypertension, hyperlipidemia, GERD, right bunion presents to the emergency department for right 2nd toe pain after stubbing it 2 days ago. Differential diagnosis includes but is not limited to toe fracture, bunion, infection, contusion, sprain, etc. On exam patient is in no acute distress, nontoxic appearing, vital signs within normal limits except for elevated blood pressure. Patient does have history of hypertension and states that he just took his blood pressure medications at home. His right 2nd toe, area of pain, has swelling and bruising and erythema consistent with history of trauma. No wound or signs of infection. Toe is neurovascularly intact. We will proceed with x-ray of foot and ibuprofen and Tylenol for pain. Patient has a podiatry note from 10/24/2023 which was reviewed describing similar anatomy and problems patient is experiencing today. Right foot x-ray reveals negative fracture of the 2nd toe. No other fractures. Patient does have focal prominent 1st metatarsophalangeal joint degenerative changes which have been seen on previous x-rays as well. Results discussed with patient and they provided him a printed copy of his x-ray. After shared decision-making, he was placed into a right foot postop shoe to provide protection from repeat stubbing the toes and to allow wide open toe box. 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 Recommended ibuprofen/Tylenol for pain, toe spacers, metatarsal foot pad, general supportive care. We discussed signs and symptoms of infection to look out for. Patient is very happy with the postop shoe and reports improvement in his pain. Patient verbalized understanding of all information, is ambulatory and stable for discharge. Discharge Plan Departure Patient Disposition: Home Clinical Impression: Arthritis of first metatarsophalangeal (MTP) joint of right foot, Hallux valgus of right foot Contusion of second toe, right Qualifiers: Encounter type: initial encounter Qualified Code(s): S90.121A - Contusion of right lesser toe(s) without damage to nail, initial encounter Instructions: DI for Toe Sprain Activity Restrictions/Additional Instructions: Please call to schedule an appointment with podiatry for further management of your toe/foot pain. You may call [facility] at [phone] and follow up with Dr. Roxy Chawla who you saw in October. Please take Ibuprofen (Motrin/Advil) or Acetaminophen (Tylenol) for pain. These are available over the counter. You may take Ibuprofen 400 mg every 8 hours with food for pain. You may also take Acetaminophen 650 mg every 4-6 hours for pain. Do not exceed 3000 mg of Tylenol a day as this can cause liver damage. Do not drink alcohol with either of these medications. It is very important to wear properly fitting shoes with a wide toe box to accommodate your longer 2nd toe. I would avoid open toed shoes as this does not serve any protection for your toes. Be very mindful of your surroundings and avoid walking barefoot. You may purchase an [id number] Silipos top foot or metatarsal pad to help support your foot. Please follow up with your primary care doctor within the next 2-3 days for ER follow-up. (If you do not have a PCP you can call [phone]. ?to schedule an appointment with an [facility] Primary Care Provider) IF YOU DEVELOP ANY NEW OR WORSENING SYMPTOMS, RETURN TO THE ER! Please read the attached instructions, they highlight more specific treatments and interventions for you at home. Thank you for letting me participate in your care, Mindy Martinez PA-C Prescriptions: No Action tamsulosin 0.4 mg capsule See Rx Instructions .ROUTE .COMPLEX Qty: 90 2RF Dose Instruction: TAKE 1 CAPSULE BY MOUTH EVERY DAY Rx Instructions: TAKE 1 CAPSULE BY MOUTH EVERY DAY hydrocodone-acetaminophen 5-325 mg tablet 1 tab PO Q8H PRN (Reason: pain) Qty: 60 0RF levothyroxine 50 mcg tablet 50 mcg PO DAILY Qty: 90 1RF alprazolam 0.5 mg tablet 0.5 mg PO BID PRN (Reason: anxiety) Qty: 14 1RF benazepril 20 mg tablet 20 mg PO DAILY Qty: 90 3RF hydrochlorothiazide 25 mg tablet 25 mg PO DAILY Qty: 90 3RF loratadine [Claritin] 10 mg tablet 10 mg PO DAILY PRN (Reason: Allergy Symptoms) Referrals: Ezra Garcia DO [Primary Care Provider] - Stand Alone Forms: Patient Portal/API/Survey ED Sign-out <Bebe Ramesh MD - Last Filed: 06/02/24 19:21> Cosign ED Attending Leonora Attestation: I was immediately available in the department for consultation throughout this patient's visit. Bebe Ramesh MD
--- NOTE | 2024-06-02 11:22 | DI.RAD.S_ITS ---
PROCEDURE: XR FOOT RT MIN 3V INDICATIONS: right 2nd toe pain after stubbed ; hx bunion TECHNIQUE: 3 views of the foot were acquired. COMPARISON: [facility] [place], CR, XR FOOT 3 VIEWS WEIGHT BEARING RIGHT, 10/24/2023, 9:09. FINDINGS: Bones: In this patient with this given history, scrutiny is given to the 2nd toe. No displaced fracture seen of the 2nd toe. No displaced fractures are seen elsewhere. Focal degenerative change can be seen involving the 1st metatarsophalangeal joint, with focal joint space narrowing, with associated subchondral sclerosis and osteophyte formation. Milder degenerative changes are seen elsewhere. Incidental note is made of an accessory ossicle, an os tibiale externum. Soft tissues: No tibiotalar joint effusion. Achilles tendon appears normal. Atherosclerotic calcification is noted. IMPRESSION: Negative for acute fracture of the 2nd toe. No other fractures are seen. Focal prominent 1st metatarsophalangeal joint change seen. Dictated by: Vincent Bautista M.D. on 06/02/2024 at 10:45 Approved by: Vincent Bautista M.D. on 06/02/2024 at 10:46
[2024-06-02] MEDS: IBUPROFEN 400 MG TABLET PO (11:29)
[2024-06-02] MEDS: ACETAMINOPHEN 325 MG TABLET 650 MG PO (11:30)
== END 2024-06-02 12:23 | disposition home or self-care (01) ==
PROVIDERS: Emergency Provider Physician Assistant; PCP Family Medicine
DX: S90.121A Contusion of right lesser toe(s) without damage to nail, initial encounter (principal); M20.11 Hallux valgus (acquired), right foot; M19.071 Primary osteoarthritis, right ankle and foot
CPT/HCPCS: 73630; 99283

== ENCOUNTER → 2024-12-27 07:27 | Outpatient (CLI) | payer MEDICARE, SELFPAY ==
[2021-12-01 16:18] VITALS: BMI 23.7
[2024-12-27 08:00] LABS: Add Manual Diff / Slide Review NO; Basophils Absolute Auto 0 /uL (0-100); Basophils Percent Auto 0.7 % (0-2); Eosinophils Absolute Auto 200 /uL (0-450); Eosinophils Percent Auto 3.4 % (2-4); Hematocrit 39.9 % (41-53); Hemoglobin 13.9 g/dL (13.5-17.5); Lymphocytes Absolute Auto 1200 /uL (1100-4500); Lymphocytes Percent Auto 19.6 % (25-40); Mean Corpuscular HGB Conc 34.8 % (30-36); Mean Corpuscular Hemoglobin 30.4 PG (26-34); Mean Corpuscular Volume 87.4 fL (80-100); Monocytes Absolute Auto 700 /uL (0-900); Monocytes Percent Auto 12.1 % (3-14); Neutrophils Absolute Auto 3900 /uL (1500-7000); Neutrophils Percent Auto 64.2 % (50-75); Platelet Count 241 X10^3/uL (150-400); Red Blood Cell Count 4.57 X10^6/uL (4.5-5.9); Red Cell Distribution Width 13.1 % (11.6-14.8)
[2024-12-27 08:19] LABS: Alanine Aminotransferase 21 IU/L (<50); Albumin 4.5 g/dL (3.5-5.0); Albumin Globulin Ratio 2.1 (1.0-2.8); Alkaline Phosphatase 91 U/L (38-126); Aspartate Aminotransferase 36 IU/L (17-59); BUN Creatinine Ratio 13.9 (6-22); Bilirubin Total 0.9 mg/dL (0.2-1.3); Blood Urea Nitrogen 11 mg/dL (9-20); Calcium 9.8 mg/dL (8.4-10.2); Carbon Dioxide 28 mmol/L (22-32); Chloride 96 mmol/L (98-107); Cholesterol 155 mg/dL (140-199); Estimated Glomerular Filt Rate > 60 mL/min (>60); Globulin 2.1 g/dL (1.7-4.1); Glucose 121 mg/dL (70-99); HDL Cholesterol 58 mg/dL (40-60); HEMOLYSIS < 15 (0-50); LDL Cholesterol Calculated 83 mg/dL (<100); Potassium 3.9 mmol/L (3.4-5.1); Sodium 131 mmol/L (137-145); Total Protein 6.6 g/dL (6.3-8.2); Triglycerides 70 mg/dL (35-150)
[2024-12-27 08:50] LABS: TSH w/ Reflex to FT4 1.59 uIU/mL (0.47-4.68)
[2024-12-27 09:09] LABS: Vitamin B12 > 1000 pg/mL (239-931)
== END ==
PROVIDERS: PCP Family Medicine; Referring Provider Family Medicine; Visit Provider Family Medicine
DX: K21.9 Gastro-esophageal reflux disease without esophagitis (principal); E78.2 Mixed hyperlipidemia; I10 Essential (primary) hypertension; E03.9 Hypothyroidism, unspecified
CPT/HCPCS: 36415; 80053; 80061; 82607; 84443; 85025